=== PATIENT | male | born 1955 | race Two or more races ===

== ENCOUNTER 2016-08-16 07:04 | Inpatient (IN) | payer MEDICAID ==
[2016-08-16] VITALS (7 sets, daily range): BP systolic 105–179; BP diastolic 57–87
[~2016-08-16] VITALS: Ht 170.2 cm; Wt 81.6 kg
[2016-08-16] MEDS ORDERED: LANTUS SOL100 UNIT/1 SUBQ (07:05)
[2016-08-16] MEDS ORDERED: BP MED (07:05)
--- NOTE | 2016-08-16 07:18 | Emergency Room Report ---
History of Present Illness General Chief Complaint: Upper Respiratory Illness Source: Patient Present Illness HPI Patient present with complaints of ongoing cough and congestion Patient reports that he was at [facility] with pneumonia recently Denies any vomiting Denies any diarrhea Patient has increased anterior chest wall pain with a cough Questionable low-grade fever Denies any neck pain or photophobia Denies any recent travel Allergies: Coded Allergies: No Known Allergies (Unverified , 08/16/16) Patient History Past Medical History: see triage record Pertinent Family History: none Reviewed Nursing Documentation: PMH: Agreed, PSxH: Agreed Nursing Documentation-PMH Hx Hypertension: Yes Hx Diabetes: Yes Review of Systems All Other Systems: negative except mentioned in HPI Physical Exam Vital Signs Date Time Temp Pulse Resp B/P Pulse Ox O2 Delivery O2 Flow Rate FiO2 08/16/16 06:59 99.5 101 20 185/90 100 Room Air Sp02 EP Interpretation: reviewed, normal General Appearance: well appearing, no apparent distress Head: normocephalic, atraumatic Eyes: bilateral eye EOMI, bilateral eye PERRL ENT: hearing grossly normal, normal pharynx, TMs + canals normal, uvula midline Neck: full range of motion, supple, no meningismus, no bony tend Respiratory: no rhonchi, no respiratory distress, no retraction, no accessory muscle use, crackles - Final crackles in both lower lobes, otherwise moving air well Cardiovascular #1: normal peripheral pulses, regular rate, rhythm, no edema, no gallop, no JVD, no murmur Gastrointestinal: normal bowel sounds, non tender, soft, no mass, no organomegaly, non-distended, no guarding, no hernia, no pulsatile mass, no rebound Genitourinary: no CVA tenderness Musculoskeletal: normal inspection Neurologic: oriented x3, responsive, supervisor records change III-XII nml as tested, motor strength/ tone normal, sensory intact Psychiatric: mood/affect normal Skin: normal color, no rash, warm/dry, palpation normal Lymphatic: normal inspection, no adenopathy Medical Decision Making Diagnostic Impression: Primary Impression: CHF (congestive heart failure) Additional Impression: Pleural effusion ER Course Patient is a fairly complex patient with multiple differential to consideration including but not limited to cardiac cardiopulmonary and vascular emergencies Patient's showing evidence of cardiomegaly, left lower lobe is also abnormal Patient was provided with diuretics and antibiotics And at this time requires admission for further care Labs Test 08/16/16 07:18 White Blood Count 7.3 K/UL (4.8-10.8) Red Blood Count 3.95 M/UL (4.70-6.10) Hemoglobin 11.1 G/DL (14.2-18.0) Hematocrit 34.3 % (42.0-52.0) Mean Corpuscular Volume 87 FL (80-99) Mean Corpuscular Hemoglobin 28.2 PG (27.0-31.0) Mean Corpuscular Hemoglobin Concent 32.5 G/DL (32.0-36.0) Red Cell Distribution Width 13.1 % (11.6-14.8) Platelet Count 103 K/UL (150-450) Mean Platelet Volume 9.6 FL (6.5-10.1) Neutrophils (%) (Auto) % (45.0-75.0) Lymphocytes (%) (Auto) % (20.0-45.0) Monocytes (%) (Auto) % (1.0-10.0) Eosinophils (%) (Auto) % (0.0-3.0) Basophils (%) (Auto) % (0.0-2.0) Differential Total Cells Counted 100 Neutrophils % (Manual) 93 % (45-75) Lymphocytes % (Manual) 4 % (20-45) Monocytes % (Manual) 1 % (1-10) Eosinophils % (Manual) 0 % (0-3) Basophils % (Manual) 2 % (0-2) Band Neutrophils 0 % (0-8) Platelet Estimate Decreased Platelet Morphology Normal Red Blood Cell Morphology Normal Sodium Level 139 mEQ/L (135-145) Potassium Level 3.9 mEQ/L (3.4-4.9) Chloride Level 99 mEQ/L (98-107) Carbon Dioxide Level 25 mEQ/L (20-30) Anion Gap 15 (5-15) Blood Urea Nitrogen 33 mg/dL (7-23) Creatinine 3.0 mg/dL (0.7-1.2) Estimat Glomerular Filtration Rate 21.4 mL/min (>60) Glucose Level 268 mg/dL (74-106) Calcium Level 7.8 mg/dL (8.6-10.2) Total Bilirubin 0.3 mg/dL (0.0-1.2) Aspartate Amino Transf (AST/SGOT) 58 U/L (5-40) Alanine Aminotransferase (ALT/SGPT) 34 U/L (3-41) Alkaline Phosphatase 93 U/L (40-129) Total Creatine Kinase 802 U/L (38-174) Creatine Kinase MB 5.7 ng/mL (< 6.7) Creatine Kinase MB Relative Index 0.7 Troponin I < 0.30 ng/mL (<=0.30) Pro-B-Type Natriuretic Peptide 01893 pg/mL (0-125) Total Protein 5.5 g/dL (6.6-8.7) Albumin 2.6 g/dL (3.5-5.2) Globulin 2.9 g/dL Albumin/Globulin Ratio 0.8 (1.0-2.7) EKG Diagnostic Results Rate: normal Rhythm: NSR ST Segments: other - Specific ST and T wave changes, interventricular block Rhythm Strip Diag. Results EP Interpretation: yes Rate: 67 Rhythm: NSR, no PVC's, no ectopy Chest X-Ray Diagnostic Results EP Interpretation: Yes Findings: no pneumothorax, other - Cardiomegaly, pulmonary congestion, left lower lobe atelectasis/effusion/pneumonia Number of Views: 1 CT/MRI/US Diagnostic Results CT/MRI/US Diagnostic Results : Impression CT chest pain for further inpatient followup Last Vital Signs Date Time Temp Pulse Resp B/P Pulse Ox O2 Delivery O2 Flow Rate FiO2 08/16/16 06:59 99.5 101 20 185/90 100 Room Air Status: improved Disposition: ADMITTED INPATIENT Condition: Serious BRIGITTE HANCOCK D.O. Aug 16, 2016 07:18
[2016-08-16] MEDS ORDERED: Albuterol ud Inhalation HHN ONE (07:30)
[2016-08-16] MEDS ORDERED: Ketorolac 30mg Inj IV ONE (07:30)
[2016-08-16] MEDS ORDERED: Promethazine/Codeine 5ml UD ORAL ONE (07:30)
[2016-08-16 07:40] LABS: MEAN CORPUSCULAR HEMOGLOBIN 28.2 PG (27.0-31.0); MEAN CORPUSCULAR HGB CONC 32.5 G/DL (32.0-36.0); MEAN CORPUSCULAR VOLUME 87 FL (80-99); MEAN PLATELET VOLUME 9.6 FL (6.5-10.1); PLATELET COUNT 103 K/UL (150-450); RED BLOOD COUNT 3.95 M/UL (4.70-6.10); RED CELL DISTRIBUTION WIDTH 13.1 % (11.6-14.8); WHITE BLOOD COUNT 7.3 K/UL (4.8-10.8)
[2016-08-16 07:52] LABS: ALBUMIN/GLOBULIN RATIO 0.8 (1.0-2.7); CALCIUM 7.8 mg/dL (8.6-10.2); GLOMERULAR FILTRATION RATE 21.4 mL/min (>60); POTASSIUM 3.9 mEQ/L (3.4-4.9); TOTAL PROTEIN 5.5 g/dL (6.6-8.7); TROPONIN I < 0.30 ng/mL (<=0.30)
[2016-08-16] MEDS ORDERED: Aspirin Baby 81mg ORAL ONE (08:00)
[2016-08-16 08:02] LABS: BAND NEUTROPHILS % (MANUAL) 0 % (0-8); BASOPHILS % (MANUAL) 2 % (0-2); EOSINOPHILS % (MANUAL) 0 % (0-3); LYMPHOCYTES % (MANUAL) 4 % (20-45); NEUTROPHILS % (MANUAL) 93 % (45-75); PLATELET ESTIMATE DECREASED; PLATELET MORPHOLOGY NORMAL; TOTAL CELLS COUNTED 100
[2016-08-16 08:03] LABS: CKMB 5.7 ng/mL (< 6.7)
[2016-08-16] MEDS ORDERED: Acetaminophen 500mg (ES) tab ORAL ONE (10:15)
[2016-08-16] MEDS ORDERED: ASPIRIN81 MG ORAL (10:16)
[2016-08-16] MEDS ORDERED: LISINOPRIL5 MG ORAL (10:16)
--- NOTE | 2016-08-16 10:43 | Diagnostic Imaging Report ---
Clinical Indication: SOB, ongoing cough and congestion, increased anterior chest wall pain, questionable low-grade fever Technique: Spiral acquisitions obtained through the chest. No IV contrast utilized, due to renal insufficiency. Multiplanar reconstructions generated. Total dose length product 704 mGycm. CTDIvol(s) 19 mGy Comparison: None Findings:There are small bilateral pleural effusions, slightly larger on the left than on the right. Effusion on the left could be loculated. There is some compressive parenchymal atelectasis at both lung bases. No definite infiltrates. No masses or nodules, or congestion. The trachea and proximal bronchi appear unremarkable. There is fluid surrounding the heart. However, this appears to be outside the pericardium-within the pericardial fat and extending into the anterior mediastinal fat and cephalad into the periphery of the prevascular space. There are prominent although not frankly enlarged mediastinal lymph nodes. There are dense coronary artery calcifications. The heart is borderline enlarged. Included thyroid is unremarkable. No axillary or chest wall mass or adenopathy. The included upper abdominal anatomy demonstrates splenomegaly, with the spleen measuring at least 14.4 cm long axis dimension. The esophagus is unremarkable. There is an incompletely healed fracture with callus of the lateral right ninth rib. Impression: Small bilateral pleural effusions, larger on the left on the right. That on the left could be loculated Basilar compressive atelectasis Unusual mediastinal fluid which appears to be extrapericardial. Etiology uncertain. Borderline cardiomegaly Incompletely healed right ninth rib fracture Splenomegaly The CT scanner at [facility] is accredited by the [employer] and the scans are performed using protocols designed to limit radiation exposure to as low as reasonably achievable to attain images of sufficient resolution adequate for diagnostic evaluation.
[2016-08-16] MEDS ORDERED: Norco 5mg/325mg tab ORAL PRN (13:45)
[2016-08-16] MEDS ORDERED: Nitroglycerin Subl 0.4mg tab (Bottle Of 25) SL PRN (13:45)
[2016-08-16] MEDS: Heparin 5000 units/ml inj SUBQ SCH ×2 (14:00→22:00)
[2016-08-16 15:10] LABS: TROPONIN I < 0.30 ng/mL (<=0.30)
[2016-08-16] MEDS ORDERED: Levemir Flexpen SUBQ SCH (16:00)
--- NOTE | 2016-08-16 16:41 | History & Physical ---
History and Physical History & Physicial Dictated for Int Med-Dr Frances no. [id number]. MARCUS GIL Aug 16, 2016 16:41
[2016-08-16] MEDS: NovoLOG Insulin Flexpen SUBQ SCH ×2 (16:57→21:00)
--- NOTE | 2016-08-16 17:30 | Consultation ---
History of Present Illness General Date patient seen: Aug 16, 2016 Chief Complaint: Upper Respiratory Illness Present Illness HPI 61 year old, with hx of recent bronchitis/ pneumonia treated with oral antibiotics three weeks ago, presented with cc of pleuritic chest pain. CT of chest showing loculated pleural effusion Allergies: Coded Allergies: No Known Allergies (Unverified , 08/16/16) Medication History Scheduled Aspirin* (Aspirin*), 81 MG ORAL DAILY, (Reported) Insulin Glargine (Lantus), 20 SUBQ DAILY, (Reported) Lisinopril (Lisinopril*), Unknown Dose ORAL BID, (Reported) Miscellaneous Medications [Bp Med], (Reported) Patient History Healthcare decision maker Resuscitation status Advanced Directive on File Review of Systems All Other Systems: negative except mentioned in HPI Physical Exam General Appearance: WD/WN Neck: non-tender, supple Respiratory/Chest: chest wall non-tender, lungs clear Cardiovascular/Chest: normal peripheral pulses, regular rhythm, no JVD Abdomen: normal bowel sounds, soft Last 24 Hour Vital Signs Date Time Temp Pulse Resp B/P Pulse Ox O2 Delivery O2 Flow Rate FiO2 08/16/16 16:00 97.8 76 19 124/74 97 Room Air 08/16/16 13:40 97.7 75 17 120/75 75 Room Air 08/16/16 12:25 98.6 77 20 120/60 96 Room Air 08/16/16 12:17 98.6 77 20 120/60 96 Room Air 08/16/16 11:17 98.6 80 20 105/67 96 Room Air 08/16/16 11:16 98.6 08/16/16 09:27 99.3 08/16/16 09:24 99.3 94 23 113/57 95 Room Air 08/16/16 07:50 99.7 08/16/16 07:33 100 15 99 08/16/16 07:31 100 15 98 Room Air 08/16/16 07:30 100 15 Room Air 08/16/16 07:22 98 14 Room Air 08/16/16 07:22 99.5 98 14 179/86 100 Room Air 08/16/16 06:59 99.5 101 20 185/90 100 Room Air Laboratory Tests Test 08/16/16 07:18 08/16/16 14:20 White Blood Count 7.3 K/UL (4.8-10.8) Red Blood Count 3.95 M/UL (4.70-6.10) L Hemoglobin 11.1 G/DL (14.2-18.0) L Hematocrit 34.3 % (42.0-52.0) L Mean Corpuscular Volume 87 FL (80-99) Mean Corpuscular Hemoglobin 28.2 PG (27.0-31.0) Mean Corpuscular Hemoglobin Concent 32.5 G/DL (32.0-36.0) Red Cell Distribution Width 13.1 % (11.6-14.8) Platelet Count 103 K/UL (150-450) L Mean Platelet Volume 9.6 FL (6.5-10.1) Neutrophils (%) (Auto) % (45.0-75.0) Lymphocytes (%) (Auto) % (20.0-45.0) Monocytes (%) (Auto) % (1.0-10.0) Eosinophils (%) (Auto) % (0.0-3.0) Basophils (%) (Auto) % (0.0-2.0) Differential Total Cells Counted 100 Neutrophils % (Manual) 93 % (45-75) H Lymphocytes % (Manual) 4 % (20-45) L Monocytes % (Manual) 1 % (1-10) Eosinophils % (Manual) 0 % (0-3) Basophils % (Manual) 2 % (0-2) Band Neutrophils 0 % (0-8) Platelet Estimate Decreased L Platelet Morphology Normal Red Blood Cell Morphology Normal Sodium Level 139 mEQ/L (135-145) Potassium Level 3.9 mEQ/L (3.4-4.9) Chloride Level 99 mEQ/L (98-107) Carbon Dioxide Level 25 mEQ/L (20-30) Anion Gap 15 (5-15) Blood Urea Nitrogen 33 mg/dL (7-23) H Creatinine 3.0 mg/dL (0.7-1.2) H Estimat Glomerular Filtration Rate 21.4 mL/min (>60) Glucose Level 268 mg/dL (74-106) H Calcium Level 7.8 mg/dL (8.6-10.2) L Total Bilirubin 0.3 mg/dL (0.0-1.2) Aspartate Amino Transf (AST/SGOT) 58 U/L (5-40) H Alanine Aminotransferase (ALT/SGPT) 34 U/L (3-41) Alkaline Phosphatase 93 U/L (40-129) Total Creatine Kinase 802 U/L (38-174) H Creatine Kinase MB 5.7 ng/mL (< 6.7) Creatine Kinase MB Relative Index 0.7 Troponin I < 0.30 ng/mL (<=0.30) < 0.30 ng/mL (<=0.30) Pro-B-Type Natriuretic Peptide 88619 pg/mL (0-125) H Total Protein 5.5 g/dL (6.6-8.7) L Albumin 2.6 g/dL (3.5-5.2) L Globulin 2.9 g/dL Albumin/Globulin Ratio 0.8 (1.0-2.7) L Height (Feet): 5 Height (Inches): 7.00 Weight (Pounds): 180 Medications Current Medications Medications (Trade) Dose Ordered Sig/Laquita Route PRN Reason Start Time Stop Time Status Last Admin Dose Admin Acetaminophen/ Hydrocodone Bitart ([place] 5/325) 1 tab Q4H PRN ORAL Moderate Pain (Pain Scale 4-6) 08/16/16 13:45 08/23/16 13:44 08/16/16 14:14 Aspirin (ASA) 81 mg DAILY ORAL 08/17/16 09:00 09/16/16 08:59 Dextrose STAT PRN IV Hypoglycemia 08/16/16 14:00 09/15/16 13:59 Heparin Sodium (Porcine) (Heparin 5000 units/ml) 5,000 units EVERY 8 HOURS SUBQ 08/16/16 14:00 09/15/16 13:59 Hydromorphone HCl (Dilaudid) 1 mg Q4H PRN IVP Severe Pain (Pain Scale 7-10) 08/16/16 17:15 08/23/16 17:14 Insulin Aspart (NovoLOG) BEFORE MEALS AND HS SUBQ 08/16/16 16:30 09/15/16 16:29 08/16/16 16:57 Insulin Detemir (Levemir) 20 units DAILY SUBQ 08/16/16 16:00 09/15/16 15:59 08/16/16 16:52 Levofloxacin (Levaquin) 100 ml @ 100 mls/hr Q24H IVPB 08/17/16 09:00 08/24/16 08:59 Lisinopril (Zestril) 5 mg DAILY ORAL 08/17/16 09:00 09/16/16 08:59 Nitroglycerin (Ntg) 0.4 mg Q5M PRN SL Prn Chest Pain 08/16/16 13:45 09/15/16 13:44 Ondansetron HCl (Zofran) 4 mg Q6H PRN IVP Nausea & Vomiting 08/16/16 17:15 09/15/16 17:14 Assessment/Plan Problem List: (1) Pleural effusion ICD Codes: J90 - Pleural effusion, not elsewhere classified SNOMED: 80094410 (2) Pneumonia ICD Codes: J18.9 - Pneumonia, unspecified organism SNOMED: 826024356 (3) ATN (acute tubular necrosis) ICD Codes: N17.0 - Acute kidney failure with tubular necrosis SNOMED: 39017129 Assessment/Plan iv antibioitcs check cultures cxr in am ortiz culture LINDA GREENWOOD Aug 16, 2016 17:30
--- NOTE | 2016-08-16 17:36 | Diagnostic Imaging Report ---
Indication: SOB, chest pain Technique: One view of the chest Comparison: none Findings: The heart is enlarged. Infiltrate is seen in the left in the lower lung periphery. There is probably a small amount of pleural fluid on the left. Right lung and pleural space are clear except for some right basilar atelectasis. The heart is borderline Impression: Left lateral basilar infiltrate and pleural effusion Borderline cardiomegaly
[2016-08-16] MEDS: HYDROmorphone 1mg/ml Carpuject IVP PRN ×2 (18:28→23:37)
--- NOTE | 2016-08-16 18:56 | Cardiology Progress Note ---
Assessment/Plan Assessment/Plan The patient is seen and examined, full consult note is dictated. Objective Last 24 Hour Vital Signs Date Time Temp Pulse Resp B/P Pulse Ox O2 Delivery O2 Flow Rate FiO2 08/16/16 16:00 97.8 76 19 124/74 97 Room Air 08/16/16 13:40 97.7 75 17 120/75 75 Room Air 08/16/16 12:25 98.6 77 20 120/60 96 Room Air 08/16/16 12:17 98.6 77 20 120/60 96 Room Air 08/16/16 11:17 98.6 80 20 105/67 96 Room Air 08/16/16 11:16 98.6 08/16/16 09:27 99.3 08/16/16 09:24 99.3 94 23 113/57 95 Room Air 08/16/16 07:50 99.7 08/16/16 07:33 100 15 99 08/16/16 07:31 100 15 98 Room Air 08/16/16 07:30 100 15 Room Air 08/16/16 07:22 98 14 Room Air 08/16/16 07:22 99.5 98 14 179/86 100 Room Air 08/16/16 06:59 99.5 101 20 185/90 100 Room Air Laboratory Tests Test 08/16/16 07:18 08/16/16 14:20 White Blood Count 7.3 K/UL (4.8-10.8) Red Blood Count 3.95 M/UL (4.70-6.10) L Hemoglobin 11.1 G/DL (14.2-18.0) L Hematocrit 34.3 % (42.0-52.0) L Mean Corpuscular Volume 87 FL (80-99) Mean Corpuscular Hemoglobin 28.2 PG (27.0-31.0) Mean Corpuscular Hemoglobin Concent 32.5 G/DL (32.0-36.0) Red Cell Distribution Width 13.1 % (11.6-14.8) Platelet Count 103 K/UL (150-450) L Mean Platelet Volume 9.6 FL (6.5-10.1) Neutrophils (%) (Auto) % (45.0-75.0) Lymphocytes (%) (Auto) % (20.0-45.0) Monocytes (%) (Auto) % (1.0-10.0) Eosinophils (%) (Auto) % (0.0-3.0) Basophils (%) (Auto) % (0.0-2.0) Differential Total Cells Counted 100 Neutrophils % (Manual) 93 % (45-75) H Lymphocytes % (Manual) 4 % (20-45) L Monocytes % (Manual) 1 % (1-10) Eosinophils % (Manual) 0 % (0-3) Basophils % (Manual) 2 % (0-2) Band Neutrophils 0 % (0-8) Platelet Estimate Decreased L Platelet Morphology Normal Red Blood Cell Morphology Normal Sodium Level 139 mEQ/L (135-145) Potassium Level 3.9 mEQ/L (3.4-4.9) Chloride Level 99 mEQ/L (98-107) Carbon Dioxide Level 25 mEQ/L (20-30) Anion Gap 15 (5-15) Blood Urea Nitrogen 33 mg/dL (7-23) H Creatinine 3.0 mg/dL (0.7-1.2) H Estimat Glomerular Filtration Rate 21.4 mL/min (>60) Glucose Level 268 mg/dL (74-106) H Calcium Level 7.8 mg/dL (8.6-10.2) L Total Bilirubin 0.3 mg/dL (0.0-1.2) Aspartate Amino Transf (AST/SGOT) 58 U/L (5-40) H Alanine Aminotransferase (ALT/SGPT) 34 U/L (3-41) Alkaline Phosphatase 93 U/L (40-129) Total Creatine Kinase 802 U/L (38-174) H Creatine Kinase MB 5.7 ng/mL (< 6.7) Creatine Kinase MB Relative Index 0.7 Troponin I < 0.30 ng/mL (<=0.30) < 0.30 ng/mL (<=0.30) Pro-B-Type Natriuretic Peptide 62469 pg/mL (0-125) H Total Protein 5.5 g/dL (6.6-8.7) L Albumin 2.6 g/dL (3.5-5.2) L Globulin 2.9 g/dL Albumin/Globulin Ratio 0.8 (1.0-2.7) L ESTER SEVILLA Aug 16, 2016 18:56
[2016-08-16 19:55] LABS: APPEARANCE,URINE CLEAR; KETONES,URINE NEGATIVE (NEGATIVE); LEUKOCYTE ESTERASE ,URINE NEGATIVE (NEGATIVE); NITRITE,URINE NEGATIVE (NEGATIVE); PH,URINE 6.5 (4.5-8.0); PROTEIN,URINE 4+ (NEGATIVE); UROBILINOGEN,URINE NORMAL MG/DL (0.0-1.0)
[2016-08-16 20:03] LABS: BACTERIA,URINE FEW /HPF; WBC,URINE 0-2 /HPF (0 - 0)
--- NOTE | 2016-08-16 21:20 | History and Physical Report ---
DATE OF ADMISSION: 08/16/2016 CHIEF COMPLAINT: The patient is a 61-year-old male, who presents with complaint of cough and chest pain. HISTORY OF PRESENT ILLNESS: The patient began to experience cough yesterday, 08/15/2016. The patient states he began to get chest pain. The patient states the cough and the chest pain was so bad he could not sleep. The patient presented to [facility] emergency room. The patient was admitted for cough and chest pain to rule out acute myocardial infarction versus pneumonia. PAST MEDICAL HISTORY: Significant for: 1. Type 2 diabetes. 2. Hypertension. PAST SURGICAL HISTORY: Significant for: 1. 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 2. Cholecystectomy. CURRENT MEDICATIONS: 1. Aspirin 81 mg one tablet p.o. daily. 2. Lantus insulin 20 units subcutaneously at bedtime. 3. Lisinopril 5 mg one tablet p.o. daily. ALLERGIES: No known drug allergies. SOCIAL HISTORY: The patient is single, however, has a long-time partner. The patient denies tobacco use. The patient denies alcohol use, having quit 3 years previously. The patient admits to previous heavy alcohol use. FAMILY HISTORY: Negative for diabetes or coronary artery disease. REVIEW OF SYSTEMS: Constitutional: The patient denies weight loss or weight gain. The patient does complain of subjective fevers and chills. HEENT: The patient denies ear or throat pain. The patient denies headache. Cardiovascular: The patient complains of band-like chest pain as above. The patient denies palpitations. Abdominal: The patient denies nausea, vomiting, diarrhea, or constipation. Genitourinary: The patient denies dysuria or increased frequency of urination. Neuromuscular: The patient denies seizures or generalized weakness. PHYSICAL EXAMINATION: VITAL SIGNS: Temperature 98.6, respirations 20, pulse 80, and blood pressure 105/67. GENERAL: The patient is a well-developed and well-nourished male, who appears older than his stated age. HEENT: Eyes, pupils are equal and responsive to light and accommodation. Extraocular movements are intact. NECK: Supple. No lymphadenopathy. CHEST: Lungs are clear to auscultation bilaterally without wheezes or rales. CARDIOVASCULAR: Regular rhythm and rate. S1 and S2 normal without murmurs, rubs, or gallops. ABDOMEN: Soft, nontender, and nondistended. Positive bowel sounds. No evidence of hepatosplenomegaly. Currently, no rebound or guarding noted. EXTREMITIES: Negative for clubbing, cyanosis, or edema. RECTAL/GENITAL: Refused. NEUROLOGIC: Cranial nerves II through XII are grossly intact without focal deficits. Motor strength is 5/5 bilaterally. Deep tendon reflexes 2+ plantar. LABORATORY AND DIAGNOSTIC STUDIES: WBC 7.3, hemoglobin 11.1, hematocrit 34.3, and platelets 103,000. Sodium 139, potassium 3.9, chloride 99, CO2 of 25, BUN 33, creatinine 3.0, and glucose 268. Troponin less than 0.3. BNP elevated at 18,468. EKG demonstrated normal sinus rhythm. Ventricular rate approximately 100 beats per minute. A right bundle-branch block is noted. Nonspecific ST changes noted. ASSESSMENT: This is a 61-year-old male: 1. Cough. 2. Chest pain. 3. Diabetes type 2. 4. Hypertension. TREATMENT: 1. Chest pain/cough. A CT scan of the chest revealed bilateral pleural effusions. A cardiology consultation was obtained with Dr. Al Adkins. We will follow recommendation of Cardiology. A Cardiolite stress test is pending. 2. Bilateral pleural effusions. A pulmonary consultation was obtained with Dr. Jo Cano. 3. Diabetes type 2. Lantus is non-formulary at [facility]. The patient has been started on Levemir and NovoLog sliding scale. 4. Hypertension. Continue lisinopril as above. 5. Renal failure. This is probably secondary to diabetes and diabetic nephropathy. A nephrology consultation was obtained with Dr. Monsalve. Deangelo Victoria M.D. DR: EREN JOB#: [id number] CC:
[2016-08-16 21:45] LABS: TROPONIN I < 0.30 ng/mL (<=0.30)
[2016-08-16 21:48] LABS: ALANINE AMINOTRANSFERASE 28 U/L (3-41); ALBUMIN/GLOBULIN RATIO 0.8 (1.0-2.7); ANION GAP 15 (5-15); ASPARTATE AMINO TRANSFERASE 54 U/L (5-40); CALCIUM 7.7 mg/dL (8.6-10.2); CARBON DIOXIDE 25 mEQ/L (20-30); CHLORIDE 103 mEQ/L (98-107); CREATININE 3.8 mg/dL (0.7-1.2); GLOMERULAR FILTRATION RATE 16.3 mL/min (>60); HEMOLYSIS 7; MAGNESIUM 1.4 mg/dL (1.7-2.5); PHOSPHORUS 4.1 mg/dL (2.5-4.8); POTASSIUM 4.2 mEQ/L (3.4-4.9); SODIUM 143 mEQ/L (135-145); URIC ACID 7.8 mg/dL (3.0-7.5)
[2016-08-16 22:00] LABS: FREE T3 1.1 pg/mL (2.3-4.2)
[2016-08-17] VITALS (11 sets, daily range): BP systolic 117–182; BP diastolic 68–104
--- NOTE | 2016-08-17 00:19 | Consultation ---
DATE OF CONSULTATION: 08/16/2016 CARDIOLOGY CONSULTATION CONSULTING PHYSICIAN: Al Adkins M.D. REFERRING PHYSICIAN: Renard Frances M.D. REASON FOR CONSULTATION: Management of chest pain. HISTORY OF PRESENT ILLNESS: The patient is a very unfortunate 61-year-old gentleman, who was just recently discharged from [facility] after he was given Z-Jovanny for bronchitis. The patient states that his condition did not improve. He started to have a chill followed by fever and productive cough of brownish phlegm. He states that prior to this condition, he did not have any shortness of breath or any cardiac symptoms with his exertions. On arrival to emergency department, he was also complaining of pleuritic chest pain. Initial evaluation in the emergency department showed low-grade fever with temperature of 99.5 degrees, blood pressure was 185/90, and heart rate of 101. The patient was admitted to telemetry for further evaluation and assessment. Cardiology consultation was made at the request of Dr. Frances for evaluation of chest pain and tachycardia. PAST MEDICAL HISTORY: Includes hypertension, diabetes mellitus, and recent discharge from [facility] for treatment of bronchitis with Zithromax. PAST SURGICAL HISTORY: None. MEDICATIONS: List of medications from home includes aspirin 81 mg p.o. daily, Lantus insulin 20 units subcutaneous daily, lisinopril 5 mg p.o. twice daily, and other medications is unknown. ALLERGIES: No known drug allergies. SOCIAL HISTORY: Denies any tobacco. Used to drink alcohol in the past socially, but not drink anymore. Denies any illicit drug use. FAMILY HISTORY: No premature coronary artery disease in the first-degree relatives. REVIEW OF SYSTEMS: A 12-system review done was essentially negative except what mentioned in the history of present illness. PHYSICAL EXAMINATION: VITAL SIGNS: On arrival of the patient to the hospital, blood pressure was 185/95, pulse of 101, respirations of 20, temperature 99.5 degrees Fahrenheit, and O2 saturation 100% on room air. GENERAL: The patient is a sick-looking or ill-appearing 61-year-old gentleman, who has excessive cough, and in no apparent respiratory distress. HEENT: Atraumatic and normocephalic. Anicteric. Pupils are equal, round, and reactive to light and accommodation. Extraocular muscles intact. NECK: JVP is less than 5 cm. No carotid bruits. Carotid upstrokes 2+ bilaterally. CVS: Normal S1 and S2. Regular rate and rhythm. No murmurs, gallops, or rubs. Tachycardic. PMI is at fourth intercostal space at the midclavicular line. LUNGS: Diminished breath sounds especially at both bases. There is presence of dullness, worse in the left base than the right. There are some crackles in the left base as well. No evidence of rhonchi. ABDOMEN: Soft, nontender, and nondistended. No hepatosplenomegaly. Positive bowel sounds. EXTREMITIES: No evidence of edema, clubbing, or cyanosis. LABORATORY AND DIAGNOSTIC FINDINGS: Sodium 139, potassium 3.9, chloride 99, bicarbonate 25, BUN of 33, creatinine 3.0, glucose is 268, and calcium is 7.8. Troponin I x2 negative. ProBNP was 18,468. WBC 7.3, hemoglobin of 11.1, hematocrit 34.3, and platelet count 103,000 with 93% neutrophils. Chest x-ray shows left basilar infiltrate with additional pleural effusion. CT of chest showed bilateral pleural effusion, left greater than right with some basilar compressive atelectasis. A 12-lead electrocardiogram shows sinus rhythm at rate of 99 with superior axis, right bundle-branch block and left anterior hemiblock. There is possibly RV strain. No acute ischemic changes. QT interval is prolonged. DISCUSSION AND DECISION-MAKING: The patient is a very unfortunate 61-year-old gentleman, seen in Cardiology consultation at the request of Dr. Frances. 1. Dyspnea. In view of the patient's history of productive cough, chill, fever, findings of the chest x-ray with pleural effusion mainly in the left base, the patient's low-grade fever, and left shift, I would like to consider community-acquired pneumonia as a most probable diagnosis. I do not think that the patient can tolerate stress test at this time with the current condition. I would like to have the patient rest and receive antibiotics and oxygen and breathing treatment. 2. Acute myocardial infarction is ruled out. Chest pain is pleuritic in nature as well. A 12-lead ECG does not show any evidence of ischemia. We will obtain 2D echocardiography for assessment of left ventricular function. 3. Sinus tachycardia could be due to fever or pneumonia. I would like to consider hydration in this patient. Positive beta-natriuretic factor does not have a strong positive predictive value. Therefore, it does not reflect congestive heart failure. Clinically, the patient does not appear to be in heart failure. A 2D echocardiography will shed light in this condition. 4. History of diabetes mellitus. 5. History of hypertension, currently blood pressure is well controlled. We will continue lisinopril at this time. 6. Further therapeutic and diagnostic decision will be based on results of 2D echocardiography. I would like to thank Dr. Frances for the courtesy of this consultation. Al Adkins M.D. DR: MARY JOB#: [id number] CC:
[2016-08-17] MEDS ORDERED: Nitroglycerin Subl 0.4mg tab (Bottle Of 25) SL PRN (01:30)
[2016-08-17] MEDS: HYDROmorphone 1mg/ml Carpuject IVP PRN ×5 (04:26→23:23)
[2016-08-17] MEDS: Heparin 5000 units/ml inj SUBQ SCH ×3 (06:00→21:41)
[2016-08-17] MEDS: NovoLOG Insulin Flexpen SUBQ SCH ×4 (06:17→20:45)
[2016-08-17 06:44] LABS: MEAN CORPUSCULAR VOLUME 84 FL (80-99); MEAN PLATELET VOLUME 11.4 FL (6.5-10.1); PLATELET COUNT 100 K/UL (150-450); RED BLOOD COUNT 3.43 M/UL (4.70-6.10); RED CELL DISTRIBUTION WIDTH 13.2 % (11.6-14.8)
[2016-08-17 06:51] LABS: ALANINE AMINOTRANSFERASE 28 U/L (3-41); ALBUMIN/GLOBULIN RATIO 0.7 (1.0-2.7); ANION GAP 16 (5-15); ASPARTATE AMINO TRANSFERASE 57 U/L (5-40); CALCIUM 7.6 mg/dL (8.6-10.2); CARBON DIOXIDE 23 mEQ/L (20-30); CHLORIDE 99 mEQ/L (98-107); CREATININE 3.5 mg/dL (0.7-1.2); GLOMERULAR FILTRATION RATE 17.9 mL/min (>60); HEMOLYSIS 0; POTASSIUM 4.1 mEQ/L (3.4-4.9); SODIUM 138 mEQ/L (135-145)
[2016-08-17 06:54] LABS: TROPONIN I < 0.30 ng/mL (<=0.30)
[2016-08-17 07:25] LABS: CRP QUANT 3.8 mg/dL (< 0.5); MAGNESIUM 1.4 mg/dL (1.7-2.5)
[2016-08-17] MEDS: Aspirin Baby 81mg ORAL SCH (08:21)
[2016-08-17] MEDS: Levemir Flexpen SUBQ SCH (08:26)
[2016-08-17] MEDS ORDERED: Aspirin Baby 81mg ORAL SCH (09:00)
[2016-08-17] MEDS ORDERED: Lisinopril 2.5mg tab ORAL SCH ×2 (09:00)
[2016-08-17 09:14] LABS: CORTISOL LC 22.2 ug/dL (.)
[2016-08-17 10:34] LABS: BAND NEUTROPHILS % (MANUAL) 0 % (0-8); BASOPHILS % (MANUAL) 0 % (0-2); EOSINOPHILS % (MANUAL) 0 % (0-3); HYPOCHROMASIA 1+; LYMPHOCYTES % (MANUAL) 2 % (20-45); NEUTROPHILS % (MANUAL) 97 % (45-75); PLATELET ESTIMATE DECREASED; PLATELET MORPHOLOGY NORMAL; TOTAL CELLS COUNTED 100
--- NOTE | 2016-08-17 11:40 | Consultation ---
Consult Note Consult Note Asked to evaluate for high BUN and Cr 61 year old, with hx of recent bronchitis/ pneumonia treated with oral antibiotics three weeks ago, presented with cc of pleuritic chest pain. CT of chest showing loculated pleural effusion. patient interviewed, examined, data reviewed. . Assessment/Plan Status: CKD due to Diabetic Nephropathy- DM , with episodic hypoglycemia Anemia Pneumonia / pleural effusion / right ninth rib fracture HTN OOC TR plan: Urine studies- Avoid Nephrotoxics- Kidney FREDDY BP control RONALD Baker Aug 17, 2016 11:40
[2016-08-17 12:23] LABS: CHOLESTEROL 175 mg/dL (< 200); CHOLESTEROL/HDL RATIO 2.3 (3.3-4.4); HEMOGLOBIN A1C 8.4 % (< 6.0); HEMOLYSIS 2; LDL CHOLESTEROL (CALC.) 81 mg/dL (60-99); URIC ACID 7.4 mg/dL (3.0-7.5)
[2016-08-17] MEDS: Docusate 100mg cap ORAL SCH ×2 (12:23→17:38)
[2016-08-17 12:33] LABS: FERRITIN 119 ng/mL (10-230)
--- NOTE | 2016-08-17 13:10 | Pulmonology Progress Note ---
Assessment/Plan Assessment/Plan ASSESSMENT pleuritic chest pain PNA pleural effusion right ninth rib fracture DM with episode of hypoglycemia CKD 2 to diabetic nephropathy anemia severe TR hypertensive urgency PLAN OF CARE MS floor O2 HHN prn fup with CXR in am empiric abx sputum cx if able antitussive prn troponin x 3 negative, ECG no ischemic changes, pt was r/out for ACS cardio follows chest pain pleuritic in origin, likely 2 to underlying PNA as well as possibly element from not completely healed yet R ninth rib fracture initial CXR Left lateral basilar infiltrate and pleural effusion. Borderline cardiomegaly CT chest -CT chest with small bilateral pleural effusions, larger on the left on the right. The one on the left could be loculated Basilar compressive atelectasis Unusual mediastinal fluid which appears to be extrapericardial. Borderline cardiomegaly ECHO with EF of 50-55% , RVSP of10 and evidence of severe TR tachycardia resolved, likely 2 to fevers, infection continue ASA lipid panel stable BP management , nephro added CCB, continue DECLAN, monitor renal parameters, lytes avoid nephrotoxic renal US nephro follows per nephro CRF likely 2 to underlying diabetic nephropathy DVT prophylaxis HH trending down, anemia work up, transfuse prn, BS management with SS of insulin and Levemir, caution to avoid episode of hypoglycemia, HS snack case discussed and evaluated by supervising physician Subjective Allergies: Coded Allergies: No Known Allergies (Unverified , 08/16/16) Subjective on RA, no signs of respiratory distress still with chest was pain R side with deep breathing hx of not completely healed yet R ninth rib fracture wheezing,cough denies SOB,l BP elevated earlier Objective Last 24 Hour Vital Signs Date Time Temp Pulse Resp B/P Pulse Ox O2 Delivery O2 Flow Rate FiO2 08/17/16 12:23 73 162/84 08/17/16 12:09 98.1 73 20 162/84 94 Room Air 08/17/16 09:00 80 161/76 08/17/16 08:21 182/100 08/17/16 08:17 98.3 80 18 182/100 96 Nasal Cannula 2.0 08/17/16 08:00 80 18 176/96 98 Nasal Cannula 2.0 08/17/16 07:55 77 18 170/104 98 Nasal Cannula 2.0 08/17/16 07:50 78 18 182/96 98 Nasal Cannula 2.0 08/17/16 07:49 182/96 08/17/16 04:00 98.3 89 18 133/76 98 Room Air 08/17/16 00:20 98.5 08/17/16 00:10 99.7 100 20 150/85 97 Room Air 08/17/16 00:00 100 08/16/16 20:00 72 08/16/16 20:00 97.9 84 22 145/87 96 Room Air 08/16/16 16:00 81 08/16/16 16:00 97.8 76 19 124/74 97 Room Air 08/16/16 13:40 97.7 75 17 120/75 75 Room Air Intake and Output 08/16/16 08/17/16 19:00 07:00 Intake Total 390 ml 260 ml Output Total 210 ml 1500 ml Balance 180 ml -1240 ml Intake Oral 240 ml 260 ml IV Total 150 ml Output Urine Total 210 ml 1500 ml # Voids 1 General Appearance: no acute distress HEENT: normocephalic, atraumatic Respiratory/Chest: lungs clear - with moderate air entry , no respiratory distress, no accessory muscle use Cardiovascular: normal rate, regular rhythm, no JVD Abdomen: normal bowel sounds, soft, non tender, non distended Genitourinary: normal external genitalia Extremities: no edema Neurologic/Psychiatric: alert, responsive, normal mood/affect Laboratory Tests 08/16/16 14:20: Plasma/Serum Osmolality [Pending], Troponin I < 0.30, Cortisol 22.2 08/16/16 19:20: Urine Color Yellow, Urine Appearance Clear, Urine pH 6.5, Urine Specific [place] 1.010, Urine Protein 4+H, Urine Glucose (UA) 3+H, Urine Ketones Negative , Urine Occult Blood 3+H, Urine Nitrite Negative, Urine Bilirubin Negative, Urine Urobilinogen Normal, Urine Leukocyte Esterase Negative, Urine RBC 2-4H, Urine WBC 0-2, Urine Squamous Epithelial Cells None, Urine Bacteria Few, Urine Eosinophils None seen, Urine Osmolality [Pending], Urine Random Sodium 48, Urine Random Chloride 45, Urine Potassium Timed 45 08/16/16 21:25: Troponin I < 0.30, Sodium Level 143, Potassium Level 4.2, Chloride Level 103, Carbon Dioxide Level 25, Anion Gap 15, Blood Urea Nitrogen 39H, Creatinine 3.8H , Estimat Glomerular Filtration Rate 16.3, Glucose Level 35#*L, Uric Acid 7.8H, Calcium Level 7.7L, Phosphorus Level 4.1, Magnesium Level 1.4L, Total Bilirubin < 0.2, Aspartate Amino Transf (AST/SGOT) 54H, Alanine Aminotransferase (ALT/SGPT ) 28, Alkaline Phosphatase 76, Total Creatine Kinase 1085H, Total Protein 5.0L, Albumin 2.3L, Globulin 2.7, Albumin/Globulin Ratio 0.8L, Thyroid Stimulating Hormone (TSH) 2.230, Free Thyroxine 0.83L, Free Triiodothyronine 1.1L 08/17/16 05:15: Troponin I < 0.30, Sodium Level 138, Potassium Level 4.1, Chloride Level 99, Carbon Dioxide Level 23, Anion Gap 16H, Blood Urea Nitrogen 37H, Creatinine 3.5H , Estimat Glomerular Filtration Rate 17.9, Glucose Level 85, Uric Acid 7.4, Calcium Level 7.6L, Magnesium Level 1.4L, Total Bilirubin < 0.2, Aspartate Amino Transf (AST/SGOT) 57H, Alanine Aminotransferase (ALT/SGPT) 28, Alkaline Phosphatase 76, Total Creatine Kinase 1096H, Total Protein 5.0L, Albumin 2.2L, Globulin 2.8, Albumin/Globulin Ratio 0.7L, White Blood Count 7.0, Red Blood Count 3.43L, Hemoglobin 9.3L, Hematocrit 29.0L, Mean Corpuscular Volume 84, Mean Corpuscular Hemoglobin 27.0, Mean Corpuscular Hemoglobin Concent 32.0, Red Cell Distribution Width 13.2, Platelet Count 100L, Mean Platelet Volume 11.4H, Neutrophils (%) (Auto) , Lymphocytes (%) (Auto) , Monocytes (%) (Auto) , Eosinophils (%) (Auto) , Basophils (%) (Auto) , Differential Total Cells Counted 100, Neutrophils % (Manual) 97H, Lymphocytes % (Manual) 2L, Monocytes % (Manual) 1, Eosinophils % (Manual) 0, Basophils % (Manual) 0, Band Neutrophils 0 , Platelet Estimate DecreasedL, Platelet Morphology Normal, Hypochromasia 1+, Erythrocyte Sedimentation Rate 115H, Hemoglobin A1c 8.4H, Ferritin 119, Gamma Glutamyl Transpeptidase 46, C-Reactive Protein, Quantitative 3.8H, Pro-B-Type Natriuretic Peptide 83225M, Triglycerides Level 84, Cholesterol Level 175, LDL Cholesterol 81, HDL Cholesterol 77H, Cholesterol/HDL Ratio 2.3L, Vitamin B12 Level [Pending], Folate [Pending] Current Medications Medications (Trade) Dose Ordered Sig/Laquita Route PRN Reason Start Time Stop Time Status Last Admin Dose Admin Acetaminophen/ Hydrocodone Bitart ([place] 5/325) 1 tab Q4H PRN ORAL Moderate Pain (Pain Scale 4-6) 08/17/16 01:45 08/24/16 01:44 Amlodipine Besylate (Norvasc) 10 mg DAILY ORAL 08/17/16 13:00 09/16/16 12:59 08/17/16 12:23 Aspirin (ASA) 81 mg DAILY ORAL 08/17/16 09:00 09/16/16 08:59 08/17/16 08:21 Clonidine HCl (Catapres) 0.1 mg Q4H PRN ORAL bp over 160 syst 08/17/16 11:45 09/16/16 11:44 Dextrose (Dextrose 50%) STAT PRN IV Hypoglycemia 08/17/16 14:00 09/16/16 13:59 Docusate Sodium (Colace) 100 mg THREE TIMES A DAY ORAL 08/17/16 13:00 09/16/16 12:59 08/17/16 12:23 Heparin Sodium (Porcine) (Heparin 5000 units/ml) 5,000 units EVERY 8 HOURS SUBQ 08/17/16 06:00 09/16/16 05:59 Hydromorphone HCl (Dilaudid) 1 mg Q4H PRN IVP Severe Pain (Pain Scale 7-10) 08/17/16 05:15 08/24/16 05:14 08/17/16 12:25 Insulin Aspart (NovoLOG) BEFORE MEALS AND HS SUBQ 08/17/16 06:30 09/16/16 06:29 Insulin Detemir (Levemir) 20 units DAILY SUBQ 08/17/16 09:00 09/16/16 08:59 Levofloxacin (Levaquin) 100 ml @ 100 mls/hr Q24H IVPB 08/17/16 09:00 08/24/16 08:59 08/17/16 08:19 Magnesium Sulfate (Magnesium Sulfate 1gm/100ml) 100 ml @ 100 mls/hr Q1H IVPB 08/17/16 12:00 08/17/16 13:59 08/17/16 12:23 Nitroglycerin (Ntg) 0.4 mg Q5M PRN SL Prn Chest Pain 08/17/16 01:30 09/16/16 01:29 08/17/16 07:49 Ondansetron HCl (Zofran) 4 mg Q6H PRN IVP Nausea & Vomiting 08/17/16 05:15 09/16/16 05:14 Tamsulosin HCl 0.4 mg 0.4 mg BEDTIME ORAL 08/17/16 21:00 09/16/16 20:59 Victor Manuel ([facility])Stacey NP Aug 17, 2016 13:10
[2016-08-17 14:54] LABS: HEMOLYSIS 8; IRON 13 ug/dL (59-158); TOTAL IRON BINDING CAPACITY 182 ug/dL (250-400)
--- NOTE | 2016-08-17 15:06 | Cardiology Report ---
APPROVED REPORT EKG Measurement Heart [id number] Normal sinus rhythm Left axis deviation Right bundle branch block and left anterior fascicular block Inferior infarct, age undetermined Abnormal ECG
--- NOTE | 2016-08-17 15:39 | Consultation ---
History of Present Illness General Chief Complaint: Upper Respiratory Illness Reason for Consultation: pulmonary Present Illness HPI CXR Left lateral basilar infiltrate and pleural effusion. Borderline cardiomegaly Allergies: Coded Allergies: No Known Allergies (Unverified , 08/16/16) Medication History Scheduled Aspirin* (Aspirin*), 81 MG ORAL DAILY, (Reported) Insulin Glargine (Lantus), 20 SUBQ DAILY, (Reported) Lisinopril (Lisinopril*), Unknown Dose ORAL BID, (Reported) Miscellaneous Medications [Bp Med], (Reported) Patient History Healthcare decision maker Resuscitation status Advanced Directive on File Physical Exam Last 24 Hour Vital Signs Date Time Temp Pulse Resp B/P Pulse Ox O2 Delivery O2 Flow Rate FiO2 08/17/16 12:23 73 162/84 08/17/16 12:09 98.1 73 20 162/84 94 Room Air 08/17/16 09:00 80 161/76 08/17/16 08:21 182/100 08/17/16 08:17 98.3 80 18 182/100 96 Nasal Cannula 2.0 08/17/16 08:00 80 18 176/96 98 Nasal Cannula 2.0 08/17/16 07:55 77 18 170/104 98 Nasal Cannula 2.0 08/17/16 07:50 78 18 182/96 98 Nasal Cannula 2.0 08/17/16 07:49 182/96 08/17/16 04:00 98.3 89 18 133/76 98 Room Air 08/17/16 00:20 98.5 08/17/16 00:10 99.7 100 20 150/85 97 Room Air 08/17/16 00:00 100 08/16/16 20:00 72 08/16/16 20:00 97.9 84 22 145/87 96 Room Air 08/16/16 16:00 81 08/16/16 16:00 97.8 76 19 124/74 97 Room Air Intake and Output 08/16/16 08/17/16 19:00 07:00 Intake Total 390 ml 260 ml Output Total 210 ml 1500 ml Balance 180 ml -1240 ml Intake Oral 240 ml 260 ml IV Total 150 ml Output Urine Total 210 ml 1500 ml # Voids 1 Laboratory Tests Test 08/16/16 19:20 08/16/16 21:25 08/17/16 05:15 08/17/16 08:15 Urine Color Yellow Urine Appearance Clear Urine pH 6.5 (4.5-8.0) Urine Specific [place] 1.010 (1.005-1.035) Urine Protein 4+ (NEGATIVE) H Urine Glucose (UA) 3+ (NEGATIVE) H Urine Ketones Negative (NEGATIVE) Urine Occult Blood 3+ (NEGATIVE) H Urine Nitrite Negative (NEGATIVE) Urine Bilirubin Negative (NEGATIVE) Urine Urobilinogen Normal MG/DL (0.0-1.0) Urine Leukocyte Esterase Negative (NEGATIVE) Urine RBC 2-4 /HPF (0 - 0) H Urine WBC 0-2 /HPF (0 - 0) Urine Squamous Epithelial Cells None /LPF (NONE/OCC) Urine Bacteria Few /HPF (NONE) Urine Eosinophils None seen Urine Osmolality Pending Urine Random Sodium 48 mmol/L Urine Random Chloride 45 mmol/L Urine Potassium Timed 45 mmol/L Sodium Level 143 mEQ/L (135-145) 138 mEQ/L (135-145) Potassium Level 4.2 mEQ/L (3.4-4.9) 4.1 mEQ/L (3.4-4.9) Chloride Level 103 mEQ/L (98-107) 99 mEQ/L (98-107) Carbon Dioxide Level 25 mEQ/L (20-30) 23 mEQ/L (20-30) Anion Gap 15 (5-15) 16 (5-15) H Blood Urea Nitrogen 39 mg/dL (7-23) H 37 mg/dL (7-23) H Creatinine 3.8 mg/dL (0.7-1.2) H 3.5 mg/dL (0.7-1.2) H Estimat Glomerular Filtration Rate 16.3 mL/min (>60) 17.9 mL/min (>60) Glucose Level 35 mg/dL (74-106) #*L 85 mg/dL (74-106) Uric Acid 7.8 mg/dL (3.0-7.5) H 7.4 mg/dL (3.0-7.5) Calcium Level 7.7 mg/dL (8.6-10.2) L 7.6 mg/dL (8.6-10.2) L Phosphorus Level 4.1 mg/dL (2.5-4.8) Magnesium Level 1.4 mg/dL (1.7-2.5) L 1.4 mg/dL (1.7-2.5) L Total Bilirubin < 0.2 mg/dL (0.0-1.2) < 0.2 mg/dL (0.0-1.2) Aspartate Amino Transf (AST/SGOT) 54 U/L (5-40) H 57 U/L (5-40) H Alanine Aminotransferase (ALT/SGPT) 28 U/L (3-41) 28 U/L (3-41) Alkaline Phosphatase 76 U/L (40-129) 76 U/L (40-129) Total Creatine Kinase 1085 U/L (38-174) H 1096 U/L (38-174) H Troponin I < 0.30 ng/mL (<=0.30) < 0.30 ng/mL (<=0.30) Total Protein 5.0 g/dL (6.6-8.7) L 5.0 g/dL (6.6-8.7) L Albumin 2.3 g/dL (3.5-5.2) L 2.2 g/dL (3.5-5.2) L Globulin 2.7 g/dL 2.8 g/dL Albumin/Globulin Ratio 0.8 (1.0-2.7) L 0.7 (1.0-2.7) L Thyroid Stimulating Hormone (TSH) 2.230 uIU/mL (0.300-4.500) Free Thyroxine 0.83 ng/dL (0.86-1.85) L Free Triiodothyronine 1.1 pg/mL (2.3-4.2) L White Blood Count 7.0 K/UL (4.8-10.8) Red Blood Count 3.43 M/UL (4.70-6.10) L Hemoglobin 9.3 G/DL (14.2-18.0) L Hematocrit 29.0 % (42.0-52.0) L Mean Corpuscular Volume 84 FL (80-99) Mean Corpuscular Hemoglobin 27.0 PG (27.0-31.0) Mean Corpuscular Hemoglobin Concent 32.0 G/DL (32.0-36.0) Red Cell Distribution Width 13.2 % (11.6-14.8) Platelet Count 100 K/UL (150-450) L Mean Platelet Volume 11.4 FL (6.5-10.1) H Neutrophils (%) (Auto) % (45.0-75.0) Lymphocytes (%) (Auto) % (20.0-45.0) Monocytes (%) (Auto) % (1.0-10.0) Eosinophils (%) (Auto) % (0.0-3.0) Basophils (%) (Auto) % (0.0-2.0) Differential Total Cells Counted 100 Neutrophils % (Manual) 97 % (45-75) H Lymphocytes % (Manual) 2 % (20-45) L Monocytes % (Manual) 1 % (1-10) Eosinophils % (Manual) 0 % (0-3) Basophils % (Manual) 0 % (0-2) Band Neutrophils 0 % (0-8) Platelet Estimate Decreased L Platelet Morphology Normal Hypochromasia 1+ Erythrocyte Sedimentation Rate 115 MM/HR (0-20) H Hemoglobin A1c 8.4 % (< 6.0) H Ferritin 119 ng/mL (10-230) Gamma Glutamyl Transpeptidase 46 U/L (8-61) C-Reactive Protein, Quantitative 3.8 mg/dL (< 0.5) H Pro-B-Type Natriuretic Peptide 93522 pg/mL (0-125) H Triglycerides Level 84 mg/dL (< 150) Cholesterol Level 175 mg/dL (< 200) LDL Cholesterol 81 mg/dL (60-99) HDL Cholesterol 77 mg/dL (> 60) H Cholesterol/HDL Ratio 2.3 (3.3-4.4) L Vitamin B12 Level > 2000 pg/mL (211-946) H Folate Pending Iron Level 13 ug/dL (59-158) L Total Iron Binding Capacity 182 ug/dL (250-400) L Percent Iron Saturation 7 % (15-50) L Unsaturated Iron Binding 169 ug/dL (112-346) Height (Feet): 5 Height (Inches): 7.00 Weight (Pounds): 180 Medications Current Medications Medications (Trade) Dose Ordered Sig/Laquita Route PRN Reason Start Time Stop Time Status Last Admin Dose Admin Acetaminophen/ Hydrocodone Bitart ([place] 5/325) 1 tab Q4H PRN ORAL Moderate Pain (Pain Scale 4-6) 08/17/16 01:45 08/24/16 01:44 Amlodipine Besylate (Norvasc) 10 mg DAILY ORAL 08/17/16 13:00 09/16/16 12:59 08/17/16 12:23 Aspirin (ASA) 81 mg DAILY ORAL 08/17/16 09:00 09/16/16 08:59 08/17/16 08:21 Clonidine HCl (Catapres) 0.1 mg Q4H PRN ORAL bp over 160 syst 08/17/16 11:45 09/16/16 11:44 Dextrose (Dextrose 50%) STAT PRN IV Hypoglycemia 08/17/16 14:00 09/16/16 13:59 Docusate Sodium (Colace) 100 mg THREE TIMES A DAY ORAL 08/17/16 13:00 09/16/16 12:59 08/17/16 12:23 Guaifenesin/ Dextromethorphan (Robitussin DM Syrup) 10 ml Q4H PRN ORAL For Cough 08/17/16 13:15 09/16/16 13:14 Heparin Sodium (Porcine) (Heparin 5000 units/ml) 5,000 units EVERY 8 HOURS SUBQ 08/17/16 06:00 09/16/16 05:59 Hydromorphone HCl (Dilaudid) 1 mg Q4H PRN IVP Severe Pain (Pain Scale 7-10) 08/17/16 05:15 08/24/16 05:14 08/17/16 12:25 Insulin Aspart (NovoLOG) BEFORE MEALS AND HS SUBQ 08/17/16 06:30 09/16/16 06:29 Insulin Detemir (Levemir) 20 units DAILY SUBQ 08/17/16 09:00 09/16/16 08:59 Levofloxacin (Levaquin) 100 ml @ 100 mls/hr Q24H IVPB 08/17/16 09:00 08/24/16 08:59 08/17/16 08:19 Nitroglycerin (Ntg) 0.4 mg Q5M PRN SL Prn Chest Pain 08/17/16 01:30 09/16/16 01:29 08/17/16 07:49 Ondansetron HCl (Zofran) 4 mg Q6H PRN IVP Nausea & Vomiting 08/17/16 05:15 09/16/16 05:14 Tamsulosin HCl (Flomax) 0.4 mg BEDTIME ORAL 08/17/16 21:00 09/16/16 20:59 Assessment/Plan Assessment/Plan ASSESSMENT PLAN OF CARE Victor Manuel ([facility])Stacey NP Aug 17, 2016 15:39
--- NOTE | 2016-08-17 17:22 | Internal Med Progress Note ---
Subjective Date of Service: Aug 17, 2016 Physician Name Marcus Gil Attending Physician Renard Frances MD Current Medications Medications (Trade) Dose Ordered Sig/Laquita Route PRN Reason Start Time Stop Time Status Last Admin Dose Admin Acetaminophen/ Hydrocodone Bitart ([place] 5/325) 1 tab Q4H PRN ORAL Moderate Pain (Pain Scale 4-6) 08/17/16 01:45 08/24/16 01:44 Amlodipine Besylate (Norvasc) 10 mg DAILY ORAL 08/17/16 13:00 09/16/16 12:59 08/17/16 12:23 Aspirin (ASA) 81 mg DAILY ORAL 08/17/16 09:00 09/16/16 08:59 08/17/16 08:21 Clonidine HCl (Catapres) 0.1 mg Q4H PRN ORAL bp over 160 syst 08/17/16 11:45 09/16/16 11:44 08/17/16 15:50 Dextrose (Dextrose 50%) STAT PRN IV Hypoglycemia 08/17/16 14:00 09/16/16 13:59 Docusate Sodium (Colace) 100 mg THREE TIMES A DAY ORAL 08/17/16 13:00 09/16/16 12:59 08/17/16 12:23 Guaifenesin/ Dextromethorphan (Robitussin DM Syrup) 10 ml Q4H PRN ORAL For Cough 08/17/16 13:15 09/16/16 13:14 Heparin Sodium (Porcine) (Heparin 5000 units/ml) 5,000 units EVERY 8 HOURS SUBQ 08/17/16 06:00 09/16/16 05:59 Hydromorphone HCl (Dilaudid) 1 mg Q4H PRN IVP Severe Pain (Pain Scale 7-10) 08/17/16 05:15 08/24/16 05:14 08/17/16 17:12 Insulin Aspart (NovoLOG) BEFORE MEALS AND HS SUBQ 08/17/16 06:30 09/16/16 06:29 08/17/16 16:26 Insulin Detemir (Levemir) 20 units DAILY SUBQ 08/17/16 09:00 09/16/16 08:59 Levofloxacin (Levaquin) 100 ml @ 100 mls/hr Q24H IVPB 08/17/16 09:00 08/24/16 08:59 08/17/16 08:19 Nitroglycerin (Ntg) 0.4 mg Q5M PRN SL Prn Chest Pain 08/17/16 01:30 09/16/16 01:29 08/17/16 07:49 Ondansetron HCl (Zofran) 4 mg Q6H PRN IVP Nausea & Vomiting 08/17/16 05:15 09/16/16 05:14 Tamsulosin HCl (Flomax) 0.4 mg BEDTIME ORAL 08/17/16 21:00 09/16/16 20:59 Allergies: Coded Allergies: No Known Allergies (Unverified , 08/16/16) ROS Limited/Unobtainable: No Constitutional: Reports: no symptoms HEENT: Reports: no symptoms Cardiovascular: Reports: no symptoms Respiratory: Reports: cough, shortness of breath Gastrointestinal/Abdominal: Reports: no symptoms Genitourinary: Reports: no symptoms Neurologic/Psychiatric: Reports: no symptoms Subjective 61 YO M admitted with cough and Chest pain. Cover for [facility] [place] - Dr Frances. Objective Last Vital Signs Date Time Temp Pulse Resp B/P Pulse Ox O2 Delivery O2 Flow Rate FiO2 08/17/16 17:00 98.2 74 16 130/74 94 Room Air 08/17/16 08:17 2.0 General Appearance: WD/WN, no apparent distress, alert EENT: PERRL/EOMI, normal ENT inspection Neck: non-tender, normal alignment, supple, normal inspection Cardiovascular: normal peripheral pulses, normal rate, regular rhythm, no gallop/murmur, no JVD Respiratory/Chest: chest wall non-tender, respiratory distress, crackles/rales , rhonchi - bilaterally, expiratory wheezing Abdomen: normal bowel sounds, non tender, soft, no organomegaly, no mass Extremities: normal range of motion Neurologic: enrollment consultant II-XII grossly normal, no motor/sensory deficits Skin: normal pigmentation, warm/dry Laboratory Tests Test 08/16/16 19:20 08/16/16 21:25 08/17/16 05:15 08/17/16 08:15 Urine Color Yellow Urine Appearance Clear Urine pH 6.5 (4.5-8.0) Urine Specific Adolph[place] 1.010 (1.005-1.035) Urine Protein 4+ (NEGATIVE) H Urine Glucose (UA) 3+ (NEGATIVE) H Urine Ketones Negative (NEGATIVE) Urine Occult Blood 3+ (NEGATIVE) H Urine Nitrite Negative (NEGATIVE) Urine Bilirubin Negative (NEGATIVE) Urine Urobilinogen Normal MG/DL (0.0-1.0) Urine Leukocyte Esterase Negative (NEGATIVE) Urine RBC 2-4 /HPF (0 - 0) H Urine WBC 0-2 /HPF (0 - 0) Urine Squamous Epithelial Cells None /LPF (NONE/OCC) Urine Bacteria Few /HPF (NONE) Urine Eosinophils None seen Urine Osmolality Pending Urine Random Sodium 48 mmol/L Urine Random Chloride 45 mmol/L Urine Potassium Timed 45 mmol/L Sodium Level 143 mEQ/L (135-145) 138 mEQ/L (135-145) Potassium Level 4.2 mEQ/L (3.4-4.9) 4.1 mEQ/L (3.4-4.9) Chloride Level 103 mEQ/L (98-107) 99 mEQ/L (98-107) Carbon Dioxide Level 25 mEQ/L (20-30) 23 mEQ/L (20-30) Anion Gap 15 (5-15) 16 (5-15) H Blood Urea Nitrogen 39 mg/dL (7-23) H 37 mg/dL (7-23) H Creatinine 3.8 mg/dL (0.7-1.2) H 3.5 mg/dL (0.7-1.2) H Estimat Glomerular Filtration Rate 16.3 mL/min (>60) 17.9 mL/min (>60) Glucose Level 35 mg/dL (74-106) #*L 85 mg/dL (74-106) Uric Acid 7.8 mg/dL (3.0-7.5) H 7.4 mg/dL (3.0-7.5) Calcium Level 7.7 mg/dL (8.6-10.2) L 7.6 mg/dL (8.6-10.2) L Phosphorus Level 4.1 mg/dL (2.5-4.8) Magnesium Level 1.4 mg/dL (1.7-2.5) L 1.4 mg/dL (1.7-2.5) L Total Bilirubin < 0.2 mg/dL (0.0-1.2) < 0.2 mg/dL (0.0-1.2) Aspartate Amino Transf (AST/SGOT) 54 U/L (5-40) H 57 U/L (5-40) H Alanine Aminotransferase (ALT/SGPT) 28 U/L (3-41) 28 U/L (3-41) Alkaline Phosphatase 76 U/L (40-129) 76 U/L (40-129) Total Creatine Kinase 1085 U/L (38-174) H 1096 U/L (38-174) H Troponin I < 0.30 ng/mL (<=0.30) < 0.30 ng/mL (<=0.30) Total Protein 5.0 g/dL (6.6-8.7) L 5.0 g/dL (6.6-8.7) L Albumin 2.3 g/dL (3.5-5.2) L 2.2 g/dL (3.5-5.2) L Globulin 2.7 g/dL 2.8 g/dL Albumin/Globulin Ratio 0.8 (1.0-2.7) L 0.7 (1.0-2.7) L Thyroid Stimulating Hormone (TSH) 2.230 uIU/mL (0.300-4.500) Free Thyroxine 0.83 ng/dL (0.86-1.85) L Free Triiodothyronine 1.1 pg/mL (2.3-4.2) L White Blood Count 7.0 K/UL (4.8-10.8) Red Blood Count 3.43 M/UL (4.70-6.10) L Hemoglobin 9.3 G/DL (14.2-18.0) L Hematocrit 29.0 % (42.0-52.0) L Mean Corpuscular Volume 84 FL (80-99) Mean Corpuscular Hemoglobin 27.0 PG (27.0-31.0) Mean Corpuscular Hemoglobin Concent 32.0 G/DL (32.0-36.0) Red Cell Distribution Width 13.2 % (11.6-14.8) Platelet Count 100 K/UL (150-450) L Mean Platelet Volume 11.4 FL (6.5-10.1) H Neutrophils (%) (Auto) % (45.0-75.0) Lymphocytes (%) (Auto) % (20.0-45.0) Monocytes (%) (Auto) % (1.0-10.0) Eosinophils (%) (Auto) % (0.0-3.0) Basophils (%) (Auto) % (0.0-2.0) Differential Total Cells Counted 100 Neutrophils % (Manual) 97 % (45-75) H Lymphocytes % (Manual) 2 % (20-45) L Monocytes % (Manual) 1 % (1-10) Eosinophils % (Manual) 0 % (0-3) Basophils % (Manual) 0 % (0-2) Band Neutrophils 0 % (0-8) Platelet Estimate Decreased L Platelet Morphology Normal Hypochromasia 1+ Erythrocyte Sedimentation Rate 115 MM/HR (0-20) H Hemoglobin A1c 8.4 % (< 6.0) H Ferritin 119 ng/mL (10-230) Gamma Glutamyl Transpeptidase 46 U/L (8-61) C-Reactive Protein, Quantitative 3.8 mg/dL (< 0.5) H Pro-B-Type Natriuretic Peptide 84119 pg/mL (0-125) H Triglycerides Level 84 mg/dL (< 150) Cholesterol Level 175 mg/dL (< 200) LDL Cholesterol 81 mg/dL (60-99) HDL Cholesterol 77 mg/dL (> 60) H Cholesterol/HDL Ratio 2.3 (3.3-4.4) L Vitamin B12 Level > 2000 pg/mL (211-946) H Folate Pending Iron Level 13 ug/dL (59-158) L Total Iron Binding Capacity 182 ug/dL (250-400) L Percent Iron Saturation 7 % (15-50) L Unsaturated Iron Binding 169 ug/dL (112-346) Intake and Output 08/16/16 08/17/16 19:00 07:00 Intake Total 390 ml 260 ml Output Total 210 ml 1500 ml Balance 180 ml -1240 ml Intake Oral 240 ml 260 ml IV Total 150 ml Output Urine Total 210 ml 1500 ml # Voids 1 Assessment/Plan Problem List: (1) Cough (2) Chest pain, pleuritic Assessment & Plan: see cardiology note. (3) Diabetes mellitus (4) HTN (hypertension) (5) Renal failure (6) Pleural effusion Assessment & Plan: See pulmonary note. (7) Pneumonia Assessment & Plan: Cont levaquin Status: not improved MARCUS GIL Aug 17, 2016 17:22
--- NOTE | 2016-08-17 17:26 | Cardiology Report ---
APPROVED REPORT EXAM: Two-dimensional and M-mode echocardiogram with Doppler and color Doppler. INDICATION Congestive Heart Failure M-Mode DIMENSIONS IVSd1.0 (0.7-1.1cm)Left Atrium (MM)3.4 (1.6-4.0cm) LVDd4.9 (3.5-5.6cm)Aortic Root3.5 (2.0-3.7cm) PWd1.1 (0.7-1.1cm)Aortic Cusp Exc.2.0 (1.5-2.0cm) LVDs3.9 (2.5-4.0cm) PWs1.9 cm Normal left ventricular chamber size, systolic function and wall motion. Left ventricular ejection fraction estimated to be 50-55 %. No evidence of ventricular hypertrophy. Possible small pericardial effusion Mild left atrial enlargement. Mild right ventricular enlargement. Right atrial chamber size is within normal limits. Mild focal aortic valve sclerosis with adequate cusp excursion. Mildly thickened mitral valve leaflets with normal excursion. Mild mitral annulus and aortic root calcification. Pulmonic valve not well visualized. Normal tricuspid valve structure. IVC dilated at 1.6 cm with physiologic collapse. A color flow and spectral Doppler study was performed and revealed: Mild aortic regurgitation. Severe mitral regurgitation. Mitral diastolic velocities suggest reduced left ventricular relaxation (Grade I). Trace tricuspid regurgitation. Tricuspid systolic velocities suggests peak right ventricular systolic pressure of 10 mmHg. Trace pulmonic regurgitation present.
[2016-08-17] MEDS ORDERED: Tamsulosin 0.4mg cap ORAL SCH (21:00)
--- NOTE | 2016-08-17 23:54 | Cardiology Progress Note ---
Assessment/Plan Assessment/Plan The patient is seen and examined, full consult note is dictated. Objective Last 24 Hour Vital Signs Date Time Temp Pulse Resp B/P Pulse Ox O2 Delivery O2 Flow Rate FiO2 08/17/16 20:00 98.1 68 20 117/68 93 Room Air 08/17/16 17:00 98.2 74 16 130/74 94 Room Air 08/17/16 16:00 98.2 75 18 166/80 94 Room Air 08/17/16 15:50 166/80 08/17/16 12:23 73 162/84 08/17/16 12:09 98.1 73 20 162/84 94 Room Air 08/17/16 09:00 80 161/76 08/17/16 08:21 182/100 08/17/16 08:17 98.3 80 18 182/100 96 Nasal Cannula 2.0 08/17/16 08:00 80 18 176/96 98 Nasal Cannula 2.0 08/17/16 07:55 77 18 170/104 98 Nasal Cannula 2.0 08/17/16 07:50 78 18 182/96 98 Nasal Cannula 2.0 08/17/16 07:49 182/96 08/17/16 04:00 98.3 89 18 133/76 98 Room Air 08/17/16 00:20 98.5 08/17/16 00:10 99.7 100 20 150/85 97 Room Air 08/17/16 00:00 100 Intake and Output 08/16/16 08/17/16 19:00 07:00 Intake Total 390 ml 260 ml Output Total 210 ml 1500 ml Balance 180 ml -1240 ml Intake Oral 240 ml 260 ml IV Total 150 ml Output Urine Total 210 ml 1500 ml # Voids 1 Laboratory Tests Test 08/17/16 05:15 08/17/16 08:15 08/17/16 17:00 White Blood Count 7.0 K/UL (4.8-10.8) Red Blood Count 3.43 M/UL (4.70-6.10) L Hemoglobin 9.3 G/DL (14.2-18.0) L Hematocrit 29.0 % (42.0-52.0) L Mean Corpuscular Volume 84 FL (80-99) Mean Corpuscular Hemoglobin 27.0 PG (27.0-31.0) Mean Corpuscular Hemoglobin Concent 32.0 G/DL (32.0-36.0) Red Cell Distribution Width 13.2 % (11.6-14.8) Platelet Count 100 K/UL (150-450) L Mean Platelet Volume 11.4 FL (6.5-10.1) H Neutrophils (%) (Auto) % (45.0-75.0) Lymphocytes (%) (Auto) % (20.0-45.0) Monocytes (%) (Auto) % (1.0-10.0) Eosinophils (%) (Auto) % (0.0-3.0) Basophils (%) (Auto) % (0.0-2.0) Differential Total Cells Counted 100 Neutrophils % (Manual) 97 % (45-75) H Lymphocytes % (Manual) 2 % (20-45) L Monocytes % (Manual) 1 % (1-10) Eosinophils % (Manual) 0 % (0-3) Basophils % (Manual) 0 % (0-2) Band Neutrophils 0 % (0-8) Platelet Estimate Decreased L Platelet Morphology Normal Hypochromasia 1+ Erythrocyte Sedimentation Rate 115 MM/HR (0-20) H Sodium Level 138 mEQ/L (135-145) Potassium Level 4.1 mEQ/L (3.4-4.9) Chloride Level 99 mEQ/L (98-107) Carbon Dioxide Level 23 mEQ/L (20-30) Anion Gap 16 (5-15) H Blood Urea Nitrogen 37 mg/dL (7-23) H Creatinine 3.5 mg/dL (0.7-1.2) H Estimat Glomerular Filtration Rate 17.9 mL/min (>60) Glucose Level 85 mg/dL (74-106) Hemoglobin A1c 8.4 % (< 6.0) H Uric Acid 7.4 mg/dL (3.0-7.5) Calcium Level 7.6 mg/dL (8.6-10.2) L Magnesium Level 1.4 mg/dL (1.7-2.5) L Ferritin 119 ng/mL (10-230) Total Bilirubin < 0.2 mg/dL (0.0-1.2) Gamma Glutamyl Transpeptidase 46 U/L (8-61) Aspartate Amino Transf (AST/SGOT) 57 U/L (5-40) H Alanine Aminotransferase (ALT/SGPT) 28 U/L (3-41) Alkaline Phosphatase 76 U/L (40-129) Total Creatine Kinase 1096 U/L (38-174) H Troponin I < 0.30 ng/mL (<=0.30) C-Reactive Protein, Quantitative 3.8 mg/dL (< 0.5) H Pro-B-Type Natriuretic Peptide 23812 pg/mL (0-125) H Total Protein 5.0 g/dL (6.6-8.7) L Albumin 2.2 g/dL (3.5-5.2) L Globulin 2.8 g/dL Albumin/Globulin Ratio 0.7 (1.0-2.7) L Triglycerides Level 84 mg/dL (< 150) Cholesterol Level 175 mg/dL (< 200) LDL Cholesterol 81 mg/dL (60-99) HDL Cholesterol 77 mg/dL (> 60) H Cholesterol/HDL Ratio 2.3 (3.3-4.4) L Vitamin B12 Level > 2000 pg/mL (211-946) H Folate Pending Iron Level 13 ug/dL (59-158) L Total Iron Binding Capacity 182 ug/dL (250-400) L Percent Iron Saturation 7 % (15-50) L Unsaturated Iron Binding 169 ug/dL (112-346) Urine Random Sodium 47 mmol/L ESTER SEVILLA Aug 17, 2016 23:54
[2016-08-18] VITALS: BP 118/62
[2016-08-18 04:00] VITALS: BP 103/57
[2016-08-18] MEDS: HYDROmorphone 1mg/ml Carpuject IVP PRN ×5 (05:10→21:46)
[2016-08-18] MEDS: Heparin 5000 units/ml inj SUBQ SCH ×3 (06:00→21:23)
[2016-08-18] MEDS: NovoLOG Insulin Flexpen SUBQ SCH ×4 (06:01→20:58)
[2016-08-18] MEDS: Guaifenesin/DM 10ml syrup ORAL PRN (06:04)
[2016-08-18 06:22] LABS: MEAN CORPUSCULAR HEMOGLOBIN 27.1 PG (27.0-31.0); MEAN CORPUSCULAR HGB CONC 32.1 G/DL (32.0-36.0); MEAN CORPUSCULAR VOLUME 85 FL (80-99); MEAN PLATELET VOLUME 9.7 FL (6.5-10.1); PLATELET COUNT 96 K/UL (150-450); RED BLOOD COUNT 3.12 M/UL (4.70-6.10); RED CELL DISTRIBUTION WIDTH 13.4 % (11.6-14.8); WHITE BLOOD COUNT 3.6 K/UL (4.8-10.8)
[2016-08-18 06:47] LABS: ALANINE AMINOTRANSFERASE 23 U/L (3-41); ALBUMIN/GLOBULIN RATIO 0.7 (1.0-2.7); ANION GAP 14 (5-15); ASPARTATE AMINO TRANSFERASE 54 U/L (5-40); CALCIUM 7.6 mg/dL (8.6-10.2); CARBON DIOXIDE 24 mEQ/L (20-30); CHLORIDE 98 mEQ/L (98-107); CREATININE 3.5 mg/dL (0.7-1.2); CRP QUANT 2.9 mg/dL (< 0.5); GLOMERULAR FILTRATION RATE 17.9 mL/min (>60); HEMOLYSIS 4; MAGNESIUM 1.8 mg/dL (1.7-2.5); PHOSPHORUS 4.2 mg/dL (2.5-4.8); POTASSIUM 3.8 mEQ/L (3.4-4.9); SODIUM 136 mEQ/L (135-145); TOTAL PROTEIN 4.3 g/dL (6.6-8.7)
[2016-08-18 08:00] VITALS: BP 153/60
[2016-08-18 08:24] LABS: ANISOCYTOSIS 1+; BAND NEUTROPHILS % (MANUAL) 0 % (0-8); BASOPHILS % (MANUAL) 1 % (0-2); EOSINOPHILS % (MANUAL) 0 % (0-3); HYPOCHROMASIA 2+; LYMPHOCYTES % (MANUAL) 6 % (20-45); NEUTROPHILS % (MANUAL) 88 % (45-75); PLATELET ESTIMATE DECREASED; PLATELET MORPHOLOGY NORMAL; TOTAL CELLS COUNTED 100
[2016-08-18] MEDS ORDERED: Aspirin Baby 81mg ORAL SCH (09:00)
[2016-08-18] MEDS: Docusate 100mg cap ORAL SCH ×3 (09:34→18:27)
[2016-08-18] MEDS: Aspirin Baby 81mg ORAL SCH (09:34)
[2016-08-18] MEDS: Levemir Flexpen SUBQ SCH (09:46)
--- NOTE | 2016-08-18 11:00 | Diagnostic Imaging Report ---
Indication: Dyspnea Comparison: 08/16/16 A single view chest radiograph was obtained. Findings: The basilar interstitium is prominent. Heart is enlarged. The bones are osteopenic. Impression: Increasing basilar interstitial disease nonspecific. Interstitial edema and/or pneumonitis suspected.
--- NOTE | 2016-08-18 11:02 | General Progress Note ---
Assessment/Plan Status: unchanged Status Narrative Cr 3.5 Assessment/Plan Status: CKD due to Diabetic Nephropathy- DM , with episodic hypoglycemia Anemia Pneumonia / pleural effusion / right ninth rib fracture HTN OOC TR plan: Urine studies- 24 H urine protein and CrCl Avoid Nephrotoxics- Kidney FREDDY- pending BP control Flomax increase BID start EPO Subjective ROS Limited/Unobtainable: No Constitutional: Reports: malaise Respiratory: Reports: cough Allergies: Coded Allergies: No Known Allergies (Unverified , 08/16/16) Objective Last 24 Hour Vital Signs Date Time Temp Pulse Resp B/P Pulse Ox O2 Delivery O2 Flow Rate FiO2 08/18/16 09:34 88 153/60 08/18/16 08:00 97.9 88 19 153/60 91 Room Air 08/18/16 04:00 98.1 81 20 103/57 96 Room Air 08/18/16 00:00 98.6 70 22 118/62 96 Room Air 08/17/16 20:00 98.1 68 20 117/68 93 Room Air 08/17/16 17:00 98.2 74 16 130/74 94 Room Air 08/17/16 16:00 98.2 75 18 166/80 94 Room Air 08/17/16 15:50 166/80 08/17/16 12:23 73 162/84 08/17/16 12:09 98.1 73 20 162/84 94 Room Air Intake and Output 08/17/16 08/18/16 19:00 07:00 Intake Total 900 ml 600 ml Output Total 1400 ml Balance 900 ml -800 ml Intake Oral 600 ml 600 ml IV Total 300 ml Output Urine Total 1400 ml Laboratory Tests 08/17/16 17:00: Urine Random Sodium 47 08/18/16 03:45: Urine Eosinophils None seen 08/18/16 05:27: White Blood Count 3.6L, Red Blood Count 3.12L, Hemoglobin 8.5L, Hematocrit 26.4L , Mean Corpuscular Volume 85, Mean Corpuscular Hemoglobin 27.1, Mean Corpuscular Hemoglobin Concent 32.1, Red Cell Distribution Width 13.4, Platelet Count 96L, Mean Platelet Volume 9.7, Neutrophils (%) (Auto) , Lymphocytes (%) ( Auto) , Monocytes (%) (Auto) , Eosinophils (%) (Auto) , Basophils (%) (Auto) , Differential Total Cells Counted 100, Neutrophils % (Manual) 88H, Lymphocytes % (Manual) 6L, Monocytes % (Manual) 5, Eosinophils % (Manual) 0, Basophils % ( Manual) 1, Band Neutrophils 0, Platelet Estimate DecreasedL, Platelet Morphology Normal, Hypochromasia 2+, Anisocytosis 1+, Sodium Level 136, Potassium Level 3.8, Chloride Level 98, Carbon Dioxide Level 24, Anion Gap 14, Blood Urea Nitrogen 40H, Creatinine 3.5H, Estimat Glomerular Filtration Rate 17.9, Glucose Level 129H, Uric Acid 8.0H, Calcium Level 7.6L, Phosphorus Level 4.2, Magnesium Level 1.8, Total Bilirubin < 0.2, Aspartate Amino Transf (AST/ SGOT) 54H, Alanine Aminotransferase (ALT/SGPT) 23, Alkaline Phosphatase 67, C- Reactive Protein, Quantitative 2.9H, Pro-B-Type Natriuretic Peptide 01347Z, Total Protein 4.3L, Albumin 1.8L, Globulin 2.5, Albumin/Globulin Ratio 0.7L Height (Feet): 5 Height (Inches): 7.00 Weight (Pounds): 180 General Appearance: no apparent distress Cardiovascular: normal rate Respiratory/Chest: decreased breath sounds Abdomen: soft RONALD SEVERINO Aug 18, 2016 11:02
[2016-08-18 12:00] VITALS: BP 151/92
[2016-08-18] MEDS: Tamsulosin 0.4mg cap ORAL SCH ×2 (12:25→18:28)
--- NOTE | 2016-08-18 13:03 | Pulmonology Progress Note ---
Assessment/Plan Assessment/Plan ASSESSMENT pleuritic chest pain PNA vs pneumonitis pleural effusion right ninth rib fracture DM with episode of hypoglycemia CKD 2 to diabetic nephropathy anemia of chronic ( kidney) disease severe TR hypertensive urgency PLAN OF CARE MS floor O2 HHN prn CXR today- Increasing basilar interstitial disease nonspecific. Interstitial edema and/or pneumonitis empiric abx sputum cx if able antitussive prn troponin x 3 negative, ECG no ischemic changes, pt was r/out for ACS cardio follows chest pain pleuritic in origin, likely 2 to underlying PNA as well as possibly element from not completely healed yet R ninth rib fracture initial CXR Left lateral basilar infiltrate and pleural effusion. Borderline cardiomegaly CT chest -CT chest with small bilateral pleural effusions, larger on the left on the right. The one on the left could be loculated Basilar compressive atelectasis Unusual mediastinal fluid which appears to be extrapericardial. Borderline cardiomegaly ECHO with EF of 50-55% , RVSP of10 and evidence of severe TR tachycardia resolved, likely 2 to fevers, infection continue ASA lipid panel stable BP management , nephro added CCB, continue DECLAN, monitor renal parameters, lytes avoid nephrotoxic renal US pending nephro follows per nephro CRF likely 2 to underlying diabetic nephropathy DVT prophylaxis HH trending down, started on EPO as per nephro anemia work up, transfuse prn, BS management with SS of insulin and Levemir, caution to avoid episode of hypoglycemia, HS snack case discussed and evaluated by supervising physician Subjective Allergies: Coded Allergies: No Known Allergies (Unverified , 08/16/16) Subjective on RA, no signs of respiratory distress still with chest was pain R side with deep breathing hx of not completely healed yet R ninth rib fracture wheezing,cough denies SOB,l BP elevated earlier Objective Last 24 Hour Vital Signs Date Time Temp Pulse Resp B/P Pulse Ox O2 Delivery O2 Flow Rate FiO2 08/18/16 09:34 88 153/60 08/18/16 08:00 97.9 88 19 153/60 91 Room Air 08/18/16 04:00 98.1 81 20 103/57 96 Room Air 08/18/16 00:00 98.6 70 22 118/62 96 Room Air 08/17/16 20:00 98.1 68 20 117/68 93 Room Air 08/17/16 17:00 98.2 74 16 130/74 94 Room Air 08/17/16 16:00 98.2 75 18 166/80 94 Room Air 08/17/16 15:50 166/80 Intake and Output 08/17/16 08/18/16 19:00 07:00 Intake Total 900 ml 600 ml Output Total 1400 ml Balance 900 ml -800 ml Intake Oral 600 ml 600 ml IV Total 300 ml Output Urine Total 1400 ml Objective General Appearance: no acute distress HEENT: normocephalic, atraumatic Respiratory/Chest: lungs clear - with moderate air entry , no respiratory distress, no accessory muscle use Cardiovascular: normal rate, regular rhythm, no JVD Abdomen: normal bowel sounds, soft, non tender, non distended Genitourinary: normal external genitalia Extremities: no edema Neurologic/Psychiatric: alert, responsive, normal mood/affect Microbiology Date/Time Source Procedure Growth Status 08/16/16 07:50 Blood Blood Culture - Preliminary NO GROWTH AFTER 48 HOURS Resulted 08/16/16 07:38 Blood Blood Culture - Preliminary NO GROWTH AFTER 48 HOURS Resulted 08/16/16 17:00 Nasal Nares MRSA Culture - Final NO METHICILLIN RESISTANT STAPH AUREUS... Complete Laboratory Tests 08/17/16 17:00: Urine Random Sodium 47 08/18/16 03:45: Urine Eosinophils None seen 08/18/16 05:27: White Blood Count 3.6L, Red Blood Count 3.12L, Hemoglobin 8.5L, Hematocrit 26.4L , Mean Corpuscular Volume 85, Mean Corpuscular Hemoglobin 27.1, Mean Corpuscular Hemoglobin Concent 32.1, Red Cell Distribution Width 13.4, Platelet Count 96L, Mean Platelet Volume 9.7, Neutrophils (%) (Auto) , Lymphocytes (%) ( Auto) , Monocytes (%) (Auto) , Eosinophils (%) (Auto) , Basophils (%) (Auto) , Differential Total Cells Counted 100, Neutrophils % (Manual) 88H, Lymphocytes % (Manual) 6L, Monocytes % (Manual) 5, Eosinophils % (Manual) 0, Basophils % ( Manual) 1, Band Neutrophils 0, Platelet Estimate DecreasedL, Platelet Morphology Normal, Hypochromasia 2+, Anisocytosis 1+, Sodium Level 136, Potassium Level 3.8, Chloride Level 98, Carbon Dioxide Level 24, Anion Gap 14, Blood Urea Nitrogen 40H, Creatinine 3.5H, Estimat Glomerular Filtration Rate 17.9, Glucose Level 129H, Uric Acid 8.0H, Calcium Level 7.6L, Phosphorus Level 4.2, Magnesium Level 1.8, Total Bilirubin < 0.2, Aspartate Amino Transf (AST/ SGOT) 54H, Alanine Aminotransferase (ALT/SGPT) 23, Alkaline Phosphatase 67, C- Reactive Protein, Quantitative 2.9H, Pro-B-Type Natriuretic Peptide 14540M, Total Protein 4.3L, Albumin 1.8L, Globulin 2.5, Albumin/Globulin Ratio 0.7L Current Medications Medications (Trade) Dose Ordered Sig/Laquita Route PRN Reason Start Time Stop Time Status Last Admin Dose Admin Acetaminophen/ Hydrocodone Bitart ([place] 5/325) 1 tab Q4H PRN ORAL Moderate Pain (Pain Scale 4-6) 08/17/16 01:45 08/24/16 01:44 Amlodipine Besylate (Norvasc) 10 mg DAILY ORAL 08/17/16 13:00 09/16/16 12:59 08/18/16 09:34 Aspirin (ASA) 81 mg DAILY ORAL 08/17/16 09:00 09/16/16 08:59 08/18/16 09:34 Clonidine HCl (Catapres) 0.1 mg Q4H PRN ORAL bp over 160 syst 08/17/16 11:45 09/16/16 11:44 08/17/16 15:50 Dextrose (Dextrose 50%) STAT PRN IV Hypoglycemia 08/17/16 14:00 09/16/16 13:59 Docusate Sodium (Colace) 100 mg THREE TIMES A DAY ORAL 08/17/16 13:00 09/16/16 12:59 08/18/16 12:26 Epoetin Solitario (Procrit (for non ESRD use)) 10,000 units MON-WED-SAT SUBQ 08/20/16 21:00 09/19/16 20:59 Guaifenesin/ Dextromethorphan 10 ml 10 ml Q4H PRN ORAL For Cough 08/17/16 13:15 09/16/16 13:14 08/18/16 06:04 Heparin Sodium (Porcine) (Heparin 5000 units/ml) 5,000 units EVERY 8 HOURS SUBQ 08/17/16 06:00 09/16/16 05:59 Hydromorphone HCl (Dilaudid) 1 mg Q4H PRN IVP Severe Pain (Pain Scale 7-10) 08/17/16 05:15 08/24/16 05:14 08/18/16 09:35 Insulin Aspart (NovoLOG) BEFORE MEALS AND HS SUBQ 08/17/16 06:30 09/16/16 06:29 08/18/16 12:26 Insulin Detemir (Levemir) 20 units DAILY SUBQ 08/17/16 09:00 09/16/16 08:59 08/18/16 09:46 Levofloxacin (Levaquin) 50 ml @ 50 mls/hr Q24H IVPB 08/19/16 09:00 08/26/16 08:59 Nitroglycerin (Ntg) 0.4 mg Q5M PRN SL Prn Chest Pain 08/17/16 01:30 09/16/16 01:29 08/17/16 07:49 Ondansetron HCl (Zofran) 4 mg Q6H PRN IVP Nausea & Vomiting 08/17/16 05:15 09/16/16 05:14 Tamsulosin HCl (Flomax) 0.4 mg BID ORAL 08/18/16 11:00 09/17/16 10:59 08/18/16 12:25 Stacey Rush NP ([place]) Aug 18, 2016 13:03
[2016-08-18] MEDS ORDERED: NS 275ml ONE (14:08)
[2016-08-18] MEDS ORDERED: Tubing IV Secondary IV ONE (14:08)
--- NOTE | 2016-08-18 14:17 | Internal Med Progress Note ---
Subjective Date of Service: Aug 18, 2016 Physician Name Marcus Gil Attending Physician Renard Frances MD Current Medications Medications (Trade) Dose Ordered Sig/Laquita Route PRN Reason Start Time Stop Time Status Last Admin Dose Admin Acetaminophen/ Hydrocodone Bitart ([place] 5/325) 1 tab Q4H PRN ORAL Moderate Pain (Pain Scale 4-6) 08/17/16 01:45 08/24/16 01:44 Amlodipine Besylate (Norvasc) 10 mg DAILY ORAL 08/17/16 13:00 09/16/16 12:59 08/18/16 09:34 Aspirin (ASA) 81 mg DAILY ORAL 08/17/16 09:00 09/16/16 08:59 08/18/16 09:34 Clonidine HCl (Catapres) 0.1 mg Q4H PRN ORAL bp over 160 syst 08/17/16 11:45 09/16/16 11:44 08/17/16 15:50 Dextrose (Dextrose 50%) STAT PRN IV Hypoglycemia 08/17/16 14:00 09/16/16 13:59 Docusate Sodium (Colace) 100 mg THREE TIMES A DAY ORAL 08/17/16 13:00 09/16/16 12:59 08/18/16 12:26 Epoetin Solitario (Procrit (for non ESRD use)) 10,000 units SAT-SAT-SAT SUBQ 08/20/16 21:00 09/19/16 20:59 Guaifenesin/ Dextromethorphan 10 ml 10 ml Q4H PRN ORAL For Cough 08/17/16 13:15 09/16/16 13:14 08/18/16 06:04 Heparin Sodium (Porcine) (Heparin 5000 units/ml) 5,000 units EVERY 8 HOURS SUBQ 08/17/16 06:00 09/16/16 05:59 Hydromorphone HCl (Dilaudid) 1 mg Q4H PRN IVP Severe Pain (Pain Scale 7-10) 08/17/16 05:15 08/24/16 05:14 08/18/16 13:27 Insulin Aspart (NovoLOG) BEFORE MEALS AND HS SUBQ 08/17/16 06:30 09/16/16 06:29 08/18/16 12:26 Insulin Detemir (Levemir) 20 units DAILY SUBQ 08/17/16 09:00 09/16/16 08:59 08/18/16 09:46 Levofloxacin (Levaquin) 50 ml @ 50 mls/hr Q24H IVPB 08/19/16 09:00 08/26/16 08:59 Nitroglycerin (Ntg) 0.4 mg Q5M PRN SL Prn Chest Pain 08/17/16 01:30 09/16/16 01:29 08/17/16 07:49 Ondansetron HCl (Zofran) 4 mg Q6H PRN IVP Nausea & Vomiting 08/17/16 05:15 09/16/16 05:14 Tamsulosin HCl (Flomax) 0.4 mg BID ORAL 08/18/16 11:00 09/17/16 10:59 08/18/16 12:25 Allergies: Coded Allergies: No Known Allergies (Unverified , 08/16/16) ROS Limited/Unobtainable: No Constitutional: Reports: no symptoms HEENT: Reports: no symptoms Cardiovascular: Reports: chest pain Respiratory: Reports: cough Gastrointestinal/Abdominal: Reports: no symptoms Genitourinary: Reports: no symptoms Neurologic/Psychiatric: Reports: no symptoms Subjective 61 YO M admitted with cough and Chest pain. Cover for Int [facility] - Dr Frances. Objective Last Vital Signs Date Time Temp Pulse Resp B/P Pulse Ox O2 Delivery O2 Flow Rate FiO2 08/18/16 12:00 99.1 77 20 151/92 93 Room Air 08/17/16 08:17 2.0 Laboratory Tests Test 08/17/16 17:00 08/18/16 03:45 08/18/16 05:27 Urine Random Sodium 47 mmol/L Urine Eosinophils None seen White Blood Count 3.6 K/UL (4.8-10.8) L Red Blood Count 3.12 M/UL (4.70-6.10) L Hemoglobin 8.5 G/DL (14.2-18.0) L Hematocrit 26.4 % (42.0-52.0) L Mean Corpuscular Volume 85 FL (80-99) Mean Corpuscular Hemoglobin 27.1 PG (27.0-31.0) Mean Corpuscular Hemoglobin Concent 32.1 G/DL (32.0-36.0) Red Cell Distribution Width 13.4 % (11.6-14.8) Platelet Count 96 K/UL (150-450) L Mean Platelet Volume 9.7 FL (6.5-10.1) Neutrophils (%) (Auto) % (45.0-75.0) Lymphocytes (%) (Auto) % (20.0-45.0) Monocytes (%) (Auto) % (1.0-10.0) Eosinophils (%) (Auto) % (0.0-3.0) Basophils (%) (Auto) % (0.0-2.0) Differential Total Cells Counted 100 Neutrophils % (Manual) 88 % (45-75) H Lymphocytes % (Manual) 6 % (20-45) L Monocytes % (Manual) 5 % (1-10) Eosinophils % (Manual) 0 % (0-3) Basophils % (Manual) 1 % (0-2) Band Neutrophils 0 % (0-8) Platelet Estimate Decreased L Platelet Morphology Normal Hypochromasia 2+ Anisocytosis 1+ Sodium Level 136 mEQ/L (135-145) Potassium Level 3.8 mEQ/L (3.4-4.9) Chloride Level 98 mEQ/L (98-107) Carbon Dioxide Level 24 mEQ/L (20-30) Anion Gap 14 (5-15) Blood Urea Nitrogen 40 mg/dL (7-23) H Creatinine 3.5 mg/dL (0.7-1.2) H Estimat Glomerular Filtration Rate 17.9 mL/min (>60) Glucose Level 129 mg/dL (74-106) H Uric Acid 8.0 mg/dL (3.0-7.5) H Calcium Level 7.6 mg/dL (8.6-10.2) L Phosphorus Level 4.2 mg/dL (2.5-4.8) Magnesium Level 1.8 mg/dL (1.7-2.5) Total Bilirubin < 0.2 mg/dL (0.0-1.2) Aspartate Amino Transf (AST/SGOT) 54 U/L (5-40) H Alanine Aminotransferase (ALT/SGPT) 23 U/L (3-41) Alkaline Phosphatase 67 U/L (40-129) C-Reactive Protein, Quantitative 2.9 mg/dL (< 0.5) H Pro-B-Type Natriuretic Peptide 87848 pg/mL (0-125) H Total Protein 4.3 g/dL (6.6-8.7) L Albumin 1.8 g/dL (3.5-5.2) L Globulin 2.5 g/dL Albumin/Globulin Ratio 0.7 (1.0-2.7) L Microbiology Date/Time Source Procedure Growth Status 08/16/16 07:50 Blood Blood Culture - Preliminary NO GROWTH AFTER 48 HOURS Resulted 08/16/16 07:38 Blood Blood Culture - Preliminary NO GROWTH AFTER 48 HOURS Resulted 08/16/16 17:00 Nasal Nares MRSA Culture - Final NO METHICILLIN RESISTANT STAPH AUREUS... Complete Intake and Output 08/17/16 08/18/16 19:00 07:00 Intake Total 900 ml 600 ml Output Total 1400 ml Balance 900 ml -800 ml Intake Oral 600 ml 600 ml IV Total 300 ml Output Urine Total 1400 ml Objective General Appearance: WD/WN, no apparent distress, alert EENT: PERRL/EOMI, normal ENT inspection Neck: non-tender, normal alignment, supple, normal inspection Cardiovascular: normal peripheral pulses, normal rate, regular rhythm, no gallop/murmur, no JVD Respiratory/Chest: chest wall non-tender, respiratory distress, crackles/rales , rhonchi - bilaterally, expiratory wheezing Abdomen: normal bowel sounds, non tender, soft, no organomegaly, no mass Extremities: normal range of motion 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 (3) Diabetes mellitus (4) HTN (hypertension) (5) Renal failure Assessment & Plan: See nephrology note. (6) Pleural effusion Assessment & Plan: See pulmonary note. (7) Pneumonia Assessment & Plan: Cont levaquin Status: not improved MARCUS GIL Aug 18, 2016 14:17
[2016-08-18 16:00] VITALS: BP 148/83
[2016-08-18 19:00] VITALS: BP 131/66
[2016-08-18] MEDS ORDERED: Fleet's Enema 133ml RECTAL PRN (19:15)
[2016-08-18] MEDS ORDERED: Milk of Magnesia 30ml Ud ORAL PRN (19:15)
--- NOTE | 2016-08-18 21:39 | Cardiology Progress Note ---
Assessment/Plan Assessment/Plan 1. Dyspnea, likely due to pneumonia, will review echo images 2. Pleuritic chest pain, acute myocardial infarction is ruled out. A 12-lead ECG does not show any evidence of ischemia, Echo shows normal wall motion. 3. Sinus tachycardia could be due to fever or pneumonia, resolved. 4. History of diabetes mellitus. 5. History of hypertension. 6. Severe mitral regurgitation. Subjective Subjective Sinus rhythm at 78. Objective Last 24 Hour Vital Signs Date Time Temp Pulse Resp B/P Pulse Ox O2 Delivery O2 Flow Rate FiO2 08/18/16 19:00 98.2 78 20 131/66 95 Room Air 08/18/16 18:17 98.6 08/18/16 16:00 98.6 76 20 148/83 92 Room Air 08/18/16 12:00 99.1 77 20 151/92 93 Room Air 08/18/16 09:34 88 153/60 08/18/16 08:00 97.9 88 19 153/60 91 Room Air 08/18/16 04:00 98.1 81 20 103/57 96 Room Air 08/18/16 00:00 98.6 70 22 118/62 96 Room Air Intake and Output 08/17/16 08/18/16 19:00 07:00 Intake Total 900 ml 600 ml Output Total 1400 ml Balance 900 ml -800 ml Intake Oral 600 ml 600 ml IV Total 300 ml Output Urine Total 1400 ml 2D Echo: LVEF 55%,Mild RV enlargement, LAE,Sev MR,Mild AR,RVSP 10 mmHg, Grade I LVDD Laboratory Tests Test 08/18/16 03:45 08/18/16 05:27 Urine Eosinophils None seen White Blood Count 3.6 K/UL (4.8-10.8) L Red Blood Count 3.12 M/UL (4.70-6.10) L Hemoglobin 8.5 G/DL (14.2-18.0) L Hematocrit 26.4 % (42.0-52.0) L Mean Corpuscular Volume 85 FL (80-99) Mean Corpuscular Hemoglobin 27.1 PG (27.0-31.0) Mean Corpuscular Hemoglobin Concent 32.1 G/DL (32.0-36.0) Red Cell Distribution Width 13.4 % (11.6-14.8) Platelet Count 96 K/UL (150-450) L Mean Platelet Volume 9.7 FL (6.5-10.1) Neutrophils (%) (Auto) % (45.0-75.0) Lymphocytes (%) (Auto) % (20.0-45.0) Monocytes (%) (Auto) % (1.0-10.0) Eosinophils (%) (Auto) % (0.0-3.0) Basophils (%) (Auto) % (0.0-2.0) Differential Total Cells Counted 100 Neutrophils % (Manual) 88 % (45-75) H Lymphocytes % (Manual) 6 % (20-45) L Monocytes % (Manual) 5 % (1-10) Eosinophils % (Manual) 0 % (0-3) Basophils % (Manual) 1 % (0-2) Band Neutrophils 0 % (0-8) Platelet Estimate Decreased L Platelet Morphology Normal Hypochromasia 2+ Anisocytosis 1+ Sodium Level 136 mEQ/L (135-145) Potassium Level 3.8 mEQ/L (3.4-4.9) Chloride Level 98 mEQ/L (98-107) Carbon Dioxide Level 24 mEQ/L (20-30) Anion Gap 14 (5-15) Blood Urea Nitrogen 40 mg/dL (7-23) H Creatinine 3.5 mg/dL (0.7-1.2) H Estimat Glomerular Filtration Rate 17.9 mL/min (>60) Glucose Level 129 mg/dL (74-106) H Uric Acid 8.0 mg/dL (3.0-7.5) H Calcium Level 7.6 mg/dL (8.6-10.2) L Phosphorus Level 4.2 mg/dL (2.5-4.8) Magnesium Level 1.8 mg/dL (1.7-2.5) Total Bilirubin < 0.2 mg/dL (0.0-1.2) Aspartate Amino Transf (AST/SGOT) 54 U/L (5-40) H Alanine Aminotransferase (ALT/SGPT) 23 U/L (3-41) Alkaline Phosphatase 67 U/L (40-129) C-Reactive Protein, Quantitative 2.9 mg/dL (< 0.5) H Pro-B-Type Natriuretic Peptide 98940 pg/mL (0-125) H Total Protein 4.3 g/dL (6.6-8.7) L Albumin 1.8 g/dL (3.5-5.2) L Globulin 2.5 g/dL Albumin/Globulin Ratio 0.7 (1.0-2.7) L Microbiology Date/Time Source Procedure Growth Status 08/16/16 07:50 Blood Blood Culture - Preliminary NO GROWTH AFTER 48 HOURS Resulted 08/16/16 07:38 Blood Blood Culture - Preliminary NO GROWTH AFTER 48 HOURS Resulted 08/16/16 17:00 Nasal Nares MRSA Culture - Final NO METHICILLIN RESISTANT STAPH AUREUS... Complete Objective HEENT: Atraumatic and normocephalic. Anicteric. Pupils are equal, round, and reactive to light and accommodation. Extraocular muscles intact. NECK: JVP is less than 5 cm. No carotid bruits. Carotid upstrokes 2+ bilaterally. CVS: Normal S1 and S2. Regular rate and rhythm. 2/6 HSM at LSB, no gallops or rubs. Tachycardic. PMI is at fourth intercostal space at the midclavicular line. LUNGS: Diminished breath sounds especially at both bases. There is presence of dullness, worse in the left base than the right. There are some crackles in the left base as well. No evidence of rhonchi. ABDOMEN: Soft, nontender, and nondistended. No hepatosplenomegaly. Positive bowel sounds. EXTREMITIES: No evidence of edema, clubbing, or cyanosis. ESTER SEVILLA Aug 18, 2016 21:39
[2016-08-19] VITALS: BP 148/77
[2016-08-19] MEDS: HYDROmorphone 1mg/ml Carpuject IVP PRN ×2 (01:46→08:53)
[2016-08-19 04:00] VITALS: BP 136/70
[2016-08-19] MEDS: Heparin 5000 units/ml inj SUBQ SCH ×3 (06:00→20:50)
[2016-08-19] MEDS: NovoLOG Insulin Flexpen SUBQ SCH ×4 (06:01→20:50)
[2016-08-19 07:32] LABS: MEAN CORPUSCULAR HGB CONC 32.2 G/DL (32.0-36.0); MEAN CORPUSCULAR VOLUME 84 FL (80-99); MEAN PLATELET VOLUME 9.3 FL (6.5-10.1); PLATELET COUNT 97 K/UL (150-450); RED BLOOD COUNT 3.36 M/UL (4.70-6.10); RED CELL DISTRIBUTION WIDTH 12.8 % (11.6-14.8)
[2016-08-19 07:39] LABS: ALANINE AMINOTRANSFERASE 27 U/L (3-41); ALBUMIN/GLOBULIN RATIO 0.7 (1.0-2.7); ANION GAP 14 (5-15); ASPARTATE AMINO TRANSFERASE 63 U/L (5-40); CALCIUM 7.4 mg/dL (8.6-10.2); CARBON DIOXIDE 25 mEQ/L (20-30); CHLORIDE 96 mEQ/L (98-107); CREATININE 3.6 mg/dL (0.7-1.2); GLOMERULAR FILTRATION RATE 17.3 mL/min (>60); HEMOLYSIS 1; PHOSPHORUS 3.7 mg/dL (2.5-4.8); SODIUM 135 mEQ/L (135-145); TOTAL PROTEIN 4.5 g/dL (6.6-8.7); URIC ACID 8.1 mg/dL (3.0-7.5)
[2016-08-19 07:42] LABS: WHITE BLOOD COUNT 2.1 K/UL (4.8-10.8)
[2016-08-19] MEDS: Tamsulosin 0.4mg cap ORAL SCH ×2 (08:45→17:58)
[2016-08-19] MEDS: Aspirin Baby 81mg ORAL SCH (08:45)
[2016-08-19] MEDS: Docusate 100mg cap ORAL SCH ×3 (08:46→17:23)
[2016-08-19 08:51] VITALS: BP 142/59
[2016-08-19] MEDS ORDERED: Levofloxacin 250mg/D5W 50ml IVPB SCH (09:00)
[2016-08-19 10:03] LABS: ANISOCYTOSIS 1+; BAND NEUTROPHILS % (MANUAL) 1 % (0-8); BASOPHILS % (MANUAL) 0 % (0-2); EOSINOPHILS % (MANUAL) 0 % (0-3); HYPOCHROMASIA 1+; LYMPHOCYTES % (MANUAL) 27 % (20-45); NEUTROPHILS % (MANUAL) 65 % (45-75); PLATELET ESTIMATE DECREASED; PLATELET MORPHOLOGY NORMAL; TOTAL CELLS COUNTED 100
[2016-08-19] MEDS: Levemir Flexpen SUBQ SCH (10:03)
--- NOTE | 2016-08-19 11:44 | General Progress Note ---
Assessment/Plan Status: doing well - -clinically Status Narrative Cr unchanged Assessment/Plan Status: CKD due to Diabetic Nephropathy- DM , with episodic hypoglycemia Anemia Pneumonia / pleural effusion / right ninth rib fracture HTN OOC TR plan: Urine studies- 24 H urine protein and CrCl PENDING Avoid Nephrotoxics- Kidney FREDDY- pending BP control On EPO decrease Levaquin dose Subjective ROS Limited/Unobtainable: No Constitutional: Reports: malaise Respiratory: Reports: cough Allergies: Coded Allergies: No Known Allergies (Unverified , 08/16/16) Objective Last 24 Hour Vital Signs Date Time Temp Pulse Resp B/P Pulse Ox O2 Delivery O2 Flow Rate FiO2 08/19/16 08:51 97.2 77 14 142/59 94 Room Air 08/19/16 08:46 77 142/76 08/19/16 04:00 98.4 74 20 136/70 93 Room Air 08/19/16 00:00 98.1 76 20 148/77 94 Room Air 08/18/16 19:00 98.2 78 20 131/66 95 Room Air 08/18/16 18:17 98.6 08/18/16 16:00 98.6 76 20 148/83 92 Room Air 08/18/16 12:00 99.1 77 20 151/92 93 Room Air Intake and Output 08/18/16 08/19/16 19:00 07:00 Intake Total 340 ml 320 ml Output Total 500 ml Balance 340 ml -180 ml Intake Oral 240 ml 320 ml IV Total 100 ml Output Urine Total 500 ml # Voids 1 2 Laboratory Tests 08/19/16 03:00: Urine Eosinophils None seen 08/19/16 06:40: White Blood Count 2.1*L, Red Blood Count 3.36L, Hemoglobin 9.1L, Hematocrit 28.2L, Mean Corpuscular Volume 84, Mean Corpuscular Hemoglobin 27.0, Mean Corpuscular Hemoglobin Concent 32.2, Red Cell Distribution Width 12.8, Platelet Count 97L, Mean Platelet Volume 9.3, Neutrophils (%) (Auto) , Lymphocytes (%) ( Auto) , Monocytes (%) (Auto) , Eosinophils (%) (Auto) , Basophils (%) (Auto) , Differential Total Cells Counted 100, Neutrophils % (Manual) 65, Lymphocytes % ( Manual) 27, Monocytes % (Manual) 7, Eosinophils % (Manual) 0, Basophils % ( Manual) 0, Band Neutrophils 1, Platelet Estimate DecreasedL, Platelet Morphology Normal, Hypochromasia 1+, Anisocytosis 1+, Sodium Level 135, Potassium Level 4.0, Chloride Level 96L, Carbon Dioxide Level 25, Anion Gap 14, Blood Urea Nitrogen 39H, Creatinine 3.6H, Estimat Glomerular Filtration Rate 17.3, Glucose Level 123H, Uric Acid 8.1H, Calcium Level 7.4L, Phosphorus Level 3.7, Total Bilirubin < 0.2, Aspartate Amino Transf (AST/SGOT) 63H, Alanine Aminotransferase (ALT/SGPT) 27, Alkaline Phosphatase 69, Total Protein 4.5L, Albumin 1.9L, Globulin 2.6, Albumin/Globulin Ratio 0.7L Height (Feet): 5 Height (Inches): 7.00 Weight (Pounds): 180 General Appearance: no apparent distress Cardiovascular: normal rate Respiratory/Chest: decreased breath sounds Abdomen: soft RONALD SEVERINO Aug 19, 2016 11:44
[2016-08-19 12:38] LABS: CREATININE 3.5 mg/dL (0.7-1.2); GLOMERULAR FILTRATION RATE 17.9 mL/min (>60)
[2016-08-19] MEDS: Guaifenesin/DM 10ml syrup ORAL PRN (12:38)
[2016-08-19] MEDS: Norco 5mg/325mg tab ORAL PRN ×2 (12:41→18:00)
[2016-08-19 12:48] VITALS: BP 148/88
[2016-08-19 12:55] LABS: CREATININE CLEARANCE,URINE 17 mL/min (71-151)
--- NOTE | 2016-08-19 13:31 | Internal Med Progress Note ---
Subjective Date of Service: Aug 19, 2016 Physician Name GilMarcus Attending Physician Renard Frances MD Current Medications Medications (Trade) Dose Ordered Sig/Laquita Route PRN Reason Start Time Stop Time Status Last Admin Dose Admin Acetaminophen/ Hydrocodone Bitart ([place] 5/325) 1 tab Q4H PRN ORAL Moderate Pain (Pain Scale 4-6) 08/17/16 01:45 08/24/16 01:44 08/19/16 12:41 Amlodipine Besylate (Norvasc) 10 mg DAILY ORAL 08/17/16 13:00 09/16/16 12:59 08/19/16 08:46 Aspirin (ASA) 81 mg DAILY ORAL 08/17/16 09:00 09/16/16 08:59 08/19/16 08:45 Clonidine HCl (Catapres) 0.1 mg Q4H PRN ORAL bp over 160 syst 08/17/16 11:45 09/16/16 11:44 08/17/16 15:50 Dextrose (Dextrose 50%) STAT PRN IV Hypoglycemia 08/17/16 14:00 09/16/16 13:59 Docusate Sodium 100 mg 100 mg THREE TIMES A DAY ORAL 08/19/16 13:00 09/18/16 12:59 08/19/16 12:38 Epoetin Solitario (Procrit (for non ESRD use)) 10,000 units MON-WED-SAT SUBQ 08/20/16 21:00 09/19/16 20:59 Guaifenesin/ Dextromethorphan (Robitussin DM Syrup) 10 ml Q4H PRN ORAL For Cough 08/17/16 13:15 09/16/16 13:14 08/19/16 12:38 Heparin Sodium (Porcine) (Heparin 5000 units/ml) 5,000 units EVERY 8 HOURS SUBQ 08/17/16 06:00 09/16/16 05:59 Insulin Aspart (NovoLOG) BEFORE MEALS AND HS SUBQ 08/17/16 06:30 09/16/16 06:29 08/19/16 12:40 Insulin Detemir (Levemir) 20 units DAILY SUBQ 08/17/16 09:00 09/16/16 08:59 08/19/16 10:03 Levofloxacin (Levaquin) 50 ml @ 50 mls/hr Q48H IVPB 08/21/16 09:00 08/28/16 08:59 Nitroglycerin (Ntg) 0.4 mg Q5M PRN SL Prn Chest Pain 08/17/16 01:30 09/16/16 01:29 08/17/16 07:49 Ondansetron HCl (Zofran) 4 mg Q6H PRN IVP Nausea & Vomiting 08/17/16 05:15 09/16/16 05:14 Sodium Phosphate (Fleet's Sodium Phosl Enema) 133 ml DAILYPRN PRN RECTAL constipation 08/18/16 19:15 09/17/16 19:14 Tamsulosin HCl (Flomax) 0.4 mg BID ORAL 08/18/16 11:00 09/17/16 10:59 08/19/16 08:45 Allergies: Coded Allergies: No Known Allergies (Unverified , 08/16/16) ROS Limited/Unobtainable: No Constitutional: Reports: no symptoms HEENT: Reports: no symptoms Cardiovascular: Reports: chest pain Respiratory: Reports: shortness of breath Gastrointestinal/Abdominal: Reports: no symptoms Genitourinary: Reports: no symptoms Neurologic/Psychiatric: Reports: no symptoms Subjective 61 YO M admitted with cough and Chest pain. Cover for Int [facility] - Dr Frances. Objective Last Vital Signs Date Time Temp Pulse Resp B/P Pulse Ox O2 Delivery O2 Flow Rate FiO2 08/19/16 12:48 97.7 75 15 148/88 93 Room Air 08/17/16 08:17 2.0 Laboratory Tests Test 08/19/16 03:00 08/19/16 06:40 08/19/16 12:00 Urine Eosinophils None seen White Blood Count 2.1 K/UL (4.8-10.8) *L Red Blood Count 3.36 M/UL (4.70-6.10) L Hemoglobin 9.1 G/DL (14.2-18.0) L Hematocrit 28.2 % (42.0-52.0) L Mean Corpuscular Volume 84 FL (80-99) Mean Corpuscular Hemoglobin 27.0 PG (27.0-31.0) Mean Corpuscular Hemoglobin Concent 32.2 G/DL (32.0-36.0) Red Cell Distribution Width 12.8 % (11.6-14.8) Platelet Count 97 K/UL (150-450) L Mean Platelet Volume 9.3 FL (6.5-10.1) Neutrophils (%) (Auto) % (45.0-75.0) Lymphocytes (%) (Auto) % (20.0-45.0) Monocytes (%) (Auto) % (1.0-10.0) Eosinophils (%) (Auto) % (0.0-3.0) Basophils (%) (Auto) % (0.0-2.0) Differential Total Cells Counted 100 Neutrophils % (Manual) 65 % (45-75) Lymphocytes % (Manual) 27 % (20-45) Monocytes % (Manual) 7 % (1-10) Eosinophils % (Manual) 0 % (0-3) Basophils % (Manual) 0 % (0-2) Band Neutrophils 1 % (0-8) Platelet Estimate Decreased L Platelet Morphology Normal Hypochromasia 1+ Anisocytosis 1+ Sodium Level 135 mEQ/L (135-145) Potassium Level 4.0 mEQ/L (3.4-4.9) Chloride Level 96 mEQ/L (98-107) L Carbon Dioxide Level 25 mEQ/L (20-30) Anion Gap 14 (5-15) Blood Urea Nitrogen 39 mg/dL (7-23) H Creatinine 3.6 mg/dL (0.7-1.2) H 3.5 mg/dL (0.7-1.2) H Estimat Glomerular Filtration Rate 17.3 mL/min (>60) 17.9 mL/min (>60) Glucose Level 123 mg/dL (74-106) H Uric Acid 8.1 mg/dL (3.0-7.5) H Calcium Level 7.4 mg/dL (8.6-10.2) L Phosphorus Level 3.7 mg/dL (2.5-4.8) Total Bilirubin < 0.2 mg/dL (0.0-1.2) Aspartate Amino Transf (AST/SGOT) 63 U/L (5-40) H Alanine Aminotransferase (ALT/SGPT) 27 U/L (3-41) Alkaline Phosphatase 69 U/L (40-129) Total Protein 4.5 g/dL (6.6-8.7) L Albumin 1.9 g/dL (3.5-5.2) L Globulin 2.6 g/dL Albumin/Globulin Ratio 0.7 (1.0-2.7) L Urine Collection Time Pending Urine Total Volume Pending Urine Creatinine 89 mg/dL Urine Creatinine 24 Hour 979 mg/24hr (6095-7287) L Patient Height Inches (Creat Clear) 67 INCHES Patient Weight Pounds (Creat Clear) 180 LBS Creatinine Clearance 17 mL/min (71-151) L Urine Total Protein mg/dL Pending Urine Total Protein 24 Hour Pending Microbiology Date/Time Source Procedure Growth Status 08/16/16 17:00 Nasal Nares MRSA Culture - Final NO METHICILLIN RESISTANT STAPH AUREUS... Complete Intake and Output 08/18/16 08/19/16 19:00 07:00 Intake Total 340 ml 320 ml Output Total 500 ml Balance 340 ml -180 ml Intake Oral 240 ml 320 ml IV Total 100 ml Output Urine Total 500 ml # Voids 1 2 Objective General Appearance: WD/WN, no apparent distress, alert EENT: PERRL/EOMI, normal ENT inspection Neck: non-tender, normal alignment, supple, normal inspection Cardiovascular: normal peripheral pulses, normal rate, regular rhythm, no gallop/murmur, no JVD Respiratory/Chest: chest wall non-tender, respiratory distress, crackles/rales , rhonchi - bilaterally, expiratory wheezing Abdomen: normal bowel sounds, non tender, soft, no organomegaly, no mass Extremities: normal range of motion 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 (3) Diabetes mellitus (4) HTN (hypertension) (5) Renal failure Assessment & Plan: See nephrology note. (6) Pleural effusion Assessment & Plan: See pulmonary note. (7) Pneumonia Assessment & Plan: Cont levaquin Status: progressing MARCUS GIL Aug 19, 2016 13:31
--- NOTE | 2016-08-19 14:53 | Pulmonology Progress Note ---
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 Interstitial edema and/or pneumonitis empiric abx sputum cx if able antitussive prn repeat CXR in am troponin x 3 negative, ECG no ischemic changes, pt was r/out for ACS cardio follows chest pain pleuritic in origin, likely 2 to underlying PNA as well as possibly element from not completely healed yet R ninth rib fracture initial CXR Left lateral basilar infiltrate and pleural effusion. Borderline cardiomegaly CT chest -CT chest with small bilateral pleural effusions, larger on the left on the right. The one on the left could be loculated Basilar compressive atelectasis Unusual mediastinal fluid which appears to be extrapericardial. Borderline cardiomegaly ECHO with EF of 50-55% , RVSP of10 and evidence of severe TR tachycardia resolved, likely 2 to fevers, infection continue ASA lipid panel stable BP management , nephro added CCB, continue DECLAN, monitor renal parameters, lytes avoid nephrotoxic renal US pending nephro follows per nephro CRF likely 2 to underlying diabetic nephropathy DVT prophylaxis HH trending down, started on EPO as per nephro anemia work up, transfuse prn, BS management with SS of insulin and Levemir, caution to avoid episode of hypoglycemia, HS snack dc plan soon as per PMD case discussed and evaluated by supervising physician Subjective Allergies: Coded Allergies: No Known Allergies (Unverified , 08/16/16) Subjective on RA, no signs of respiratory distress still with chest was pain R side with deep breathing hx of not completely healed yet R ninth rib fracture feeling better denies SOB,l Objective Last 24 Hour Vital Signs Date Time Temp Pulse Resp B/P Pulse Ox O2 Delivery O2 Flow Rate FiO2 08/19/16 12:48 97.7 75 15 148/88 93 Room Air 08/19/16 08:51 97.2 77 14 142/59 94 Room Air 08/19/16 08:46 77 142/76 08/19/16 04:00 98.4 74 20 136/70 93 Room Air 08/19/16 00:00 98.1 76 20 148/77 94 Room Air 08/18/16 19:00 98.2 78 20 131/66 95 Room Air 08/18/16 18:17 98.6 08/18/16 16:00 98.6 76 20 148/83 92 Room Air Intake and Output 08/18/16 08/19/16 19:00 07:00 Intake Total 340 ml 320 ml Output Total 500 ml Balance 340 ml -180 ml Intake Oral 240 ml 320 ml IV Total 100 ml Output Urine Total 500 ml # Voids 1 2 Objective General Appearance: no acute distress HEENT: normocephalic, atraumatic Respiratory/Chest: lungs clear - with moderate air entry , no respiratory distress, no accessory muscle use Cardiovascular: normal rate, regular rhythm, no JVD Abdomen: normal bowel sounds, soft, non tender, non distended Genitourinary: normal external genitalia Extremities: no edema Neurologic/Psychiatric: alert, responsive, normal mood/affect Microbiology Date/Time Source Procedure Growth Status 08/16/16 17:00 Nasal Nares MRSA Culture - Final NO METHICILLIN RESISTANT STAPH AUREUS... Complete Laboratory Tests 08/19/16 03:00: Urine Eosinophils None seen 08/19/16 06:40: White Blood Count 2.1*L, Red Blood Count 3.36L, Hemoglobin 9.1L, Hematocrit 28.2L, Mean Corpuscular Volume 84, Mean Corpuscular Hemoglobin 27.0, Mean Corpuscular Hemoglobin Concent 32.2, Red Cell Distribution Width 12.8, Platelet Count 97L, Mean Platelet Volume 9.3, Neutrophils (%) (Auto) , Lymphocytes (%) ( Auto) , Monocytes (%) (Auto) , Eosinophils (%) (Auto) , Basophils (%) (Auto) , Differential Total Cells Counted 100, Neutrophils % (Manual) 65, Lymphocytes % ( Manual) 27, Monocytes % (Manual) 7, Eosinophils % (Manual) 0, Basophils % ( Manual) 0, Band Neutrophils 1, Platelet Estimate DecreasedL, Platelet Morphology Normal, Hypochromasia 1+, Anisocytosis 1+, Sodium Level 135, Potassium Level 4.0, Chloride Level 96L, Carbon Dioxide Level 25, Anion Gap 14, Blood Urea Nitrogen 39H, Creatinine 3.6H, Estimat Glomerular Filtration Rate 17.3, Glucose Level 123H, Uric Acid 8.1H, Calcium Level 7.4L, Phosphorus Level 3.7, Total Bilirubin < 0.2, Aspartate Amino Transf (AST/SGOT) 63H, Alanine Aminotransferase (ALT/SGPT) 27, Alkaline Phosphatase 69, Total Protein 4.5L, Albumin 1.9L, Globulin 2.6, Albumin/Globulin Ratio 0.7L 08/19/16 12:00: Creatinine 3.5H, Estimat Glomerular Filtration Rate 17.9, Urine Collection Time 24, Urine Total Volume 1100, Urine Creatinine 89, Urine Creatinine 24 Hour 979L , Patient Height Inches (Creat Clear) 67, Patient Weight Pounds (Creat Clear) 180, Creatinine Clearance 17L, Urine Total Protein mg/dL 1121, Urine Total Protein 24 Hour 36403.0H Current Medications Medications (Trade) Dose Ordered Sig/Laquita Route PRN Reason Start Time Stop Time Status Last Admin Dose Admin Acetaminophen/ Hydrocodone Bitart ([place] 5/325) 1 tab Q4H PRN ORAL Moderate Pain (Pain Scale 4-6) 08/17/16 01:45 08/24/16 01:44 08/19/16 12:41 Amlodipine Besylate (Norvasc) 10 mg DAILY ORAL 08/17/16 13:00 09/16/16 12:59 08/19/16 08:46 Aspirin (ASA) 81 mg DAILY ORAL 08/17/16 09:00 09/16/16 08:59 08/19/16 08:45 Clonidine HCl (Catapres) 0.1 mg Q4H PRN ORAL bp over 160 syst 08/17/16 11:45 09/16/16 11:44 08/17/16 15:50 Dextrose (Dextrose 50%) STAT PRN IV Hypoglycemia 08/17/16 14:00 09/16/16 13:59 Docusate Sodium 100 mg 100 mg THREE TIMES A DAY ORAL 08/19/16 13:00 09/18/16 12:59 08/19/16 12:38 Epoetin Solitario (Procrit (for non ESRD use)) 10,000 units SAT-WED-SAT SUBQ 08/20/16 21:00 09/19/16 20:59 Guaifenesin/ Dextromethorphan (Robitussin DM Syrup) 10 ml Q4H PRN ORAL For Cough 08/17/16 13:15 09/16/16 13:14 08/19/16 12:38 Heparin Sodium (Porcine) (Heparin 5000 units/ml) 5,000 units EVERY 8 HOURS SUBQ 08/17/16 06:00 09/16/16 05:59 Insulin Aspart (NovoLOG) BEFORE MEALS AND HS SUBQ 08/17/16 06:30 09/16/16 06:29 08/19/16 12:40 Insulin Detemir (Levemir) 20 units DAILY SUBQ 08/17/16 09:00 09/16/16 08:59 08/19/16 10:03 Levofloxacin (Levaquin) 50 ml @ 50 mls/hr Q48H IVPB 08/21/16 09:00 08/28/16 08:59 Nitroglycerin (Ntg) 0.4 mg Q5M PRN SL Prn Chest Pain 08/17/16 01:30 09/16/16 01:29 08/17/16 07:49 Ondansetron HCl (Zofran) 4 mg Q6H PRN IVP Nausea & Vomiting 08/17/16 05:15 09/16/16 05:14 Sodium Phosphate (Fleet's Sodium Phosl Enema) 133 ml DAILYPRN PRN RECTAL constipation 08/18/16 19:15 09/17/16 19:14 Tamsulosin HCl (Flomax) 0.4 mg BID ORAL 08/18/16 11:00 09/17/16 10:59 08/19/16 08:45 [facility] Manuel [facility] NP Aug 19, 2016 14:53
[2016-08-19 16:10] VITALS: BP 125/72
[2016-08-19 20:29] VITALS: BP 121/65
[2016-08-20] VITALS: BP 137/94
[2016-08-20 04:00] VITALS: BP 147/80
[2016-08-20] MEDS: Heparin 5000 units/ml inj SUBQ SCH ×2 (05:54→13:31)
[2016-08-20] MEDS: NovoLOG Insulin Flexpen SUBQ SCH ×4 (06:06→21:05)
[2016-08-20 06:09] LABS: MEAN CORPUSCULAR HEMOGLOBIN 26.6 PG (27.0-31.0); MEAN CORPUSCULAR HGB CONC 31.9 G/DL (32.0-36.0); MEAN CORPUSCULAR VOLUME 84 FL (80-99); PLATELET COUNT 94 K/UL (150-450); RED BLOOD COUNT 3.24 M/UL (4.70-6.10); RED CELL DISTRIBUTION WIDTH 12.7 % (11.6-14.8)
[2016-08-20 06:24] LABS: WHITE BLOOD COUNT 1.8 K/UL (4.8-10.8)
[2016-08-20 06:54] LABS: ALANINE AMINOTRANSFERASE 25 U/L (3-41); ALBUMIN/GLOBULIN RATIO 0.6 (1.0-2.7); ANION GAP 11 (5-15); ASPARTATE AMINO TRANSFERASE 56 U/L (5-40); CALCIUM 7.5 mg/dL (8.6-10.2); CARBON DIOXIDE 26 mEQ/L (20-30); CHLORIDE 98 mEQ/L (98-107); CREATININE 3.7 mg/dL (0.7-1.2); CRP QUANT 0.8 mg/dL (< 0.5); GLOMERULAR FILTRATION RATE 16.8 mL/min (>60); HEMOLYSIS 4; MAGNESIUM 1.9 mg/dL (1.7-2.5); PHOSPHORUS 3.8 mg/dL (2.5-4.8); POTASSIUM 3.8 mEQ/L (3.4-4.9); SODIUM 135 mEQ/L (135-145); TOTAL PROTEIN 4.4 g/dL (6.6-8.7); URIC ACID 8.4 mg/dL (3.0-7.5)
[2016-08-20 07:24] LABS: BAND NEUTROPHILS % (MANUAL) 1 % (0-8); EOSINOPHILS % (MANUAL) 2 % (0-3); LYMPHOCYTES % (MANUAL) 31 % (20-45); NEUTROPHILS % (MANUAL) 53 % (45-75); TOTAL CELLS COUNTED 100
[2016-08-20 07:28] LABS: BASOPHILS % (MANUAL) 0 % (0-2); PLATELET ESTIMATE DECREASED; PLATELET MORPHOLOGY NORMAL
[2016-08-20 08:00] VITALS: BP 156/84
[2016-08-20] MEDS: Aspirin Baby 81mg ORAL SCH (08:58)
[2016-08-20] MEDS: Docusate 100mg cap ORAL SCH ×3 (08:59→17:16)
[2016-08-20] MEDS: Tamsulosin 0.4mg cap ORAL SCH ×2 (08:59→17:16)
[2016-08-20] MEDS: Levemir Flexpen SUBQ SCH (09:00)
--- NOTE | 2016-08-20 10:51 | Diagnostic Imaging Report ---
Indication: Abnormal renal function tests Technique: Grayscale and duplex images of the kidneys, retroperitoneum, and bladder were obtained. Comparison:None Findings: Right kidney measures 11.4 cm in length. Left kidney measures 11 cm in length. Both kidneys demonstrate normal echogenicity. No hydronephrosis. Additional small calcifications are seen in the left renal sinus. There are small right renal cysts is only noted, largest in the lower pole measuring 1 cm diameter. Normal inferior vena cava. Bladder is normal. Prostate is prominent, prostate volume 41 mL Impression: Negative for hydronephrosis Possible small left renal nonobstructive calculi Prominent prostate, 41 mL Incidental finding small right renal cysts.
--- NOTE | 2016-08-20 11:42 | Internal Med Progress Note ---
Subjective Date of Service: Aug 20, 2016 Physician Name GilMarcus Attending Physician Renard Frances MD Current Medications Medications (Trade) Dose Ordered Sig/Laquita Route PRN Reason Start Time Stop Time Status Last Admin Dose Admin Acetaminophen/ Hydrocodone Bitart ([place] 5/325) 1 tab Q4H PRN ORAL Moderate Pain (Pain Scale 4-6) 08/17/16 01:45 08/24/16 01:44 08/19/16 18:00 Amlodipine Besylate (Norvasc) 10 mg DAILY ORAL 08/17/16 13:00 09/16/16 12:59 08/20/16 08:59 Aspirin (ASA) 81 mg DAILY ORAL 08/17/16 09:00 09/16/16 08:59 08/20/16 08:58 Clonidine HCl (Catapres) 0.1 mg Q4H PRN ORAL bp over 160 syst 08/17/16 11:45 09/16/16 11:44 08/17/16 15:50 Dextrose (Dextrose 50%) STAT PRN IV Hypoglycemia 08/17/16 14:00 09/16/16 13:59 Docusate Sodium 100 mg 100 mg THREE TIMES A DAY ORAL 08/19/16 13:00 09/18/16 12:59 08/20/16 08:59 Epoetin Solitario (Procrit (for non ESRD use)) 10,000 units MON-WED-SAT SUBQ 08/20/16 21:00 09/19/16 20:59 Guaifenesin/ Dextromethorphan (Robitussin DM Syrup) 10 ml Q4H PRN ORAL For Cough 08/17/16 13:15 09/16/16 13:14 08/19/16 12:38 Heparin Sodium (Porcine) (Heparin 5000 units/ml) 5,000 units EVERY 8 HOURS SUBQ 08/17/16 06:00 09/16/16 05:59 Insulin Aspart (NovoLOG) BEFORE MEALS AND HS SUBQ 08/17/16 06:30 09/16/16 06:29 08/19/16 12:40 Insulin Detemir (Levemir) 20 units DAILY SUBQ 08/17/16 09:00 09/16/16 08:59 08/19/16 10:03 Levofloxacin (Levaquin) 50 ml @ 50 mls/hr Q48H IVPB 08/21/16 09:00 08/28/16 08:59 Nitroglycerin (Ntg) 0.4 mg Q5M PRN SL Prn Chest Pain 08/17/16 01:30 09/16/16 01:29 08/17/16 07:49 Ondansetron HCl (Zofran) 4 mg Q6H PRN IVP Nausea & Vomiting 08/17/16 05:15 09/16/16 05:14 Sodium Phosphate (Fleet's Sodium Phosl Enema) 133 ml DAILYPRN PRN RECTAL constipation 08/18/16 19:15 09/17/16 19:14 Tamsulosin HCl (Flomax) 0.4 mg BID ORAL 08/18/16 11:00 09/17/16 10:59 08/20/16 08:59 Allergies: Coded Allergies: No Known Allergies (Unverified , 08/16/16) ROS Limited/Unobtainable: No Constitutional: Reports: no symptoms HEENT: Reports: no symptoms Cardiovascular: Reports: chest pain Respiratory: Reports: no symptoms Gastrointestinal/Abdominal: Reports: no symptoms Genitourinary: Reports: no symptoms Neurologic/Psychiatric: Reports: no symptoms Subjective 61 YO M admitted with cough and Chest pain. Cover for Int [place] - Dr Frances. Worsening leukopenia Objective Last Vital Signs Date Time Temp Pulse Resp B/P Pulse Ox O2 Delivery O2 Flow Rate FiO2 08/20/16 08:59 64 156/84 08/20/16 08:00 97.3 18 93 Room Air 08/17/16 08:17 2.0 Laboratory Tests Test 08/19/16 12:00 08/19/16 17:00 08/20/16 03:00 08/20/16 04:30 Urine Collection Time 24 HRS Urine Total Volume 1100 ML Urine Creatinine 89 mg/dL Urine Creatinine 24 Hour 979 mg/24hr (9351-9426) L Patient Height Inches (Creat Clear) 67 INCHES Patient Weight Pounds (Creat Clear) 180 LBS Creatinine Clearance 17 mL/min (71-151) L Urine Total Protein mg/dL 1121 MG/DL Urine Total Protein 24 Hour 14166.0 mg/24hr (< Creatinine 3.5 mg/dL (0.7-1.2) H 3.7 mg/dL (0.7-1.2) H Estimat Glomerular Filtration Rate 17.9 mL/min (>60) 16.8 mL/min (>60) Stool Occult Blood Pending Urine Eosinophils None seen White Blood Count 1.8 K/UL (4.8-10.8) *L Red Blood Count 3.24 M/UL (4.70-6.10) L Hemoglobin 8.6 G/DL (14.2-18.0) L Hematocrit 27.1 % (42.0-52.0) L Mean Corpuscular Volume 84 FL (80-99) Mean Corpuscular Hemoglobin 26.6 PG (27.0-31.0) L Mean Corpuscular Hemoglobin Concent 31.9 G/DL (32.0-36.0) L Red Cell Distribution Width 12.7 % (11.6-14.8) Platelet Count 94 K/UL (150-450) L Mean Platelet Volume 9.0 FL (6.5-10.1) Neutrophils (%) (Auto) % (45.0-75.0) Lymphocytes (%) (Auto) % (20.0-45.0) Monocytes (%) (Auto) % (1.0-10.0) Eosinophils (%) (Auto) % (0.0-3.0) Basophils (%) (Auto) % (0.0-2.0) Differential Total Cells Counted 100 Neutrophils % (Manual) 53 % (45-75) Lymphocytes % (Manual) 31 % (20-45) Monocytes % (Manual) 13 % (1-10) H Eosinophils % (Manual) 2 % (0-3) Basophils % (Manual) 0 % (0-2) Band Neutrophils 1 % (0-8) Platelet Estimate Decreased L Platelet Morphology Normal Red Blood Cell Morphology Normal Sodium Level 135 mEQ/L (135-145) Potassium Level 3.8 mEQ/L (3.4-4.9) Chloride Level 98 mEQ/L (98-107) Carbon Dioxide Level 26 mEQ/L (20-30) Anion Gap 11 (5-15) Blood Urea Nitrogen 42 mg/dL (7-23) H Glucose Level 96 mg/dL (74-106) Uric Acid 8.4 mg/dL (3.0-7.5) H Calcium Level 7.5 mg/dL (8.6-10.2) L Phosphorus Level 3.8 mg/dL (2.5-4.8) Magnesium Level 1.9 mg/dL (1.7-2.5) Total Bilirubin < 0.2 mg/dL (0.0-1.2) Aspartate Amino Transf (AST/SGOT) 56 U/L (5-40) H Alanine Aminotransferase (ALT/SGPT) 25 U/L (3-41) Alkaline Phosphatase 64 U/L (40-129) C-Reactive Protein, Quantitative 0.8 mg/dL (< 0.5) H Pro-B-Type Natriuretic Peptide 6851 pg/mL (0-125) H Total Protein 4.4 g/dL (6.6-8.7) L Albumin 1.7 g/dL (3.5-5.2) L Globulin 2.7 g/dL Albumin/Globulin Ratio 0.6 (1.0-2.7) L Intake and Output 08/19/16 08/20/16 19:00 07:00 Intake Total 800 ml 480 ml Output Total 400 ml 300 ml Balance 400 ml 180 ml Intake Oral 800 ml 480 ml Output Urine Total 400 ml 300 ml # Voids 2 Objective General Appearance: WD/WN, no apparent distress, alert EENT: PERRL/EOMI, normal ENT inspection Neck: non-tender, normal alignment, supple, normal inspection Cardiovascular: normal peripheral pulses, normal rate, regular rhythm, no gallop/murmur, no JVD Respiratory/Chest: chest wall non-tender, respiratory distress, crackles/rales , rhonchi - bilaterally, expiratory wheezing Abdomen: normal bowel sounds, non tender, soft, no organomegaly, no mass Extremities: normal range of motion Neurologic: child care coordinator II-XII grossly normal, no motor/sensory deficits Skin: normal pigmentation, warm/dry Assessment/Plan Problem List: (1) Cough (2) Chest pain, pleuritic Assessment & Plan: see cardiology note. (3) Diabetes mellitus (4) HTN (hypertension) (5) Renal failure Assessment & Plan: See nephrology note. (6) Pleural effusion Assessment & Plan: See pulmonary note. (7) Pneumonia Assessment & Plan: Cont levaquin (8) Leukopenia Assessment & Plan: Await ID consult. MARCUS GIL Aug 20, 2016 11:42
[2016-08-20 12:00] VITALS: BP 139/79
--- NOTE | 2016-08-20 12:01 | Infectious Diseases Prog Note ---
Assessment/Plan Assessment/Plan Full consult dictated: A) 1) pna, likely cap, influenza and viral syndrome, fevers, leukopenia 2) dm, htn, renal failure 3) nkda P) 1) levofloxacin 2) check sc, serology, influenza screen, hiv, hepatitis, labs and chest x-ray 3) orders entered and noted 4) d/w Dr. Victoria 5) d/w pt and RN 6) thank you Subjective Allergies: Coded Allergies: No Known Allergies (Unverified , 08/16/16) Objective Vital Signs Last 24 Hour Vital Signs Date Time Temp Pulse Resp B/P Pulse Ox O2 Delivery O2 Flow Rate FiO2 08/20/16 08:59 64 156/84 08/20/16 08:00 97.3 64 18 156/84 93 Room Air 08/20/16 04:00 97.3 70 16 147/80 93 Room Air 08/20/16 00:00 98.2 64 18 137/94 96 Room Air 08/19/16 20:29 97.7 69 19 121/65 95 Room Air 08/19/16 16:10 98.2 68 19 125/72 94 Room Air 08/19/16 12:48 97.7 75 15 148/88 93 Room Air Height (Feet): 5 Height (Inches): 7.00 Weight (Pounds): 180 Laboratory Tests Test 08/19/16 12:00 08/19/16 17:00 08/20/16 03:00 08/20/16 04:30 Urine Collection Time 24 HRS Urine Total Volume 1100 ML Urine Creatinine 89 mg/dL Urine Creatinine 24 Hour 979 mg/24hr (4993-3253) L Patient Height Inches (Creat Clear) 67 INCHES Patient Weight Pounds (Creat Clear) 180 LBS Creatinine Clearance 17 mL/min (71-151) L Urine Total Protein mg/dL 1121 MG/DL Urine Total Protein 24 Hour 97045.0 mg/24hr (< Creatinine 3.5 mg/dL (0.7-1.2) H 3.7 mg/dL (0.7-1.2) H Estimat Glomerular Filtration Rate 17.9 mL/min (>60) 16.8 mL/min (>60) Stool Occult Blood Negative (NEGATIVE) Urine Eosinophils None seen White Blood Count 1.8 K/UL (4.8-10.8) *L Red Blood Count 3.24 M/UL (4.70-6.10) L Hemoglobin 8.6 G/DL (14.2-18.0) L Hematocrit 27.1 % (42.0-52.0) L Mean Corpuscular Volume 84 FL (80-99) Mean Corpuscular Hemoglobin 26.6 PG (27.0-31.0) L Mean Corpuscular Hemoglobin Concent 31.9 G/DL (32.0-36.0) L Red Cell Distribution Width 12.7 % (11.6-14.8) Platelet Count 94 K/UL (150-450) L Mean Platelet Volume 9.0 FL (6.5-10.1) Neutrophils (%) (Auto) % (45.0-75.0) Lymphocytes (%) (Auto) % (20.0-45.0) Monocytes (%) (Auto) % (1.0-10.0) Eosinophils (%) (Auto) % (0.0-3.0) Basophils (%) (Auto) % (0.0-2.0) Differential Total Cells Counted 100 Neutrophils % (Manual) 53 % (45-75) Lymphocytes % (Manual) 31 % (20-45) Monocytes % (Manual) 13 % (1-10) H Eosinophils % (Manual) 2 % (0-3) Basophils % (Manual) 0 % (0-2) Band Neutrophils 1 % (0-8) Platelet Estimate Decreased L Platelet Morphology Normal Red Blood Cell Morphology Normal Sodium Level 135 mEQ/L (135-145) Potassium Level 3.8 mEQ/L (3.4-4.9) Chloride Level 98 mEQ/L (98-107) Carbon Dioxide Level 26 mEQ/L (20-30) Anion Gap 11 (5-15) Blood Urea Nitrogen 42 mg/dL (7-23) H Glucose Level 96 mg/dL (74-106) Uric Acid 8.4 mg/dL (3.0-7.5) H Calcium Level 7.5 mg/dL (8.6-10.2) L Phosphorus Level 3.8 mg/dL (2.5-4.8) Magnesium Level 1.9 mg/dL (1.7-2.5) Total Bilirubin < 0.2 mg/dL (0.0-1.2) Aspartate Amino Transf (AST/SGOT) 56 U/L (5-40) H Alanine Aminotransferase (ALT/SGPT) 25 U/L (3-41) Alkaline Phosphatase 64 U/L (40-129) C-Reactive Protein, Quantitative 0.8 mg/dL (< 0.5) H Pro-B-Type Natriuretic Peptide 6851 pg/mL (0-125) H Total Protein 4.4 g/dL (6.6-8.7) L Albumin 1.7 g/dL (3.5-5.2) L Globulin 2.7 g/dL Albumin/Globulin Ratio 0.6 (1.0-2.7) L Current Medications Medications (Trade) Dose Ordered Sig/Laquita Route PRN Reason Start Time Stop Time Status Last Admin Dose Admin Acetaminophen/ Hydrocodone Bitart ([place] 5/325) 1 tab Q4H PRN ORAL Moderate Pain (Pain Scale 4-6) 08/17/16 01:45 08/24/16 01:44 08/19/16 18:00 Amlodipine Besylate (Norvasc) 10 mg DAILY ORAL 08/17/16 13:00 09/16/16 12:59 08/20/16 08:59 Aspirin (ASA) 81 mg DAILY ORAL 08/17/16 09:00 09/16/16 08:59 08/20/16 08:58 Clonidine HCl (Catapres) 0.1 mg Q4H PRN ORAL bp over 160 syst 08/17/16 11:45 09/16/16 11:44 08/17/16 15:50 Dextrose (Dextrose 50%) STAT PRN IV Hypoglycemia 08/17/16 14:00 09/16/16 13:59 Docusate Sodium 100 mg 100 mg THREE TIMES A DAY ORAL 08/19/16 13:00 09/18/16 12:59 08/20/16 08:59 Epoetin Solitario (Procrit (for non ESRD use)) 10,000 units MON-SAT-SAT SUBQ 08/20/16 21:00 09/19/16 20:59 Guaifenesin/ Dextromethorphan (Robitussin DM Syrup) 10 ml Q4H PRN ORAL For Cough 08/17/16 13:15 09/16/16 13:14 08/19/16 12:38 Heparin Sodium (Porcine) (Heparin 5000 units/ml) 5,000 units EVERY 8 HOURS SUBQ 08/17/16 06:00 09/16/16 05:59 Insulin Aspart (NovoLOG) BEFORE MEALS AND HS SUBQ 08/17/16 06:30 09/16/16 06:29 08/19/16 12:40 Insulin Detemir (Levemir) 20 units DAILY SUBQ 08/17/16 09:00 09/16/16 08:59 08/19/16 10:03 Levofloxacin (Levaquin) 50 ml @ 50 mls/hr Q48H IVPB 08/21/16 09:00 08/28/16 08:59 Nitroglycerin (Ntg) 0.4 mg Q5M PRN SL Prn Chest Pain 08/17/16 01:30 09/16/16 01:29 08/17/16 07:49 Ondansetron HCl (Zofran) 4 mg Q6H PRN IVP Nausea & Vomiting 08/17/16 05:15 09/16/16 05:14 Sodium Phosphate (Fleet's Sodium Phosl Enema) 133 ml DAILYPRN PRN RECTAL constipation 08/18/16 19:15 09/17/16 19:14 Tamsulosin HCl (Flomax) 0.4 mg BID ORAL 08/18/16 11:00 09/17/16 10:59 08/20/16 08:59 SHWETA JENNINGS Aug 20, 2016 12:01
--- NOTE | 2016-08-20 13:07 | General Progress Note ---
Assessment/Plan Status: stable Status Narrative Cr slightly higher Assessment/Plan Status: CKD due to Diabetic Nephropathy- DM , with episodic hypoglycemia Anemia Pneumonia / pleural effusion / right ninth rib fracture HTN OOC TR Leukopenia, ? viral?? plan: Urine studies- 24 H urine protein ( 12 grams) and CrCl ( 17 mil/min) Avoid Nephrotoxics- Kidney FREDDY- no hydro BP control On EPO on Levaquin Subjective ROS Limited/Unobtainable: No Constitutional: Reports: malaise Respiratory: Reports: cough Allergies: Coded Allergies: No Known Allergies (Unverified , 08/16/16) Objective Last 24 Hour Vital Signs Date Time Temp Pulse Resp B/P Pulse Ox O2 Delivery O2 Flow Rate FiO2 08/20/16 08:59 64 156/84 08/20/16 08:00 97.3 64 18 156/84 93 Room Air 08/20/16 04:00 97.3 70 16 147/80 93 Room Air 08/20/16 00:00 98.2 64 18 137/94 96 Room Air 08/19/16 20:29 97.7 69 19 121/65 95 Room Air 08/19/16 16:10 98.2 68 19 125/72 94 Room Air Intake and Output 08/19/16 08/20/16 19:00 07:00 Intake Total 800 ml 480 ml Output Total 400 ml 300 ml Balance 400 ml 180 ml Intake Oral 800 ml 480 ml Output Urine Total 400 ml 300 ml # Voids 2 Laboratory Tests 08/19/16 17:00: Stool Occult Blood Negative 08/20/16 03:00: Urine Eosinophils None seen 08/20/16 04:30: White Blood Count 1.8*L, Red Blood Count 3.24L, Hemoglobin 8.6L, Hematocrit 27.1L, Mean Corpuscular Volume 84, Mean Corpuscular Hemoglobin 26.6L, Mean Corpuscular Hemoglobin Concent 31.9L, Red Cell Distribution Width 12.7, Platelet Count 94L, Mean Platelet Volume 9.0, Neutrophils (%) (Auto) , Lymphocytes (%) (Auto) , Monocytes (%) (Auto) , Eosinophils (%) (Auto) , Basophils (%) (Auto) , Differential Total Cells Counted 100, Neutrophils % ( Manual) 53, Lymphocytes % (Manual) 31, Monocytes % (Manual) 13H, Eosinophils % ( Manual) 2, Basophils % (Manual) 0, Band Neutrophils 1, Platelet Estimate DecreasedL, Platelet Morphology Normal, Red Blood Cell Morphology Normal, Sodium Level 135, Potassium Level 3.8, Chloride Level 98, Carbon Dioxide Level 26, Anion Gap 11, Blood Urea Nitrogen 42H, Creatinine 3.7H, Estimat Glomerular Filtration Rate 16.8, Glucose Level 96, Uric Acid 8.4H, Calcium Level 7.5L, Phosphorus Level 3.8, Magnesium Level 1.9, Total Bilirubin < 0.2, Aspartate Amino Transf (AST/SGOT) 56H, Alanine Aminotransferase (ALT/SGPT) 25, Alkaline Phosphatase 64, C-Reactive Protein, Quantitative 0.8H, Pro-B-Type Natriuretic Peptide 6851H, Total Protein 4.4L, Albumin 1.7L, Globulin 2.7, Albumin/Globulin Ratio 0.6L 08/20/16 12:15: Hepatitis A IgM Antibody [Pending], Hepatitis B Surface Antigen [Pending], Hepatitis B Core IgM Antibody [Pending], Hepatitis C Antibody [Pending], HIV (1& 2) Antibody Rapid [Pending], Urine Legionella Antigen [Pending], Mycoplasma pneumoniae IgG Antibody [Pending], Mycoplasma pneumoniae IgM Ab Titer [Pending] Height (Feet): 5 Height (Inches): 7.00 Weight (Pounds): 180 General Appearance: no apparent distress Cardiovascular: regular rhythm Respiratory/Chest: decreased breath sounds Abdomen: soft Objective other physical exam not changed RONALD SEVERINO Aug 20, 2016 13:07
--- NOTE | 2016-08-20 13:28 | Diagnostic Imaging Report ---
Indication: Dyspnea Comparison: 08/18/16 A single view chest radiograph was obtained. Findings: There is a parenchymal density at the left lung base with adjacent area of pleural thickening or fluid. Findings are similar on the prior study. Heart size is borderline enlarged. The Impression: Suspect is scarring at the left lung base. No change from the prior study
[2016-08-20 15:57] VITALS: BP 142/78
[2016-08-20 18:47] LABS: HEMOLYSIS 6; IRON 19 ug/dL (59-158); TOTAL IRON BINDING CAPACITY 141 ug/dL (250-400)
[2016-08-20 18:58] LABS: PSA TOTAL 6.9 ng/mL (< 4.5)
[2016-08-20 19:19] LABS: LACTATE DEHYDROGENASE 224 U/L (135-230)
[2016-08-20 20:00] VITALS: BP 153/88
--- NOTE | 2016-08-20 20:38 | Consultation ---
DATE OF CONSULTATION: CONSULTING PHYSICIAN: Jo Wray M.D. ATTENDING PHYSICIAN: Renard Frances M.D. I was asked by Dr. Deangelo Victoria to see this patient. REASON FOR CONSULTATION: Pneumonia, fevers, leukopenia. CHIEF COMPLAINT: The patient's chief complaint coming into the hospital is renal failure, acute coronary syndrome, and possible pneumonia. HISTORY OF PRESENT ILLNESS: This is a very pleasant 61-year-old male, who comes in with cough and congestion. The patient had chest pain also. The patient was admitted and was noted to have fevers. The patient said he has been febrile prior to admission with cough and congestion. Imaging studies including CT scan of the chest showed the patient to have effusions and atelectasis. Chest x-ray had interstitial disease, edema versus pneumonitis and initial chest x-ray had left basilar infiltrates. The patient was noted to have progressive leukopenia, initial white count 7 and now is 1.8, total white count. Infectious Disease consultation was requested for antibiotic management on this patient. The patient is on Levaquin at this time. He states his cough and congestion are somewhat better as well as fevers. Case was discussed with Dr. Victoria. MAR was noted. Orders noted. Notes were reviewed. PAST MEDICAL HISTORY: Includes history of following. The patient has a diabetes mellitus. The patient has a history of hypertension. The patient has chronic renal failure. The patient comes in with elevated creatinine. He is anemic. The patient is leukopenic. He has anemia and thrombocytopenia. He has chronic kidney disease. Please see past medical history in medical record. MEDICATIONS: Upon reviewing the MAR, the patient is on the following medications. He is on Levaquin, Procrit, Colace, Flomax, Robitussin, Norvasc, aspirin, Catapres, Levemir, NovoLog insulin, heparin, Zofran, nitroglycerin, amlodipine, Epogen, hydrocodone, and insulin. Please see medications in medical record. Antibiotics include Levaquin. ALLERGIES: No known drug allergies. No antibiotic allergy. SOCIAL HISTORY: Positive for smoking in the past, he no longer smokes. No alcohol or drug abuse. FAMILY HISTORY: Noncontributory. REVIEW OF SYSTEMS: Constitutional: As discussed he came in with fevers and also chills, cough, congestion, some sputum production. No weight loss mentioned. No night sweats. Head And Neck: No thrush or dysphagia Pulmonary: As discussed congestion, shortness of breath, and sputum. Cardiac: No chest pain. Gastrointestinal: No nausea, vomiting, or diarrhea. Genitourinary: No dysuria or frequency. Skin: No rash or itching. Extremities: No extremity pain. Neurologic: No seizure. PHYSICAL EXAMINATION:: GENERAL: He is alert and responsive, no acute distress. VITAL SIGNS: T-max 99.7 degrees and temperature now is 97.3, pulse rate 64, respiratory rate 18, blood pressure 156/84, and saturation 93%. HEENT: Head And Neck: Oral exam, no thrush. Eye exam, no icterus. Neck is supple. No JVD. No sinus tenderness. Normocephalic. No facial droop. No neck stiffness. HEART: Regular. No gallop or murmur. No friction rub. LUNGS: There maybe some occasional rales bilaterally and decreased breath sounds. ABDOMEN: Soft. Positive bowel sounds. Nontender. No organomegaly. RECTAL: Deferred. GENITOURINARY: No Isaac. SKIN: No rash or dermatitis. MUSCULOSKELETAL: No effusion or contractures. Legs are without cellulitis. No gangrene on extremities. PERIPHERAL VASCULAR: No cyanosis or gangrene. LINES: Line sites are without phlebitis. NEUROLOGIC: Intact and nonfocal. LABORATORY AND DIAGNOSTIC DATA: Laboratory data is as follows. Creatinine 3.7. LFTs were noted slightly elevated AST. White count now is 1.8, hemoglobin 8.6, and platelet count 94,000. Urinalysis was leukocyte esterase negative. Cultures, the patient blood culture is negative. MRSA screen is negative. Imaging studies, CT scan showed bilateral atelectasis. Chest x-ray showed initial left lower lobe infiltrates. Followup chest x-ray shows interstitial disease bilaterally, nonspecific pulmonary edema versus pneumonia. Initial CT scan of the chest as discussed with atelectasis and effusions, possible loculated. ASSESSMENT AND PLAN: 1. The patient has possible pneumonia. He does have community-acquired pneumonia such as Streptococcus versus viral pneumonia. The patient also has possible underlying viral syndrome with fevers and subsequently leukopenia, rule out influenza. At this time, the patient is on Levaquin which is appropriate community-acquired pneumonia. Discussed with pharmacy about dosing. We will place the patient on Levaquin 500 mg every 48 hours. We will try to obtain legionella mycoplasma sputum culture. We will get influenza screen. Because of leukopenia, we also must rule out HIV and hepatitis especially with pancytopenia. We will order those tests also. serology, labs and chest x-ray. Watch white cell count closely. 2. Diabetes. 3. Hypertension. 4. Acute renal failure. 5. Chronic renal failure. 6. Anemia . 7. Blood sugar and blood pressure control per primary consultants. 8. Effusions and atelectasis . 9. Pancytopenia. 10. Leukopenia, anemia, thrombocytopenia. 11. Past medical history as noted. 12. No allergies. 13. Past smoker. 14. Case was discussed with Dr. Victoria. 15. Case was discussed with RN. 16. Case was discussed with the patient. 17. . Thank you for this consultation. I will follow. Jo Wray M.D. DR: Kacie JOB#: [id number] CC:
[2016-08-20] MEDS ORDERED: TBO-Filgrastim 300 mcg/0.5ml SQ ONE (21:00)
[2016-08-20] MEDS ORDERED: Epogen (for non ESRD use) SUBQ SCH (21:00)
[2016-08-20] MEDS ORDERED: Iron Sucrose 100 MG in NS 110 ML IVPB SCH (21:00)
--- NOTE | 2016-08-20 22:48 | Consultation ---
DATE OF CONSULTATION: 08/20/2016 HEMATOLOGY/ONCOLOGY CONSULTATION REASON FOR CONSULTATION: Pancytopenia. CURRENT COMPLAINT AND HISTORY OF PRESENT ILLNESS: Dear Dr. Frances and Dr. Victoria, Today, I had an opportunity to see one of your patient, Usama Sims, who as you well aware 61-year-old delightful gentleman with a past medical history remarkable for hypertension, diabetes mellitus, and recent bronchitis, which was treated by Zithromax. The patient ended up at [facility]. During evaluation, it was found that the patient developed pleuritic chest pain, pneumonia, pleural effusion, right fracture, chronic kidney disease, and anemia of kidney disease. During evaluation, it was found that the patient developed pancytopenia. My service was called for the evaluation of pancytopenia as well as severe leukopenia, thrombocytopenia, and anemia. PAST MEDICAL HISTORY: Diabetes mellitus. Hypertension. Chronic kidney disease. History of atypical chest pain. History of alcohol abuse. History of alcoholic pancreatitis. Status post cholecystectomy. MEDICATIONS: 1. Epogen subcutaneously. 2. Granix. 3. Colace. 4. Flomax. 5. Norvasc. 6. Aspirin. 7. Levemir. 8. NovoLog. 9. Nitroglycerin. ALLERGIES: NKDA. FAMILY HISTORY: Noncontributory. SOCIAL HISTORY: No history of smoking. Positive history of alcohol abuse. No history of recent drug use. REVIEW OF SYSTEMS: General: The patient is not in any significant distress, but is chronically ill. Respiratory: The patient claims shortness of breath particularly on exertion. Gastrointestinal: The patient claims constipation. Musculoskeletal: The patient claims muscle aches. PHYSICAL EXAMINATION: VITAL SIGNS: T-max 97 degrees. Respiratory rate 20. Heart rate 82. Blood pressure 130/80. HEENT: Head, normocephalic and atraumatic. NECK: Supple. No thyroid enlargement. No lymphadenopathy. LUNGS: Decreased breath sounds bilaterally with few rhonchi in the bases. HEART: S1 and S2 regular. ABDOMEN: Soft and benign. No organomegaly present. Bowel sounds present. EXTREMITIES: No cyanosis, clubbing, or edema. LABORATORY DATA: WBC 1.8, hemoglobin 8.6, hematocrit 27.1, and platelets 94,000. Chemistry shows creatinine 3.7 and ferritin 19. Serology, HIV negative. IMPRESSION: 1. Pancytopenia, multifactorial. 2. Leukopenia, persistent, most likely related to sepsis versus viral infection versus medication. 3. Anemia of chronic disease. 4. Anemia of kidney disease. 5. Anemia of iron deficiency. 6. Decreased hemoglobin and hematocrit, rule out gastrointestinal bleed. 7. Thrombocytopenia, multifactorial. 8. Rule out heparin-induced thrombocytopenia. 9. Dyspnea likely secondary to pneumonia. 10. Pleuritic chest pain, rule out acute myocardial infarction. 11. Sinus tachycardia. 12. Diabetes mellitus. 13. Hypertension. 14. Severe mitral regurgitation. 15. Bilateral pleural effusion. 16. Malnutrition. 17. Failure to thrive. RECOMMENDATIONS: 1. Watch counts. 2. Watch coagulopathy. 3. Epogen subcutaneously. 4. Iron IV. 5. PRBC transfusion on p.r.n. basis. 6. Check medication list, which one can decrease platelets count. 7. Discontinue heparin secondary to forceable decreased platelet count. 8. Discontinue Zofran secondary to forceable decreased platelet count. 9. Venous Doppler of bilateral lower extremities to rule out DVT. 10. SCD (compression boots) for DVT prophylaxis. 11. Neupogen on p.r.n. basis. 12. Platelet transfusion on p.r.n. basis. 13. Skin care. 14. Nutrition. 15. Cardiology followup. 16. Pulmonary followup. 17. Respiratory treatment. 18. Discussed with staff. Omer Pérez MD DR: PRINCESS JOB#: [id number] CC:
--- NOTE | 2016-08-20 23:02 | Pulmonology Progress Note ---
Assessment/Plan Problems: (1) Pleural effusion (2) Pneumonia (3) ATN (acute tubular necrosis) Assessment/Plan improving watch renal numbers might need HD soon Subjective ROS Limited/Unobtainable: No Interval Events: no new complains Allergies: Coded Allergies: No Known Allergies (Unverified , 08/16/16) Objective Last 24 Hour Vital Signs Date Time Temp Pulse Resp B/P Pulse Ox O2 Delivery O2 Flow Rate FiO2 08/20/16 20:00 97.9 82 20 153/88 95 Room Air 08/20/16 15:57 97.9 71 19 142/78 95 Room Air 08/20/16 12:00 97.3 68 18 139/79 91 Room Air 08/20/16 08:59 64 156/84 08/20/16 08:00 97.3 64 18 156/84 93 Room Air 08/20/16 04:00 97.3 70 16 147/80 93 Room Air 08/20/16 00:00 98.2 64 18 137/94 96 Room Air Intake and Output 08/19/16 08/20/16 19:00 07:00 Intake Total 800 ml 480 ml Output Total 400 ml 300 ml Balance 400 ml 180 ml Intake Oral 800 ml 480 ml Output Urine Total 400 ml 300 ml # Voids 2 General Appearance: WD/WN HEENT: normocephalic, atraumatic Respiratory/Chest: chest wall non-tender, lungs clear Cardiovascular: normal peripheral pulses, normal rate Abdomen: normal bowel sounds, soft, non tender Genitourinary: normal external genitalia Extremities: no cyanosis Skin: no rash Microbiology Date/Time Source Procedure Growth Status 08/20/16 13:00 Nasal Nares Influenza Types A,B Antigen (EMILIANA) - Final Complete Laboratory Tests 08/20/16 03:00: Urine Eosinophils None seen 08/20/16 04:30: White Blood Count 1.8*L, Red Blood Count 3.24L, Hemoglobin 8.6L, Hematocrit 27.1L, Mean Corpuscular Volume 84, Mean Corpuscular Hemoglobin 26.6L, Mean Corpuscular Hemoglobin Concent 31.9L, Red Cell Distribution Width 12.7, Platelet Count 94L, Mean Platelet Volume 9.0, Neutrophils (%) (Auto) , Lymphocytes (%) (Auto) , Monocytes (%) (Auto) , Eosinophils (%) (Auto) , Basophils (%) (Auto) , Differential Total Cells Counted 100, Neutrophils % ( Manual) 53, Lymphocytes % (Manual) 31, Monocytes % (Manual) 13H, Eosinophils % ( Manual) 2, Basophils % (Manual) 0, Band Neutrophils 1, Platelet Estimate DecreasedL, Platelet Morphology Normal, Red Blood Cell Morphology Normal, Sodium Level 135, Potassium Level 3.8, Chloride Level 98, Carbon Dioxide Level 26, Anion Gap 11, Blood Urea Nitrogen 42H, Creatinine 3.7H, Estimat Glomerular Filtration Rate 16.8, Glucose Level 96, Uric Acid 8.4H, Calcium Level 7.5L, Phosphorus Level 3.8, Magnesium Level 1.9, Total Bilirubin < 0.2, Aspartate Amino Transf (AST/SGOT) 56H, Alanine Aminotransferase (ALT/SGPT) 25, Alkaline Phosphatase 64, C-Reactive Protein, Quantitative 0.8H, Pro-B-Type Natriuretic Peptide 6851H, Total Protein 4.4L, Albumin 1.7L, Globulin 2.7, Albumin/Globulin Ratio 0.6L 08/20/16 11:20: Erythrocyte Sedimentation Rate 81H, Hemoglobin A [Pending], Hemoglobin A2 [ Pending], Hemoglobin C [Pending], Hemoglobin F () [Pending], Hemoglobin S [ Pending], Variant Hemoglobin [Pending], Hemoglobin Electrophoresis Interp [ Pending], Hemoglobin Interpretation [Pending], Hemoglobin Solubility [Pending], Miscellaneous Test 2 [Pending], Iron Level 19L, Total Iron Binding Capacity 141L , Percent Iron Saturation 13L, Unsaturated Iron Binding 122, Lactate Dehydrogenase 224, Prostate Specific Antigen 6.9H, Vitamin B12 Level > 2000H, Folate [Pending], Heparin-PF4 Antibody Screen [Pending] 08/20/16 12:15: Hepatitis A IgM Antibody [Pending], Hepatitis B Surface Antigen [Pending], Hepatitis B Core IgM Antibody [Pending], Hepatitis C Antibody [Pending], HIV (1& 2) Antibody Rapid Negative, Urine Legionella Antigen [Pending], Mycoplasma pneumoniae IgG Antibody [Pending], Mycoplasma pneumoniae IgM Ab Titer [Pending] Current Medications Medications (Trade) Dose Ordered Sig/Laquita Route PRN Reason Start Time Stop Time Status Last Admin Dose Admin Acetaminophen/ Hydrocodone Bitart (Lewis 5/325) 1 tab Q4H PRN ORAL Moderate Pain (Pain Scale 4-6) 08/17/16 01:45 08/24/16 01:44 08/19/16 18:00 Amlodipine Besylate (Norvasc) 10 mg DAILY ORAL 08/17/16 13:00 09/16/16 12:59 08/20/16 08:59 Aspirin (ASA) 81 mg DAILY ORAL 08/17/16 09:00 09/16/16 08:59 08/20/16 08:58 Clonidine HCl (Catapres) 0.1 mg Q4H PRN ORAL bp over 160 syst 08/17/16 11:45 09/16/16 11:44 08/17/16 15:50 Dextrose (Dextrose 50%) STAT PRN IV Hypoglycemia 08/17/16 14:00 09/16/16 13:59 Docusate Sodium 100 mg 100 mg THREE TIMES A DAY ORAL 08/19/16 13:00 09/18/16 12:59 08/20/16 17:16 Epoetin Solitario (Procrit (for non ESRD use)) 10,000 units SAT-SAT-SAT SUBQ 08/20/16 21:00 09/19/16 20:59 08/20/16 20:55 Guaifenesin/ Dextromethorphan (Robitussin DM Syrup) 10 ml Q4H PRN ORAL For Cough 08/17/16 13:15 09/16/16 13:14 08/19/16 12:38 Insulin Aspart (NovoLOG) BEFORE MEALS AND HS SUBQ 08/17/16 06:30 09/16/16 06:29 08/20/16 21:05 Insulin Detemir (Levemir) 20 units DAILY SUBQ 08/17/16 09:00 09/16/16 08:59 08/19/16 10:03 Iron Sucrose/ Sodium Chloride (Venofer/Sodium Chloride) 115 ml @ 460 mls/hr BEDTIME IVPB 08/20/16 21:00 08/24/16 21:14 08/20/16 20:56 Levofloxacin 100 ml @ 100 mls/hr Q48H IVPB 08/20/16 13:00 08/27/16 12:59 08/20/16 13:26 Nitroglycerin (Ntg) 0.4 mg Q5M PRN SL Prn Chest Pain 08/17/16 01:30 09/16/16 01:29 08/17/16 07:49 Prochlorperazine (Compazine) 10 mg Q6H PRN IVP Nausea & Vomiting 08/20/16 17:45 09/19/16 17:44 Sodium Phosphate (Fleet's Sodium Phosl Enema) 133 ml DAILYPRN PRN RECTAL constipation 08/18/16 19:15 09/17/16 19:14 Tamsulosin HCl (Flomax) 0.4 mg BID ORAL 08/18/16 11:00 09/17/16 10:59 08/20/16 17:16 LINDA GREENWOOD Aug 20, 2016 23:02
[2016-08-21] VITALS: BP 154/87
--- NOTE | 2016-08-21 | Cardiology Progress Note ---
Assessment/Plan Assessment/Plan LATE ENTRY NOTE FROM 08/20/2016 1. Dyspnea, likely due to pneumonia, LVEF is within normal limits. 2. Pleuritic chest pain, acute myocardial infarction is ruled out, no evidence of ischemia, normal wall motion. 3. Sinus tachycardia could be due to fever or pneumonia, resolved. 4. History of diabetes mellitus. 5. History of hypertension. 6. Severe mitral regurgitation. Subjective Subjective Transferred to the med surg unit. Objective Last 24 Hour Vital Signs Date Time Temp Pulse Resp B/P Pulse Ox O2 Delivery O2 Flow Rate FiO2 08/20/16 20:00 97.9 82 20 153/88 95 Room Air 08/20/16 15:57 97.9 71 19 142/78 95 Room Air 08/20/16 12:00 97.3 68 18 139/79 91 Room Air 08/20/16 08:59 64 156/84 08/20/16 08:00 97.3 64 18 156/84 93 Room Air 08/20/16 04:00 97.3 70 16 147/80 93 Room Air Intake and Output 08/20/16 08/21/16 19:00 07:00 Intake Total 820 ml 355 ml Balance 820 ml 355 ml Intake Oral 720 ml 240 ml IV Total 100 ml 115 ml # Voids 5 2 # Bowel Movements 2 2D Echo: LVEF 55%,Mild RV enlargement, LAE,Sev MR,Mild AR,RVSP 10 mmHg, Grade I LVDD Laboratory Tests Test 08/20/16 03:00 08/20/16 04:30 08/20/16 11:20 08/20/16 12:15 Urine Eosinophils None seen White Blood Count 1.8 K/UL (4.8-10.8) *L Red Blood Count 3.24 M/UL (4.70-6.10) L Hemoglobin 8.6 G/DL (14.2-18.0) L Hematocrit 27.1 % (42.0-52.0) L Mean Corpuscular Volume 84 FL (80-99) Mean Corpuscular Hemoglobin 26.6 PG (27.0-31.0) L Mean Corpuscular Hemoglobin Concent 31.9 G/DL (32.0-36.0) L Red Cell Distribution Width 12.7 % (11.6-14.8) Platelet Count 94 K/UL (150-450) L Mean Platelet Volume 9.0 FL (6.5-10.1) Neutrophils (%) (Auto) % (45.0-75.0) Lymphocytes (%) (Auto) % (20.0-45.0) Monocytes (%) (Auto) % (1.0-10.0) Eosinophils (%) (Auto) % (0.0-3.0) Basophils (%) (Auto) % (0.0-2.0) Differential Total Cells Counted 100 Neutrophils % (Manual) 53 % (45-75) Lymphocytes % (Manual) 31 % (20-45) Monocytes % (Manual) 13 % (1-10) H Eosinophils % (Manual) 2 % (0-3) Basophils % (Manual) 0 % (0-2) Band Neutrophils 1 % (0-8) Platelet Estimate Decreased L Platelet Morphology Normal Red Blood Cell Morphology Normal Sodium Level 135 mEQ/L (135-145) Potassium Level 3.8 mEQ/L (3.4-4.9) Chloride Level 98 mEQ/L (98-107) Carbon Dioxide Level 26 mEQ/L (20-30) Anion Gap 11 (5-15) Blood Urea Nitrogen 42 mg/dL (7-23) H Creatinine 3.7 mg/dL (0.7-1.2) H Estimat Glomerular Filtration Rate 16.8 mL/min (>60) Glucose Level 96 mg/dL (74-106) Uric Acid 8.4 mg/dL (3.0-7.5) H Calcium Level 7.5 mg/dL (8.6-10.2) L Phosphorus Level 3.8 mg/dL (2.5-4.8) Magnesium Level 1.9 mg/dL (1.7-2.5) Total Bilirubin < 0.2 mg/dL (0.0-1.2) Aspartate Amino Transf (AST/SGOT) 56 U/L (5-40) H Alanine Aminotransferase (ALT/SGPT) 25 U/L (3-41) Alkaline Phosphatase 64 U/L (40-129) C-Reactive Protein, Quantitative 0.8 mg/dL (< 0.5) H Pro-B-Type Natriuretic Peptide 6851 pg/mL (0-125) H Total Protein 4.4 g/dL (6.6-8.7) L Albumin 1.7 g/dL (3.5-5.2) L Globulin 2.7 g/dL Albumin/Globulin Ratio 0.6 (1.0-2.7) L Erythrocyte Sedimentation Rate 81 MM/HR (0-20) H Hemoglobin A Pending Hemoglobin A2 Pending Hemoglobin C Pending Hemoglobin F () Pending Hemoglobin S Pending Variant Hemoglobin Pending Hemoglobin Electrophoresis Interp Pending Hemoglobin Interpretation Pending Hemoglobin Solubility Pending Miscellaneous Test 2 Pending Iron Level 19 ug/dL (59-158) L Total Iron Binding Capacity 141 ug/dL (250-400) L Percent Iron Saturation 13 % (15-50) L Unsaturated Iron Binding 122 ug/dL (112-346) Lactate Dehydrogenase 224 U/L (135-230) Prostate Specific Antigen 6.9 ng/mL (< 4.5) H Vitamin B12 Level > 2000 pg/mL (211-946) H Folate Pending Heparin-PF4 Antibody Screen Pending Hepatitis A IgM Antibody Pending Hepatitis B Surface Antigen Pending Hepatitis B Core IgM Antibody Pending Hepatitis C Antibody Pending HIV (1&2) Antibody Rapid Negative (NEGATIVE) Urine Legionella Antigen Pending Mycoplasma pneumoniae IgG Antibody Pending Mycoplasma pneumoniae IgM Ab Titer Pending Microbiology Date/Time Source Procedure Growth Status 08/20/16 13:00 Nasal Nares Influenza Types A,B Antigen (EMILIANA) - Final Complete Objective HEENT: Atraumatic and normocephalic. Anicteric. Pupils are equal, round, and reactive to light and accommodation. Extraocular muscles intact. NECK: JVP is less than 5 cm. No carotid bruits. Carotid upstrokes 2+ bilaterally. CVS: Normal S1 and S2. Regular rate and rhythm. 2/6 HSM at LSB, no gallops or rubs. Tachycardic. PMI is at fourth intercostal space at the midclavicular line. LUNGS: Diminished breath sounds especially at both bases. There is presence of dullness, worse in the left base than the right. There are some crackles in the left base as well. No evidence of rhonchi. ABDOMEN: Soft, nontender, and nondistended. No hepatosplenomegaly. Positive bowel sounds. EXTREMITIES: No evidence of edema, clubbing, or cyanosis. ESTER SEVILLA Aug 21, 2016 00:00
[2016-08-21] MEDS: Guaifenesin/DM 10ml syrup ORAL PRN (00:31)
[2016-08-21 04:00] VITALS: BP 152/84
[2016-08-21] MEDS: NovoLOG Insulin Flexpen SUBQ SCH ×3 (05:47→15:30)
[2016-08-21 07:02] LABS: MEAN CORPUSCULAR HEMOGLOBIN 26.9 PG (27.0-31.0); MEAN CORPUSCULAR HGB CONC 32.1 G/DL (32.0-36.0); MEAN CORPUSCULAR VOLUME 84 FL (80-99); PLATELET COUNT 89 K/UL (150-450); RED BLOOD COUNT 3.33 M/UL (4.70-6.10); RED CELL DISTRIBUTION WIDTH 12.7 % (11.6-14.8); WHITE BLOOD COUNT 8.3 K/UL (4.8-10.8)
[2016-08-21 07:12] LABS: PROTHROMBIN TIME 10.5 SEC (9.30-11.50)
[2016-08-21 07:20] LABS: CALCIUM 7.1 mg/dL (8.6-10.2); CREATININE 3.5 mg/dL (0.7-1.2); GLOMERULAR FILTRATION RATE 17.9 mL/min (>60); POTASSIUM 3.9 mEQ/L (3.4-4.9)
[2016-08-21 08:06] VITALS: BP 134/71
[2016-08-21] MEDS: Levemir Flexpen SUBQ SCH (08:14)
[2016-08-21] MEDS: Aspirin Baby 81mg ORAL SCH (08:14)
[2016-08-21] MEDS: Docusate 100mg cap ORAL SCH ×2 (08:14→13:21)
[2016-08-21] MEDS: Norco 5mg/325mg tab ORAL PRN (08:14)
[2016-08-21] MEDS: Tamsulosin 0.4mg cap ORAL SCH (08:14)
[2016-08-21 11:55] VITALS: BP 141/80
[2016-08-21 11:59] LABS: BAND NEUTROPHILS % (MANUAL) 1 % (0-8); BASOPHILS % (MANUAL) 0 % (0-2); EOSINOPHILS % (MANUAL) 0 % (0-3); HYPOCHROMASIA 1+; LYMPHOCYTES % (MANUAL) 7 % (20-45); NEUTROPHILS % (MANUAL) 86 % (45-75); PLATELET ESTIMATE DECREASED; PLATELET MORPHOLOGY NORMAL; TOTAL CELLS COUNTED 100
--- NOTE | 2016-08-21 12:33 | General Progress Note ---
Assessment/Plan Status: stable Assessment/Plan Status: CKD due to Diabetic Nephropathy- Nephrotic Range Proteinuria DM , with episodic hypoglycemia Anemia Pneumonia / pleural effusion / right ninth rib fracture HTN OOC TR Leukopenia, ? viral?? plan: Urine studies- 24 H urine protein ( 12 grams) and CrCl ( 17 mil/min) Avoid Nephrotoxics- Kidney FREDDY- no hydro BP control On EPO on Levaquin ? DC planning? Subjective ROS Limited/Unobtainable: No Constitutional: Reports: malaise Allergies: Coded Allergies: No Known Allergies (Unverified , 08/16/16) Objective Last 24 Hour Vital Signs Date Time Temp Pulse Resp B/P Pulse Ox O2 Delivery O2 Flow Rate FiO2 08/21/16 11:55 97.7 68 20 141/80 97 Room Air 68 08/21/16 08:14 70 134/71 08/21/16 08:06 98.2 70 20 134/71 94 Room Air 70 08/21/16 04:00 97.9 73 18 152/84 94 Room Air 73 08/21/16 00:00 98.1 72 18 154/87 95 Room Air 08/20/16 20:00 97.9 82 20 153/88 95 Room Air 08/20/16 15:57 97.9 71 19 142/78 95 Room Air Intake and Output 08/20/16 08/21/16 19:00 07:00 Intake Total 820 ml 595 ml Output Total 600 ml Balance 820 ml -5 ml Intake Oral 720 ml 480 ml IV Total 100 ml 115 ml Output Urine Total 600 ml # Voids 5 2 # Bowel Movements 2 1 Laboratory Tests 08/21/16 05:10: White Blood Count 8.3#, Red Blood Count 3.33L, Hemoglobin 9.0L, Hematocrit 27.9L , Mean Corpuscular Volume 84, Mean Corpuscular Hemoglobin 26.9L, Mean Corpuscular Hemoglobin Concent 32.1, Red Cell Distribution Width 12.7, Platelet Count 89L, Mean Platelet Volume 9.0, Neutrophils (%) (Auto) , Lymphocytes (%) ( Auto) , Monocytes (%) (Auto) , Eosinophils (%) (Auto) , Basophils (%) (Auto) , Differential Total Cells Counted 100, Neutrophils % (Manual) 86H, Lymphocytes % (Manual) 7L, Monocytes % (Manual) 6, Eosinophils % (Manual) 0, Basophils % ( Manual) 0, Band Neutrophils 1, Platelet Estimate DecreasedL, Platelet Morphology Normal, Hypochromasia 1+, Prothrombin Time 10.5, Prothromb Time International Ratio 1.0, Sodium Level 136, Potassium Level 3.9, Chloride Level 99, Carbon Dioxide Level 25, Anion Gap 12, Blood Urea Nitrogen 40H, Creatinine 3.5H, Estimat Glomerular Filtration Rate 17.9, Glucose Level 279#H, Calcium Level 7.1L Height (Feet): 5 Height (Inches): 7.00 Weight (Pounds): 180 General Appearance: no apparent distress Objective other physical exam not changed RONALD SEVERINO Aug 21, 2016 12:33
--- NOTE | 2016-08-21 15:28 | Infectious Diseases Prog Note ---
Assessment/Plan Assessment/Plan A) 1) pna, likely cap, viral syndrome, fevers, leukopenia - leukopenia improved , no fevers, influenza and hiv negative, chest x-ray with scar now 2) dm, htn, renal failure, cri, anemia 3) nkda, fh-nc, sh-negative, mar noted 4) d/w RN P) 1) levofloxacin x 5 days more for 7 day course 2) check sc and labs 3) orders entered and noted 4) treatment per primary and consultants 5) d/w pt Subjective Constitutional: Denies: chills, fatigue, fever HEENT: Denies: congestion Respiratory: Denies: shortness of breath Cardiovascular: Denies: chest pain Gastrointestinal/Abdominal: Denies: diarrhea, nausea, vomiting Genitourinary: Denies: dysuria, frequency, hematuria Neurologic: Denies: headache, numbness, weakness Psychiatric: Denies: depression Skin: Denies: rash Hematologic: Denies: bleeding Musculoskeletal: Denies: pain Allergies: Coded Allergies: No Known Allergies (Unverified , 08/16/16) Objective Vital Signs Last 24 Hour Vital Signs Date Time Temp Pulse Resp B/P Pulse Ox O2 Delivery O2 Flow Rate FiO2 08/21/16 11:55 97.7 68 20 141/80 97 Room Air 68 08/21/16 08:14 70 134/71 08/21/16 08:06 98.2 70 20 134/71 94 Room Air 70 08/21/16 04:00 97.9 73 18 152/84 94 Room Air 73 08/21/16 00:00 98.1 72 18 154/87 95 Room Air 08/20/16 20:00 97.9 82 20 153/88 95 Room Air 08/20/16 15:57 97.9 71 19 142/78 95 Room Air Height (Feet): 5 Height (Inches): 7.00 Weight (Pounds): 180 General Appearance: no acute distress HEENT: normocephalic, atraumatic, anicteric, mucous membranes moist, PERRL, EOMI, pharynx normal, supple, no JVD Respiratory/Chest: no respiratory distress, no accessory muscle use, decreased breath sounds, rhonchi - bilaterally Cardiovascular: normal rate, regular rhythm, no gallop/murmur, no JVD Abdomen: normal bowel sounds, soft, non tender, no organomegaly, non distended Genitourinary: other Extremities: no cyanosis Skin: no rash Neurologic/Psychiatric: alert, oriented x 3, responsive Lymphatic: no neck adenopathy Musculoskeletal: no effusion Objective 08/20 - chest x-ray - scar (initial with left infiltrate) Microbiology Date/Time Source Procedure Growth Status 08/20/16 13:00 Nasal Nares Influenza Types A,B Antigen (EMILIANA) - Final Complete 08/20/16 13:00 Sputum Induced Gram Stain - Final Resulted 08/20/16 13:00 Sputum Induced Sputum Culture Pending Resulted Laboratory Tests Test 08/21/16 05:10 White Blood Count 8.3 K/UL (4.8-10.8) # Red Blood Count 3.33 M/UL (4.70-6.10) L Hemoglobin 9.0 G/DL (14.2-18.0) L Hematocrit 27.9 % (42.0-52.0) L Mean Corpuscular Volume 84 FL (80-99) Mean Corpuscular Hemoglobin 26.9 PG (27.0-31.0) L Mean Corpuscular Hemoglobin Concent 32.1 G/DL (32.0-36.0) Red Cell Distribution Width 12.7 % (11.6-14.8) Platelet Count 89 K/UL (150-450) L Mean Platelet Volume 9.0 FL (6.5-10.1) Neutrophils (%) (Auto) % (45.0-75.0) Lymphocytes (%) (Auto) % (20.0-45.0) Monocytes (%) (Auto) % (1.0-10.0) Eosinophils (%) (Auto) % (0.0-3.0) Basophils (%) (Auto) % (0.0-2.0) Differential Total Cells Counted 100 Neutrophils % (Manual) 86 % (45-75) H Lymphocytes % (Manual) 7 % (20-45) L Monocytes % (Manual) 6 % (1-10) Eosinophils % (Manual) 0 % (0-3) Basophils % (Manual) 0 % (0-2) Band Neutrophils 1 % (0-8) Platelet Estimate Decreased L Platelet Morphology Normal Hypochromasia 1+ Prothrombin Time 10.5 SEC (9.30-11.50) Prothromb Time International Ratio 1.0 (0.9-1.1) Sodium Level 136 mEQ/L (135-145) Potassium Level 3.9 mEQ/L (3.4-4.9) Chloride Level 99 mEQ/L (98-107) Carbon Dioxide Level 25 mEQ/L (20-30) Anion Gap 12 (5-15) Blood Urea Nitrogen 40 mg/dL (7-23) H Creatinine 3.5 mg/dL (0.7-1.2) H Estimat Glomerular Filtration Rate 17.9 mL/min (>60) Glucose Level 279 mg/dL (74-106) #H Calcium Level 7.1 mg/dL (8.6-10.2) L Current Medications Medications (Trade) Dose Ordered Sig/Laquita Route PRN Reason Start Time Stop Time Status Last Admin Dose Admin Acetaminophen/ Hydrocodone Bitart ([place] 5/325) 1 tab Q4H PRN ORAL Moderate Pain (Pain Scale 4-6) 08/17/16 01:45 08/24/16 01:44 08/21/16 08:14 Amlodipine Besylate (Norvasc) 10 mg DAILY ORAL 08/17/16 13:00 09/16/16 12:59 08/21/16 08:14 Aspirin (ASA) 81 mg DAILY ORAL 08/17/16 09:00 09/16/16 08:59 08/21/16 08:14 Clonidine HCl (Catapres) 0.1 mg Q4H PRN ORAL bp over 160 syst 08/17/16 11:45 09/16/16 11:44 08/17/16 15:50 Dextrose (Dextrose 50%) STAT PRN IV Hypoglycemia 08/17/16 14:00 09/16/16 13:59 Docusate Sodium 100 mg 100 mg THREE TIMES A DAY ORAL 08/19/16 13:00 09/18/16 12:59 08/21/16 13:21 Epoetin Solitario (Procrit (for non ESRD use)) 10,000 units SAT-WED-SAT SUBQ 08/20/16 21:00 09/19/16 20:59 08/20/16 20:55 Guaifenesin/ Dextromethorphan (Robitussin DM Syrup) 10 ml Q4H PRN ORAL For Cough 08/17/16 13:15 09/16/16 13:14 08/21/16 00:31 Insulin Aspart (NovoLOG) BEFORE MEALS AND HS SUBQ 08/17/16 06:30 09/16/16 06:29 08/21/16 05:47 Insulin Detemir (Levemir) 20 units DAILY SUBQ 08/17/16 09:00 09/16/16 08:59 08/21/16 08:14 Iron Sucrose/ Sodium Chloride (Venofer/Sodium Chloride) 115 ml @ 460 mls/hr BEDTIME IVPB 08/20/16 21:00 08/24/16 21:14 08/20/16 20:56 Levofloxacin 100 ml @ 100 mls/hr Q48H IVPB 08/20/16 13:00 08/27/16 12:59 08/20/16 13:26 Nitroglycerin (Ntg) 0.4 mg Q5M PRN SL Prn Chest Pain 08/17/16 01:30 09/16/16 01:29 08/17/16 07:49 Prochlorperazine (Compazine) 10 mg Q6H PRN IVP Nausea & Vomiting 08/20/16 17:45 09/19/16 17:44 Sodium Phosphate (Fleet's Sodium Phosl Enema) 133 ml DAILYPRN PRN RECTAL constipation 08/18/16 19:15 09/17/16 19:14 Tamsulosin HCl (Flomax) 0.4 mg BID ORAL 08/18/16 11:00 09/17/16 10:59 08/21/16 08:14 SHWETA JENNINGS Aug 21, 2016 15:28
[2016-08-21] MEDS ORDERED: Tubing IV Secondary IV ONE (15:54)
[2016-08-21 16:00] VITALS: BP 149/81
--- NOTE | 2016-08-21 16:51 | Pulmonology Progress Note ---
Assessment/Plan Problems: (1) Pleural effusion (2) Pneumonia (3) ATN (acute tubular necrosis) Assessment/Plan improving watch renal numbers might need HD soon no new culturs [place] is 17 ok to go home Subjective ROS Limited/Unobtainable: No Interval Events: no more cough, or congestion, wants to go home Constitutional: Reports: no symptoms Allergies: Coded Allergies: No Known Allergies (Unverified , 08/16/16) Objective Last 24 Hour Vital Signs Date Time Temp Pulse Resp B/P Pulse Ox O2 Delivery O2 Flow Rate FiO2 08/21/16 16:00 97.5 74 18 149/81 94 Room Air 08/21/16 11:55 97.7 68 20 141/80 97 Room Air 68 08/21/16 08:14 70 134/71 08/21/16 08:06 98.2 70 20 134/71 94 Room Air 70 08/21/16 04:00 97.9 73 18 152/84 94 Room Air 73 08/21/16 00:00 98.1 72 18 154/87 95 Room Air 08/20/16 20:00 97.9 82 20 153/88 95 Room Air Intake and Output 08/20/16 08/21/16 19:00 07:00 Intake Total 820 ml 595 ml Output Total 600 ml Balance 820 ml -5 ml Intake Oral 720 ml 480 ml IV Total 100 ml 115 ml Output Urine Total 600 ml # Voids 5 2 # Bowel Movements 2 1 General Appearance: WD/WN HEENT: normocephalic, atraumatic Respiratory/Chest: chest wall non-tender, lungs clear Cardiovascular: normal peripheral pulses, normal rate Abdomen: normal bowel sounds, soft, non tender Extremities: no cyanosis 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, abnormal gait Lymphatic: no neck adenopathy, no groin adenopathy Microbiology Date/Time Source Procedure Growth Status 08/20/16 13:00 Nasal Nares Influenza Types A,B Antigen (EMILIANA) - Final Complete 08/20/16 13:00 Sputum Induced Gram Stain - Final Resulted 08/20/16 13:00 Sputum Induced Sputum Culture Pending Resulted Laboratory Tests 08/21/16 05:10: White Blood Count 8.3#, Red Blood Count 3.33L, Hemoglobin 9.0L, Hematocrit 27.9L , Mean Corpuscular Volume 84, Mean Corpuscular Hemoglobin 26.9L, Mean Corpuscular Hemoglobin Concent 32.1, Red Cell Distribution Width 12.7, Platelet Count 89L, Mean Platelet Volume 9.0, Neutrophils (%) (Auto) , Lymphocytes (%) ( Auto) , Monocytes (%) (Auto) , Eosinophils (%) (Auto) , Basophils (%) (Auto) , Differential Total Cells Counted 100, Neutrophils % (Manual) 86H, Lymphocytes % (Manual) 7L, Monocytes % (Manual) 6, Eosinophils % (Manual) 0, Basophils % ( Manual) 0, Band Neutrophils 1, Platelet Estimate DecreasedL, Platelet Morphology Normal, Hypochromasia 1+, Prothrombin Time 10.5, Prothromb Time International Ratio 1.0, Sodium Level 136, Potassium Level 3.9, Chloride Level 99, Carbon Dioxide Level 25, Anion Gap 12, Blood Urea Nitrogen 40H, Creatinine 3.5H, Estimat Glomerular Filtration Rate 17.9, Glucose Level 279#H, Calcium Level 7.1L Current Medications Medications (Trade) Dose Ordered Sig/Laquita Route PRN Reason Start Time Stop Time Status Last Admin Dose Admin Acetaminophen/ Hydrocodone Bitart ([place] 5/325) 1 tab Q4H PRN ORAL Moderate Pain (Pain Scale 4-6) 08/17/16 01:45 08/24/16 01:44 08/21/16 08:14 Amlodipine Besylate (Norvasc) 10 mg DAILY ORAL 08/17/16 13:00 09/16/16 12:59 08/21/16 08:14 Aspirin (ASA) 81 mg DAILY ORAL 08/17/16 09:00 09/16/16 08:59 08/21/16 08:14 Clonidine HCl (Catapres) 0.1 mg Q4H PRN ORAL bp over 160 syst 08/17/16 11:45 09/16/16 11:44 08/17/16 15:50 Dextrose (Dextrose 50%) STAT PRN IV Hypoglycemia 08/17/16 14:00 09/16/16 13:59 Docusate Sodium 100 mg 100 mg THREE TIMES A DAY ORAL 08/19/16 13:00 09/18/16 12:59 08/21/16 13:21 Epoetin Solitario (Procrit (for non ESRD use)) 10,000 units SAT-WED-FRI SUBQ 08/20/16 21:00 09/19/16 20:59 08/20/16 20:55 Guaifenesin/ Dextromethorphan (Robitussin DM Syrup) 10 ml Q4H PRN ORAL For Cough 08/17/16 13:15 09/16/16 13:14 08/21/16 00:31 Insulin Aspart (NovoLOG) BEFORE MEALS AND HS SUBQ 08/17/16 06:30 09/16/16 06:29 08/21/16 15:30 Insulin Detemir (Levemir) 20 units DAILY SUBQ 08/17/16 09:00 09/16/16 08:59 08/21/16 08:14 Iron Sucrose/ Sodium Chloride (Venofer/Sodium Chloride) 115 ml @ 460 mls/hr BEDTIME IVPB 08/20/16 21:00 08/24/16 21:14 08/20/16 20:56 Levofloxacin 100 ml @ 100 mls/hr Q48H IVPB 08/20/16 13:00 08/27/16 12:59 08/20/16 13:26 Nitroglycerin (Ntg) 0.4 mg Q5M PRN SL Prn Chest Pain 08/17/16 01:30 09/16/16 01:29 08/17/16 07:49 Prochlorperazine (Compazine) 10 mg Q6H PRN IVP Nausea & Vomiting 08/20/16 17:45 09/19/16 17:44 Sodium Phosphate (Fleet's Sodium Phosl Enema) 133 ml DAILYPRN PRN RECTAL constipation 08/18/16 19:15 09/17/16 19:14 Tamsulosin HCl (Flomax) 0.4 mg BID ORAL 08/18/16 11:00 09/17/16 10:59 08/21/16 08:14 LINDA GREENWOOD Aug 21, 2016 16:51
[2016-08-21] MEDS ORDERED: NORVASC10 MG ORAL (16:53)
[2016-08-21] MEDS ORDERED: FLOMAX0.4 MG ORAL (16:53)
--- NOTE | 2016-08-21 17:39 | Internal Med Progress Note ---
Subjective Date of Service: Aug 21, 2016 Physician Name GilMarcus Attending Physician Renard Frances MD Current Medications Medications (Trade) Dose Ordered Sig/Laquita Route PRN Reason Start Time Stop Time Status Last Admin Dose Admin Acetaminophen/ Hydrocodone Bitart ([place] 5/325) 1 tab Q4H PRN ORAL Moderate Pain (Pain Scale 4-6) 08/17/16 01:45 08/24/16 01:44 08/21/16 08:14 Amlodipine Besylate (Norvasc) 10 mg DAILY ORAL 08/17/16 13:00 09/16/16 12:59 08/21/16 08:14 Aspirin (ASA) 81 mg DAILY ORAL 08/17/16 09:00 09/16/16 08:59 08/21/16 08:14 Clonidine HCl (Catapres) 0.1 mg Q4H PRN ORAL bp over 160 syst 08/17/16 11:45 09/16/16 11:44 08/17/16 15:50 Dextrose (Dextrose 50%) STAT PRN IV Hypoglycemia 08/17/16 14:00 09/16/16 13:59 Docusate Sodium 100 mg 100 mg THREE TIMES A DAY ORAL 08/19/16 13:00 09/18/16 12:59 08/21/16 13:21 Epoetin Solitario (Procrit (for non ESRD use)) 10,000 units SAT-WED-SAT SUBQ 08/20/16 21:00 09/19/16 20:59 08/20/16 20:55 Guaifenesin/ Dextromethorphan (Robitussin DM Syrup) 10 ml Q4H PRN ORAL For Cough 08/17/16 13:15 09/16/16 13:14 08/21/16 00:31 Insulin Aspart (NovoLOG) BEFORE MEALS AND HS SUBQ 08/17/16 06:30 09/16/16 06:29 08/21/16 15:30 Insulin Detemir (Levemir) 20 units DAILY SUBQ 08/17/16 09:00 09/16/16 08:59 08/21/16 08:14 Iron Sucrose/ Sodium Chloride (Venofer/Sodium Chloride) 115 ml @ 460 mls/hr BEDTIME IVPB 08/20/16 21:00 08/24/16 21:14 08/20/16 20:56 Levofloxacin 100 ml @ 100 mls/hr Q48H IVPB 08/20/16 13:00 08/27/16 12:59 08/20/16 13:26 Nitroglycerin (Ntg) 0.4 mg Q5M PRN SL Prn Chest Pain 08/17/16 01:30 09/16/16 01:29 08/17/16 07:49 Prochlorperazine (Compazine) 10 mg Q6H PRN IVP Nausea & Vomiting 08/20/16 17:45 09/19/16 17:44 Sodium Phosphate (Fleet's Sodium Phosl Enema) 133 ml DAILYPRN PRN RECTAL constipation 08/18/16 19:15 09/17/16 19:14 Tamsulosin HCl (Flomax) 0.4 mg BID ORAL 08/18/16 11:00 09/17/16 10:59 08/21/16 08:14 Allergies: Coded Allergies: No Known Allergies (Unverified , 08/16/16) ROS Limited/Unobtainable: No Constitutional: Reports: no symptoms HEENT: Reports: no symptoms Cardiovascular: Reports: chest pain Respiratory: Reports: cough Gastrointestinal/Abdominal: Reports: no symptoms Genitourinary: Reports: no symptoms Neurologic/Psychiatric: Reports: no symptoms Subjective 61 YO M admitted with cough and Chest pain. Cover for Counts Include 234 B[facility] At [facility] Med - Dr Frances. Worsening leukopenia Objective Last Vital Signs Date Time Temp Pulse Resp B/P Pulse Ox O2 Delivery O2 Flow Rate FiO2 08/21/16 16:00 97.5 74 18 149/81 94 Room Air 08/17/16 08:17 2.0 Laboratory Tests Test 08/21/16 05:10 White Blood Count 8.3 K/UL (4.8-10.8) # Red Blood Count 3.33 M/UL (4.70-6.10) L Hemoglobin 9.0 G/DL (14.2-18.0) L Hematocrit 27.9 % (42.0-52.0) L Mean Corpuscular Volume 84 FL (80-99) Mean Corpuscular Hemoglobin 26.9 PG (27.0-31.0) L Mean Corpuscular Hemoglobin Concent 32.1 G/DL (32.0-36.0) Red Cell Distribution Width 12.7 % (11.6-14.8) Platelet Count 89 K/UL (150-450) L Mean Platelet Volume 9.0 FL (6.5-10.1) Neutrophils (%) (Auto) % (45.0-75.0) Lymphocytes (%) (Auto) % (20.0-45.0) Monocytes (%) (Auto) % (1.0-10.0) Eosinophils (%) (Auto) % (0.0-3.0) Basophils (%) (Auto) % (0.0-2.0) Differential Total Cells Counted 100 Neutrophils % (Manual) 86 % (45-75) H Lymphocytes % (Manual) 7 % (20-45) L Monocytes % (Manual) 6 % (1-10) Eosinophils % (Manual) 0 % (0-3) Basophils % (Manual) 0 % (0-2) Band Neutrophils 1 % (0-8) Platelet Estimate Decreased L Platelet Morphology Normal Hypochromasia 1+ Prothrombin Time 10.5 SEC (9.30-11.50) Prothromb Time International Ratio 1.0 (0.9-1.1) Sodium Level 136 mEQ/L (135-145) Potassium Level 3.9 mEQ/L (3.4-4.9) Chloride Level 99 mEQ/L (98-107) Carbon Dioxide Level 25 mEQ/L (20-30) Anion Gap 12 (5-15) Blood Urea Nitrogen 40 mg/dL (7-23) H Creatinine 3.5 mg/dL (0.7-1.2) H Estimat Glomerular Filtration Rate 17.9 mL/min (>60) Glucose Level 279 mg/dL (74-106) #H Calcium Level 7.1 mg/dL (8.6-10.2) L Microbiology Date/Time Source Procedure Growth Status 08/20/16 13:00 Nasal Nares Influenza Types A,B Antigen (EMILIANA) - Final Complete 08/20/16 13:00 Sputum Induced Gram Stain - Final Resulted 08/20/16 13:00 Sputum Induced Sputum Culture Pending Resulted Intake and Output 08/20/16 08/21/16 19:00 07:00 Intake Total 820 ml 595 ml Output Total 600 ml Balance 820 ml -5 ml Intake Oral 720 ml 480 ml IV Total 100 ml 115 ml Output Urine Total 600 ml # Voids 5 2 # Bowel Movements 2 1 Objective General Appearance: WD/WN, no apparent distress, alert EENT: PERRL/EOMI, normal ENT inspection Neck: non-tender, normal alignment, supple, normal inspection Cardiovascular: normal peripheral pulses, normal rate, regular rhythm, no gallop/murmur, no JVD Respiratory/Chest: chest wall non-tender, respiratory distress, crackles/rales , rhonchi - bilaterally, expiratory wheezing Abdomen: normal bowel sounds, non tender, soft, no organomegaly, no mass Extremities: normal range of motion 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 (3) Diabetes mellitus Assessment & Plan: Cont levemir and humalog sliding scale. (4) HTN (hypertension) Assessment & Plan: Cont norvasc (5) Renal failure Assessment & Plan: See nephrology note. (6) Pleural effusion Assessment & Plan: See pulmonary note. (7) Pneumonia Assessment & Plan: Cont levaquin (8) Leukopenia Assessment & Plan: ?viral syndrome? See ID consult. Status: stable MARCUS GIL Aug 21, 2016 17:39
--- NOTE | 2016-08-21 18:22 | General Progress Note ---
Assessment/Plan Assessment/Plan IMPRESSION: 1. Pancytopenia, multifactorial. 2. Leukopenia, persistent, most likely related to sepsis versus viral infection versus medication. 3. Anemia of chronic disease. 4. Anemia of kidney disease. 5. Anemia of iron deficiency. 6. Decreased hemoglobin and hematocrit, rule out gastrointestinal bleed. 7. Thrombocytopenia, multifactorial. 8. Rule out heparin-induced thrombocytopenia. 9. Dyspnea likely secondary to pneumonia. 10. Pleuritic chest pain, rule out acute myocardial infarction. 11. Sinus tachycardia. 12. Diabetes mellitus. 13. Hypertension. 14. Severe mitral regurgitation. 15. Bilateral pleural effusion. 16. Malnutrition. 17. Failure to thrive. 18. Increase level of PSA,possible prostate cancer. RECOMMENDATIONS: 1. Watch counts. 2. Watch coagulopathy. 3. Epogen subcutaneously. 4. Iron IV. 5. PRBC transfusion on p.r.n. basis. 6. Check medication list, which one can decrease platelets count. 7. Discontinue heparin secondary to forceable decreased platelet count. 8. Discontinue Zofran secondary to forceable decreased platelet count. 9. Venous Doppler of bilateral lower extremities to rule out DVT. 10. SCD (compression boots) for DVT prophylaxis. 11. Neupogen on p.r.n. basis. 12. Platelet transfusion on p.r.n. basis. 13. Skin care. 14. Nutrition. 15. Cardiology followup. 16. Pulmonary followup. 17. Respiratory treatment. 18. Discussed with staff. 19. urology evaluation. Eliza Pérez Subjective Constitutional: Reports: no symptoms HEENT: Reports: no symptoms Cardiovascular: Reports: no symptoms Respiratory: Reports: no symptoms Gastrointestinal/Abdominal: Reports: no symptoms Genitourinary: Reports: no symptoms Neurologic/Psychiatric: Reports: no symptoms Endocrine: Reports: no symptoms Hematologic/Lymphatic: Reports: no symptoms Allergies: Coded Allergies: No Known Allergies (Unverified , 08/16/16) Objective Last 24 Hour Vital Signs Date Time Temp Pulse Resp B/P Pulse Ox O2 Delivery O2 Flow Rate FiO2 08/21/16 16:00 97.5 74 18 149/81 94 Room Air 08/21/16 11:55 97.7 68 20 141/80 97 Room Air 68 08/21/16 08:14 70 134/71 08/21/16 08:06 98.2 70 20 134/71 94 Room Air 70 08/21/16 04:00 97.9 73 18 152/84 94 Room Air 73 08/21/16 00:00 98.1 72 18 154/87 95 Room Air Intake and Output 08/20/16 08/21/16 17:00 05:00 Intake Total 1060 ml 355 ml Output Total 300 ml Balance 760 ml 355 ml Intake Oral 960 ml 240 ml IV Total 100 ml 115 ml Output Urine Total 300 ml # Voids 5 2 # Bowel Movements 2 1 Laboratory Tests 08/21/16 05:10: White Blood Count 8.3#, Red Blood Count 3.33L, Hemoglobin 9.0L, Hematocrit 27.9L , Mean Corpuscular Volume 84, Mean Corpuscular Hemoglobin 26.9L, Mean Corpuscular Hemoglobin Concent 32.1, Red Cell Distribution Width 12.7, Platelet Count 89L, Mean Platelet Volume 9.0, Neutrophils (%) (Auto) , Lymphocytes (%) ( Auto) , Monocytes (%) (Auto) , Eosinophils (%) (Auto) , Basophils (%) (Auto) , Differential Total Cells Counted 100, Neutrophils % (Manual) 86H, Lymphocytes % (Manual) 7L, Monocytes % (Manual) 6, Eosinophils % (Manual) 0, Basophils % ( Manual) 0, Band Neutrophils 1, Platelet Estimate DecreasedL, Platelet Morphology Normal, Hypochromasia 1+, Prothrombin Time 10.5, Prothromb Time International Ratio 1.0, Sodium Level 136, Potassium Level 3.9, Chloride Level 99, Carbon Dioxide Level 25, Anion Gap 12, Blood Urea Nitrogen 40H, Creatinine 3.5H, Estimat Glomerular Filtration Rate 17.9, Glucose Level 279#H, Calcium Level 7.1L Height (Feet): 5 Height (Inches): 7.00 Weight (Pounds): 180 General Appearance: alert EENT: TMs normal Neck: supple Cardiovascular: normal rate Abdomen: soft Pelvis: no masses Edema: no edema noted Arm (L), no edema noted Arm (R), no edema noted Leg (L), no edema noted Leg (R), no edema noted Pedal (L), no edema noted Pedal (R), no edema noted Generalized Edema: mild edema Neurologic: oriented x 3 Lymphatic: normal anterior cervical (L), normal anterior cervical (R), normal axillary (L), normal axillary (R), normal inguinal (L), normal inguinal (R), normal other, normal posterior cervical (L), normal posterior cervical (R), normal submandibular (L), normal submandibular (R), normal supraclavicular (L), normal supraclavicular (R) ELIZA PÉREZ Aug 21, 2016 18:22
[2016-08-22 21:09] LABS: MYCOPLASMA PNEUMONIAE AB IGG <100 U/mL (0-99); MYCOPLASMA PNEUMONIAE AB IGM <770 U/mL (0-769)
--- NOTE | 2016-08-23 09:53 | Discharge Summary ---
Discharge Summary Hospital Course Date of Admission Aug 16, 2016 at 08:30 Date of Discharge Aug 21, 2016 at 17:40 Admitting Diagnosis ACS, Renal Insufficiency HPI Usama Sims is a 61 year old male who was admitted on Aug 16, 2016 at 08:30 for Acute Coronary Syndrome,Renal Insufficiency Hospital Course [id number] Discharge Discharge Disposition Patient was discharged to Home (01) Discharge Diagnoses: Cookie Esparza NP Aug 23, 2016 09:53
[2016-08-23 11:12] LABS: HEMOGLOBIN A 98.3 % (94.0-98.0); HEMOGLOBIN A2 1.7 % (0.7-3.1)
--- NOTE | 2016-08-23 12:14 | Diagnostic Imaging Report ---
APPROVED REPORT CPT Code: 01969 Present Symptoms Comments: Abnormal labs BILATERAL: Imaging reveals a patent deep venous system bilaterally. There is no evidence of thrombus within the femoral, popliteal or tibial segments. The greater saphenous veins are also within normal limits. Doppler indicates normal spontaneous flow within these segments.
--- NOTE | 2016-08-24 01:18 | Discharge Summary 2 SIG ---
DATE OF ADMISSION: 08/16/2016 DATE OF DISCHARGE: 08/21/2016 ATTENDING PHYSICIAN: Renard Frances M.D. CONSULTANTS: 1. Omer Pérez M.D. 2. Jo Cano M.D. 3. Jo Wray M.D. 4. Richi Kimbrough M.D. 5. Al Adkins M.D. BRIEF HOSPITAL COURSE: The patient is a 61-year-old male, who presents complaining of cough and chest pain started on 08/15/2016. Cough and chest pain were so bad that he could not sleep and presented to ED and was admitted to rule out acute myocardial infarction and was admitted for cardiac monitoring. A CAT scan of the chest revealed bilateral pleural effusion. He was treated three weeks ago with oral antibiotics secondary to bronchitis/pneumonia. Pulmonology and Infectious Disease consultations were done. He was noted to have progressive leukopenia and was given Levaquin 500 mg q.48 h. Hematology consultation done. Pancytopenia, multifactorial and most likely related to sepsis and medications. He also had anemia secondary to chronic kidney disease and iron deficiency and was given iron IV and Epogen subcutaneously. Zofran and heparin were discontinued as a possible cause of decreased platelet count. He was given Neupogen. Echocardiogram showed sinus rhythm with no acute ischemic changes and pain was pleuritic. Cardiac enzymes were negative. The echocardiogram showed left ventricular ejection fraction of 50% to 55% with normal wall motion and no evidence of ischemia. He came in with azotemia and was seen by nephrology. Renal ultrasound was negative for hydronephrosis with a nonobstructive left renal calculi and right renal cyst. The patient has chronic kidney disease due to diabetic nephropathy and was given Flomax. A 24-hour urine protein was 12 and creatinine clearance 17. He was continued on Levaquin. Leukopenia improved. Influenza and human immunodeficiency virus were negative. The patient was discharged home to continue five more days of levofloxacin. FINAL DIAGNOSES: 1. Pneumonia. 2. Pleuritic chest pain. 3. Diabetes mellitus with diabetic nephropathy. 4. Acute renal failure. 5. Pleural effusion. 6. Pancytopenia. 7. Anemia of chronic disease. 8. Anemia of kidney disease. 9. Anemia of iron deficiency. 10. Acute kidney injury with acute tubular necrosis. 11. Severe mitral regurgitation. 12. Nephrotic-range proteinuria. 13. Right ninth rib fracture. 14. Hypertension, out of control. Jo Cano M.D. I have been assigned to dictate discharge summary on this account and I was not involved in the patient's management. Cookie Esparza N.P. DR: RAMÍREZ JOB#: [id number] CC:
== END 2016-08-21 17:40 | disposition home or self-care (01) | DRG 139 ==
LOC: EDBD 07:04 → EMR 07:28 → 2E 08:30 → EDBEDREQ 09:21 → 4W 08-17 01:48 → 3E 08-19 06:35
DX: J18.9 Pneumonia, unspecified organism (principal); N17.0 Acute kidney failure with tubular necrosis; D61.818 Other pancytopenia; E46 Unspecified protein-calorie malnutrition; E11.22 Type 2 diabetes mellitus with diabetic chronic kidney disease; I16.0 Hypertensive urgency; I12.9 Hypertensive chronic kidney disease with stage 1 through stage 4 chronic kidney disease, or unspecified chronic kidney disease; N18.9 Chronic kidney disease, unspecified; E11.649 Type 2 diabetes mellitus with hypoglycemia without coma; I34.0 Nonrheumatic mitral (valve) insufficiency; S22.31XA Fracture of one rib, right side, initial encounter for closed fracture; R97.20 Elevated prostate specific antigen [PSA]; J98.11 Atelectasis; R62.7 Adult failure to thrive; Z68.28 Body mass index [BMI] 28.0-28.9, adult; Z79.82 Long term (current) use of aspirin; X58.XXXA Exposure to other specified factors, initial encounter; Y92.89 Other specified places as the place of occurrence of the external cause
CPT/HCPCS: 36415; 71010; 71250; 76775; 80048; 80053; 80061; 81001; 81050; 82164; 82270; 82436; 82533; 82550; 82553; 82575; 82607; 82728; 82746; 82962; 82977; 83020; 83036; 83540; 83550; 83615; 83735; 83880; 83930; 83935; 84100; 84133; 84153; 84156; 84300; 84439; 84443; 84481; 84484; 84550; 85007; 85025; 85610; 85651; 86140; 86703; 86705; 86709; 86710; 86738; 86803; 87040; 87070; 87081; 87205; 87340; 89050; 93005; 93306; 93970; 94640; 94664; J1815; S5561